=== PATIENT | female | born 1935 | race Caucasian/White ===

== ENCOUNTER 2020-06-14 12:25 | Outpatient (REF) | payer MEDICARE, SELFPAY ==
[2020-06-14 14:30] LABS: Alanine Aminotransferase 14 U/L (0-31); Alkaline Phosphatase 87 U/L (39-117); Anion Gap 14 (12-20); Aspartate Amino Transferase 12 U/L (5-31); Bilirubin Total 0.4 mg/dL (0.0-1.0); Blood Urea Nitrogen 30 mg/dL (9-16); Carbon Dioxide 25 mmol/L (22-29); Chloride 104 mmol/L (96-108); Estimated Glomerular Filt Rate 26; Glucose Random 81 mg/dL (60-115); Potassium 4.1 mmol/L (3.3-5.1); Sodium 139 mmol/L (135-145); Total Protein 6.8 g/dL (6.5-8.0)
[2020-06-14 14:33] LABS: B Type Natriuretic Peptide 38 pg/mL (<100)
[2020-06-14 14:53] LABS: TSH reflex Free T4 0.94 uIU/mL (0.32-4.0)
== END 2020-06-14 12:26 | disposition home or self-care (01) ==
LOC: HO.HMGCLDS 12:25
PROVIDERS: PCP Nurse Practitioner Family; Visit Provider Nurse Practitioner Family
DX: R06.02 Shortness of breath (principal); I10 Essential (primary) hypertension
CPT/HCPCS: 36415; 80053; 83880; 84443

== ENCOUNTER 2021-04-11 11:28 | Outpatient (REF) | payer MEDICARE, SELFPAY ==
[2021-04-11 12:10] LABS: Influenza A PCR NEGATIVE (Negative); Influenza B PCR NEGATIVE (Negative); Resp Syncy Virus RNA Qual PCR NEGATIVE (Negative); SARS COV2 PCR INHOUSE POSITIVE (Negative)
== END 2021-04-11 11:29 | disposition home or self-care (01) ==
LOC: HO.LNP 11:28
PROVIDERS: Visit Provider Nurse Practitioner Family
DX: R11.0 Nausea (principal); R63.0 Anorexia; Z20.822 Contact with and (suspected) exposure to COVID-19
CPT/HCPCS: 0241U

== ENCOUNTER 2022-04-30 12:53 | Outpatient (REF) | payer MEDICARE, SELFPAY ==
[2022-04-30 14:15] LABS: Basophils Absolute Auto 0.1 X10*3/uL (0.0-0.2); Basophils Percent Auto 0.3 % (0-2); Eosinophils Absolute Auto 0.2 X10*3/uL (0.0-0.4); Eosinophils Percent Auto 1.2 % (0-4); Hematocrit 39.3 % (37.0-47.0); Hemoglobin 12.3 g/dl (12.0-16.0); Imm Gran Abs Auto 0.11 X10*3/uL (0.00-0.03); Imm Gran Pct Auto 0.7 % (0.0-0.4); Lymphocytes Absolute Auto 3.9 X10*3/uL (1.2-4.9); MANUAL DIFF FLAG NO; Mean Corpuscular HGB Conc 31.3 g/dl (31.0-35.0); Mean Corpuscular Hemoglobin 29.5 pg (27.0-33.0); Mean Corpuscular Volume 94.2 fL (80.0-98.0); Mean Platelet Volume 9.8 fL (9.4-12.3); Monocytes Percent Auto 6.1 % (2-11); Neutrophils Percent Auto 67.7 % (45-73); Platelet Count 427 X10*3/uL (160-400); Red Blood Count 4.17 X10*6/uL (4.20-5.50); Red Cell Distribution Width 13.9 % (11.0-16.0); White Blood Count 16.2 X10*3/uL (4.8-10.8)
[2022-04-30 14:58] LABS: B Type Natriuretic Peptide 51 pg/mL (<100)
[2022-04-30 15:40] LABS: Alanine Aminotransferase 9 U/L (0-31); Albumin Level 3.9 g/dL (3.5-5.0); Alkaline Phosphatase 90 U/L (39-117); Anion Gap 16 (12-20); Aspartate Amino Transferase 12 U/L (5-31); Bilirubin Total 0.6 mg/dL (0.0-1.0); Blood Urea Nitrogen 34 mg/dL (9-16); Calcium 9.3 mg/dL (8.4-10.2); Carbon Dioxide 25 mmol/L (22-29); Chloride 106 mmol/L (96-108); Cholesterol 174 mg/dL; Estimated Glomerular Filt Rate 25; Glucose Fasting 78 mg/dL (60-99); Glucose Random 78 mg/dL (60-115); HDL Cholesterol 42 mg/dL; LDL Cholesterol Calculated 108 mg/dl; Sodium 142 mmol/L (135-145); TSH reflex Free T4 1.15 uIU/mL (0.32-4.0); Total Protein 6.6 g/dL (6.5-8.0); Triglycerides 120 mg/dL
== END 2022-04-30 12:54 | disposition home or self-care (01) ==
LOC: HO.HMGCLDS 12:53
PROVIDERS: PCP Nurse Practitioner Family; Visit Provider Nurse Practitioner Family
DX: R30.0 Dysuria (principal); R60.9 Edema, unspecified; R06.02 Shortness of breath
CPT/HCPCS: 36415; 80053; 80061; 83880; 84443; 85025

== ENCOUNTER 2022-05-03 07:49 | Outpatient (REF) | payer MEDICARE, SELFPAY ==
[2022-05-03 11:39] LABS: Appearance Urine Clear; Color Urine Yellow; Glucose Urine UA Negative (Negative); Leukocyte Esterase Urine Negative (Negative); Nitrite Urine Negative (Negative); PH 6.5 (5.0-9.0); Specific Gravity - Urine 1.015 (1.005-1.025); Urine Blood Negative (Negative); Urine Ketones Negative (Negative); Urine Protein Negative (Neg-Trace)
== END 2022-05-03 07:50 | disposition home or self-care (01) ==
LOC: HO.HMGCLNP 07:49
PROVIDERS: Visit Provider Nurse Practitioner Family
DX: R30.0 Dysuria (principal); R06.02 Shortness of breath
CPT/HCPCS: 81003; 87086

== ENCOUNTER 2022-05-06 12:44 | Outpatient (REF) | payer MEDICARE, SELFPAY ==
--- NOTE | ~2022-05-06 | XR_ITS ---
EXAMINATION: XR CHEST 2 VIEWS CLINICAL INFORMATION: Shortness of breath. COMPARISON: None. TECHNIQUE: Frontal and lateral views of the chest were obtained. FINDINGS: The heart, great vessels, pulmonary vasculature and mediastinum are normal. The lungs show no focal infiltrate, effusion or pneumothorax. There is mild to moderate platelike scar/subsegmental atelectasis at the right base. There is no acute osseous abnormality. There is a moderately severe thoracolumbar Scoliosis. XR/XR chest 2V IMPRESSION: 1. No focal infiltrate or congestive heart clear is seen. 2. There is chronic right base mild to moderate platelike scar/subsegmental atelectasis.
[2022-05-06 14:26] LABS: D Dimer High Sensitivity 536 NG/ML
== END 2022-05-06 12:45 | disposition home or self-care (01) ==
LOC: HO.HMGCLDS 12:44
PROVIDERS: Visit Provider Nurse Practitioner Family
DX: R06.02 Shortness of breath (principal)
CPT/HCPCS: 71046; 85379

== ENCOUNTER 2022-05-09 14:30 | Outpatient (REF) | payer MEDICARE, SELFPAY ==
--- NOTE | ~2022-05-09 | US_ITS ---
EXAMINATION: US VENOUS ULTRASOUND WITH DOPPLER LOWER EXTREMITY, BILATERAL CLINICAL INFORMATION: Elevated d-dimer COMPARISON: None TECHNIQUE: Ultrasound of the deep veins is performed from the hip to the calf with compression sonography and color and pulse Doppler assessment. Spectral analysis with color-flow imaging is performed. FINDINGS: RIGHT: There is normal venous compression and respiratory variation and augmented flow. The visualized common femoral vein, superficial femoral vein, profunda femoral vein, popliteal vein, and the trifurcation region shows no evidence of deep venous thrombosis. There is no significant popliteal fossa cyst. There is a complex Freeman's cyst measuring 2.1 x 4.3 x 1.5 cm LEFT: There is normal venous compression and respiratory variation and augmented flow. The visualized common femoral vein, superficial femoral vein, profunda femoral vein, popliteal vein, and the trifurcation region shows no evidence of deep venous thrombosis. There is no significant popliteal fossa cyst. There is a complex Freeman's cyst present measuring 2.9 x 4.7 x 1.5 cm If the patient's symptoms persist, followup ultrasound in 5 days 7 days might be of value to exclude proximal propagation from a non-visualized calf vein. US/US venous duplex LE BI IMPRESSION: No DVT demonstrated in either lower extremity. Bilateral complex Freeman's cysts.
--- NOTE | ~2022-05-09 | NM_ITS ---
EXAMINATION: NM LUNG IMAGE PERFUSION CLINICAL INFORMATION: Elevated d-dimer. R79.89. Dyspnea. COMPARISON: Chest x-ray 05/06/2022 TECHNIQUE: 3.1 mCi technetium 99m MAA was given for perfusion. Multiple images of the lung performed. FINDINGS: There is homogeneous perfusion of the right and left lungs. No perfusion defect. NM/NM pul perfusion IMPRESSION: Normal lung perfusion exam. No evidence of pulmonary embolism.
== END 2022-05-09 14:31 | disposition home or self-care (01) ==
LOC: HO.US 14:30
PROVIDERS: Visit Provider Nurse Practitioner Family
DX: R60.0 Localized edema (principal); R79.89 Other specified abnormal findings of blood chemistry; R06.02 Shortness of breath
CPT/HCPCS: 78580; 93970; A9540

== ENCOUNTER → 2022-06-20 10:47 | Outpatient (REF) | payer MEDICARE, SELFPAY ==
--- NOTE | 2022-06-20 10:52 | CA_ITS ---
Transthoracic Echocardiogram Patient (Last, First, Middle): Spencer Benitez E Gender: Female Date of : 1935 Age: 87 Procedure Date: 06/20/2022 Procedure Type: Transthoracic Echocardiogram Location: OP Height: 165. cm Weight: 90.72 kg BSA: 1.98 m2 Heart Rate: 68 bpm BP: 140 / 85 mmHg Medical Services Coordinator: AUDREY Waddell MD: Seng Dalton [facility] [employer]: Tayo Cheung MD Symptoms: R60.9 - Edema, unspecified Study Quality: Poor ECG Rhythm: Sinus Conclusions: - 1. Technically limited study 2. Normal LV systolic function with impaired relaxation filling pattern 3. Limited visualization cardiac valves with normal cardiac valvular Doppler 4. Normal RV systolic pressure Findings Left Ventricle Normal left ventricular size and systolic function. The visually estimated ejection fraction is between 60-65%. Regional wall motion abnormalities can not be excluded due to suboptimal endocardial definition. Spectral Doppler is indicative of an impaired relaxation filling pattern. E/E prime ratio is between 8 and 15 consistent with indeterminate filling pressures. Right Ventricle There is normal right ventricular systolic function. Atria The left atrium is normal in size. Interatrial shunt cannot be excluded. The right atrium was not well visualized. Aortic Valve The aortic valve was not well visualized. There is mild calcification of the aortic valve. There is no aortic valve stenosis. There is no aortic valve regurgitation. Mitral Valve The mitral valve was not well visualized. There is trace mitral valve regurgitation. There is no mitral valve stenosis. Pulmonic Valve The pulmonic valve was not well visualized. Tricuspid Valve Likely normal tricuspid valve structure and function. There is trace tricuspid valve regurgitation. The right ventricular systolic pressure is normal. The right ventricular systolic pressure is 26 mmHg. Normal right atrial pressure. Great Vessels The aorta was not well visualized. The pulmonary artery was not well visualized. Venous The inferior vena cava is normal in size and collapses greater than 50% with inspiration. Pericardium/Pleural The pericardium was not well visualized. Prior Study Comparison No prior study available for comparison. Measurements 2D Linear Measurements IVSd: 1.21 0.6-0.9/0.6-1.0 cm LVIDd: 4.16 3.9-5.3/4.2-5.9 cm LVIDd Index: 2.10 2.4-3.2/2.2-3.1 cm/m2 LVIDs: 2.08 2.0-3.6 cm LVPWd: 1.13 0.7-1.1 cm LA Diam: 2.70 2.7-3.8/3.0-4.0 cm LAIDs Index: 1.36 1.5-2.3 cm/m2 LV Mass: 210.74 67-162/88-224 g LV Mass Index: 106.43 43-95/49-115 g/m2 LVOT Diam: 2.10 3.0+(-)1.3 cm 2D Systolic Function EF 4C: 60.40 >55% EF 2C: 68.50 >55% EF BiP: 64.10 >55% Mitral Valve MV Pk E: 0.96 MV PK A: 1.54 MV Decel Time: 339.00 E/A: 0.60 E'Lateral: 6.13 E'Medial: 5.34 E/E' Med: 18.00 E/E' Lat: 15.70 PHT: 99.00 MVA PHT: 2.22 Decel Scurry: 2.83 Aortic Valve AoV Pk Gaston: 1.65 AoV Mn Gaston: 1.20 AoV VTI: 0.42 AoV Pk Grad: 11.00 Aov Mn Grad: 6.00 ANGELINA Cont.VTI: 2.96 LVOT LVOT Pk Gaston: 1.39 LVOT Mn Gaston: 1.02 LVOT VTI: 0.36 LVOT Pk Grad: 8.00 LVOT Mn Grad: 5.00 LVOT Diam: 2.10 LVOT Area: 3.46 Diastolic Function MV Pk E: 0.96 MV Pk A: 1.54 E/A: 0.60 E'Medial: 5.34 E/E' Med: 18.00 E' Laterial: 6.13 E/E' Lat: 15.70 Right Ventricle TAPSE (mm): 23.90 TVS' Gaston: 13.10 Tricuspid Valve TR Pk Gaston: 2.38 TR Pk Grad: 23.00 RA Press: 3.00 RVSP: 26.00 Great Vessels Aorta Sinus of Valsalva: 3.20 2.0-3.5 cm Ao Asc: 3.70 2.1-3.4 cm Pulmonary Valve PV Pk Gaston: 0.81 Peak PV Grad: 3.00 Updated in Other Vendor System with Status of Final Tayo Cheung MD electronically signed on 06/20/2022 3:38:33 PM with status of Final
== END ==
LOC: HO.CARD 10:47
PROVIDERS: Visit Provider Nurse Practitioner Family
DX: R60.9 Edema, unspecified (principal)
CPT/HCPCS: 93306

== ENCOUNTER → 2022-06-26 11:02 | Outpatient (REF) | payer MEDICARE, SELFPAY | LOC: HO.NUCMED 11:02 | PROVIDERS: PCP Nurse Practitioner Family; Visit Provider Nurse Practitioner Family | DX: Z13.89 Encounter for screening for other disorder (principal) ==

== ENCOUNTER 2022-08-24 21:21 | Emergency (ER) | payer MEDICARE, SELFPAY ==
--- NOTE | ~2022-08-24 | CT_ITS ---
EXAMINATION: CT CHEST WITHOUT CONTRAST CT ABDOMEN AND PELVIS WITHOUT CONTRAST CLINICAL INFORMATION: Status post fall 6 days ago, worsening pain. COMPARISON: Chest x-ray of 05/06/2022, CT abdomen and pelvis of 12/02/2014. TECHNIQUE: Multidetector volumetric imaging was performed from the thoracic inlet through the pubic symphysis following the administration of: Oral contrast: No Intravenous contrast: No Sagittal and coronal reformatted images were obtained on the technologist workstation. Total exam dose-length product: 1298 mGy-cm FINDINGS: CHEST: VASCULAR: The aorta is normal in caliber. Moderate calcific atherosclerosis of the aorta. No evidence of periaortic fat stranding or hematoma. Moderate to severe calcifications of the left coronary arteries. AORTIC ISTHMUS: Normal. MEDIASTINUM: No mediastinal fluid or hematoma. No hilar or mediastinal lymphadenopathy. Cardiac size is normal. Small hiatal hernia. Small volume low-density material is noted in the right mainstem bronchus representing mucus secretion. Trachea and central bronchi are otherwise well patent. LUNG: Mild biapical pleural parenchymal scarring. Scattered areas of subsegmental atelectasis in the lingula as well as the right middle lobe and bilateral lower lobe at the lung bases. PLEURA: No evidence of pneumothorax. No evidence of pleural mass or thickening. No left pleural effusion. Very small right pleural effusion. CHEST WALL/AXILLA: Unremarkable. ABDOMEN/PELVIS: LIVER : The liver is normal in size, shape, and attenuation. No focal hepatic lesion or biliary ductal dilatation is present. GALLBLADDER, AND BILIARY TREE: The gallbladder is mildly distended. Multiple small layering calcified and noncalcified gallstones are noted. No evidence of gallbladder wall thickening. No evidence of pericholecystic inflammatory changes. No evidence of intrahepatic or extrahepatic biliary ductal dilatation. No filling defect is noted in the common bile duct. PANCREAS: Normal; no mass or surrounding fluid. SPLEEN: Normal size. No focal lesion. ADRENAL GLANDS: Normal; no mass. KIDNEYS AND URETERS: The kidneys are normal in size for patient's age. There is mild diffuse bilateral renal cortical thinning. Vascular calcifications are noted in the bilateral renal kate. Small calcification measuring 0.5 cm in the lower pole of the left kidney may represent a calculus or vascular calcification. No hydroureteronephrosis or perinephric stranding. URINARY BLADDER: No focal mass or wall thickening seen. No bladder calculi. GASTROINTESTINAL TRACT: The stomach is adequately distended and unremarkable. No evidence of from abnormal small bowel dilatation. The colon is normal in caliber. No evidence of colonic wall thickening or pericolonic fat stranding. Pancolonic diverticulosis. An appendix is normal. VASCULAR STRUCTURES: The aortoiliac vessels are normal in caliber. Moderate calcific atherosclerosis of the aortoiliac vessels. LYMPH NODES: No evidence of pathologically enlarged lymph nodes. PELVIC VISCERA: Stable and unremarkable CT appearance of the uterus. No adnexal mass. Multiple phleboliths are noted in the pelvis. PERITONEAL CAVITY: No evidence of free intraperitoneal air or fluid. ABDOMINAL WALL: No significant hernia is appreciated. THORACIC AND LUMBAR SPINE: Diffuse osteopenia. Normal sagittal alignment of the thoracic spine. Moderate to severe compression fracture of T11 is noted with approximately 70% loss of body height, the finding is new compared to previous CT scan of 2015. Remainder of the vertebral body heights are maintained. Mild narrowing of the multiple intervertebral disc spaces in the thoracic spine with vacuum disc phenomenon noted in the mid and lower thoracic spine. Lumbar vertebral body heights are maintained. There is stable grade 1 anterolisthesis of L4 over L5. Degenerative disc disease is noted at multiple levels. Facet arthropathy is noted in the mid to lower lumbar spine. OTHER OSSEOUS STRUCTURES: The imaged portions of the clavicles, scapulae, and proximal humeri are intact. Displaced fractures are noted of the posterior lateral segment of the right 11th and 10th ribs. Sternum is intact. No sacral or pelvic fracture, The hips are intact. CT/CT abdomen pelvis wo IV con IMPRESSION: 1. Displaced fractures of the posterior-lateral segment of the right 10th and 11th ribs. No evidence of pneumothorax. Small right pleural effusion. Streaky atelectasis in the right middle lobe, lingula and bilateral lower lobes. 2. Moderate to severe compression fracture of T11 vertebral body with approximately 70% loss of body height, the finding is new compared to previous CT scan of 2015. 3. No evidence of acute traumatic injury in the abdomen and pelvis. 4. Pancolonic diverticulosis without acute diverticulitis. 5. Cholelithiasis.
[2022-08-24 21:27] VITALS: BP 142/93; BP 150/100; PULSE 105; PULSE 95; RESP 16; TEMP 37.2; O2SAT 95; BMI 45.2
--- NOTE | 2022-08-24 21:41 | ED_ITS ---
HPI - General Adult General Chief complaint: General Medical Stated complaint: Abd Pain Time Seen by Provider: 08/24/22 21:30 Source: patient Mode of arrival: EMS Limitations: no limitations History of Present Illness HPI narrative: Patient comes to the emergency room complaining of posterior rib pain on the right side and right-sided abdominal pain. Patient states that 6 days ago she fell between the toilet and the bathtub, when she landed she had the bathtub with the right side of her body. Patient states she did not hit her head or neck, did not lose consciousness, no pain at this time. Not on blood thinners. Patient states that the next day, went to Urgent Care, x-rays were negative according to the patient for any fractures. Patient states that she has been trying to deal with the pain at home, tried tramadol, made her vomit violently, then her PCP gave her Vicodin which helped significantly with the pain. However, over the last 12 hours, the pain has gradually been getting much worse, but now it is in the right-side of the abdomen which was not there before. Patient denies nausea vomiting or diarrhea. Related Data Home Medications Medication Instructions Recorded Confirmed ezetimibe 10 mg tablet 10 mg PO DAILY 01/27/20 01/08/22 brimonidine 0.2 % eye drops 1 drp ophthalmic (eye) Q12H 08/27/21 01/08/22 latanoprost 0.005 % eye drops 0 drp ophthalmic (eye) 08/27/21 01/08/22 timolol maleate 0.5 % eye drops 0 drp ophthalmic (eye) 08/27/21 01/08/22 aspirin 81 mg tablet,delayed 81 mg PO DAILY 01/08/22 01/08/22 release (Talia Low Dose Aspirin) vit C 250 mg-E 90 mg-zinc 40 1 tab PO BID 01/08/22 01/08/22 mg-copper 1 [id number] chew tablet (PreserVision AREDS-2) Previous Rx's Medication Instructions Recorded alprazolam 0.5 mg tablet 0.5 mg PO BID PRN anxiety 30 days 04/30/21 #60 tabs Knee brace #2 ea 08/27/21 nystatin 100,000 unit/gram topical 1 appl topical DAILY #60 grams 01/08/22 powder irbesartan 150 1 tab PO DAILY 30 days #90 tabs 01/11/22 mg-hydrochlorothiazide 12.5 mg tablet alprazolam 0.5 mg tablet 0.5 mg PO BID 30 days #60 tabs 06/03/22 prednisone 5 mg tablet 5 mg PO DAILY #30 tabs 06/03/22 ezetimibe 10 mg tablet 10 mg PO DAILY 90 days #90 tabs 06/06/22 irbesartan 150 1 tab PO DAILY #90 tabs 06/27/22 mg-hydrochlorothiazide 12.5 mg tablet furosemide 20 mg tablet 20 mg PO QAM 5 days #5 tabs 07/01/22 hydrocodone 5 mg-acetaminophen 325 1 tab PO DAILY PRN pain 30 days 08/21/22 mg tablet #30 tabs oxycodone 5 mg tablet 5 mg PO BID PRN pain #7 tabs 08/25/22 polyethylene glycol 3350 17 17 g PO BID #119 grams 08/25/22 gram/dose oral powder (Miralax) Allergies Allergy/AdvReac Type Severity Reaction Status Date / Time codeine [CODEINE] Allergy Unknown EXACERBATES Verified 05/07/22 13:19 HERNIA IN ESOPHAGUS? Sulfa (Sulfonamide Allergy Unknown rash Verified 05/07/22 13:19 Antibiotics) amoxicillin AdvReac Unknown Yeast Verified 05/07/22 13:19 infection rosuvastatin [Crestor] AdvReac Unknown Worsened Verified 05/07/22 13:19 PMR Codeine Phosphate Allergy Unknown unknown Uncoded 05/07/22 13:19 Clotrimazole-Betamethasone AdvReac Unknown Red Uncoded 05/07/22 13:19 blotches on skin Review of Systems Review of Systems: Constitutional : No Weight loss, No Fever, No Chills, No Night Sweats, No Fatigue, No Malaise ENT/Mouth : No Hearing loss, No Ear Pain, No Nasal Congestion, No Sinus Pain, No Hoarseness, No sore throat, No Rhinorrhea, No Swallowing Difficulty Eyes: No Eye Pain, No Swelling, No Redness, No Foreign Body, No Discharge, No Vision Changes Cardiovascular : No Chest Pain, No SOB, No Dyspnea on Exertion, No Orthopnea, No Edema, No Palpitations Respiratory : No Cough, No Sputum, No Wheezing, No Smoke Exposure, No Dyspnea Gastrointestinal : No Nausea, No Vomiting, No Diarrhea, No Constipation, complaining of right-sided abdominal pain No Hematochezia, No Melena Genitourinary : no irregular bleeding, No Dysuria, No Urinary Frequency, No Hematuria, No Urinary Incontinence, No Urgency, No Flank Pain, No Urinary Flow Changes, No Hesitancy Musculoskeletal : Complaining of right back pain/right rib pain posteriorly and laterally, No joint pain, No Myalgias, No Joint Swelling Skin : No Skin Lesions, No rash Neuro : No Weakness, No Numbness, No Paresthesias, No Loss of Consciousness, No Dizziness, No Headache Psych : No Anxiety/Panic, No Depression, No SI/HI/AH/VH, No Social Issues, Heme/Lymph: No Bruising, No Bleeding,No Lymphadenopathy Endocrine : No Polyuria, No Polydipsia, No Temperature Intolerance [facility] Past Medical History Medical History CKD (chronic kidney disease) HTN (hypertension) Polymyalgia rheumatica Surgical History History of breast lump/mass excision S/P tonsillectomy and adenoidectomy Family History Family History Father CVD (cardiovascular disease) Mother Cancer Social History [facility] Alcohol intake: current Alcohol intake frequency: holidays/special occasions only Alcohol type: beer, wine and hard liquor Patient Tobacco Use Status: Former Tobacco user Quit Date: quit 4-5 years ago Smoked in Last 30 Days: No e-Cigarette/Vaping Use: Never Used Second Hand Smoke Exposure: No Use of substances other than those prescribed or required for medical reasons: No Advance Directives: No Advance Directives Information Provided: Yes Current occupational status: retired Cognitive needs: No Hearing needs: No Vision needs: No Physical Exam ED Vital Signs: Vital Signs - 24 hr 08/24/22 21:27 08/24/22 22:53 08/25/22 00:33 Temperature 98.9 F Pulse Rate 95 88 77 Respiratory Rate 16 15 16 Blood Pressure 142/93 H 139/90 H Pulse Oximetry 95 98 94 Oxygen Delivery Method Room Air Room Air Room Air 08/25/22 00:39 Temperature 97.6 F Pulse Rate 86 Respiratory Rate 14 Blood Pressure 146/50 H Pulse Oximetry 95 Oxygen Delivery Method Room Air BMI result Body Mass Index 45.2 Const Other: Appearance: Alert. Oriented X3. No acute distress. Eyes: Pupils equal, round and reactive to light. ENT: Pharynx normal. Neck: Normal inspection. Neck supple. No lymph nodes noted. No crepitus CVS: Normal heart rate and rhythm. Pulses normal. Normal S1 and S2 Respiratory: No respiratory distress. Breath sounds normal. No Wheezing. No rales Abdomen: Soft , right-sided abdominal pain, upper and lower quadrant, right flank pain, No rigidity. No distention. Skin: Skin warm and dry. Normal skin color. Normal skin turgor. Musculoskeletal: Pain to palpation over the ribs on the right side, both posterior and laterally Extremities: No lower extremity edema. No Lacerations. No Rash Neuro: Oriented X 3. No motor deficit. No sensory deficit. Moving all extremities. No slurred speech. CN 2 through 12 grossly intact Psych: calm, cooperative, normal affect Course Course Course Narrative: -labs and CT scan painting -patient was given morphine sulfate and Zofran IV Medications Administered Discontinued Medications Generic Name Dose Route Start Last Admin Trade Name Freq PRN Reason Stop Dose Admin Hydromorphone HCl 0.5 mg 08/25/22 00:35 08/25/22 00:57 Hydromorphone Hcl 0.5 Mg/0.5 Ml Syringe IVPUSH 08/25/22 00:36 0.5 mg ONCE ONE Administration Protocol Morphine Sulfate 4 mg 08/24/22 21:39 08/24/22 23:10 Morphine Sulfate 4 Mg/Ml Cartridge IVPUSH 08/24/22 21:40 4 mg ONCE ONE Administration Protocol Ondansetron HCl 4 mg 08/24/22 22:57 08/24/22 23:10 Ondansetron Odt 4 Mg Tab.Rapdis TRANSLINGU 08/24/22 22:58 4 mg ONCE ONE Administration Medical Decision Making Medical Decision Making MDM Narrative: -white blood cell count elevated likely reactive to reactive leukocytosis -I discussed the CT findings with the patient, there is a T11 compression fracture. Patient states that she does not have any back pain at all. -I discussed with the patient that the patient has displayed rib fracture 10th and 11th, likely the source of the patient's pain. -case management and physical therapy consult were offered to the patient, patient declined, patient prefers to go home, states she lives at home with her grandson and his girlfriend who take care of her. Differential Diagnosis Differential Diagnoses: The differential diagnosis associated with the presentation includes (Old compression fracture, new compression fracture, rib fractures, rib contusion) Lab Data MDM Lab Attestation statement: I reviewed the patient's lab results. 08/24/22 22:26 08/24/22 22: Labs: Lab Results 08/24/22 08/24/22 08/24/22 Range/Units 22:26 22:26 22:26 WBC 13.3 H (4.8-10.8) X10*3/uL RBC 3.88 L (4.20-5.50) X10*6/uL Hgb 11.6 L (12.0-16.0) g/dl Hct 35.8 L (37.0-47.0) % MCV 92.3 (80.0-98.0) fL MCH 29.9 (27.0-33.0) pg MCHC 32.4 (31.0-35.0) g/dl RDW 13.5 (11.0-16.0) % Plt Count 469 H (160-400) X10*3/uL MPV 9.3 L (9.4-12.3) fL Immature Gran % (Auto) 0.8 H (0.0-0.4) % Neut % (Auto) 64.0 (45-73) % Lymph % (Auto) 22.0 (20-40) % [place] % (Auto) 8.4 (2-11) % Eos % (Auto) 4.4 H (0-4) % Baso % (Auto) 0.4 (0-2) % Lymph # (Auto) 2.9 (1.2-4.9) X10*3/uL [place] # (Auto) 1.1 (0.1-1.2) X10*3/uL Eos # (Auto) 0.6 H (0.0-0.4) X10*3/uL Baso # (Auto) 0.1 (0.0-0.2) X10*3/uL Abs Immat Gran (auto) 0.10 H (0.00-0.03) X10*3/uL Absolute Neuts (auto) 8.5 H (2.0-8.3) x10*3/uL Absolute Nucleated RBC 0.000 (0.0-0.012) X10*3/uL Nucleated RBC % (auto) 0.0 (0.0-0.2) /100WBC PT 12.1 (10.0-13.1) SEC INR 1.1 (0.9-1.1) Sodium 141 (135-145) mmol/L Potassium 4.5 (3.3-5.1) mmol/L Chloride 106 (96-108) mmol/L Carbon Dioxide 26 (22-29) mmol/L Anion Gap 14 (12-20) BUN 33 H (9-16) mg/dL Creatinine 2.19 H (0.5-1.4) mg/dL Estim Creat Clear Calc 24.7 Estimated GFR 21 Random Glucose 107 (60-115) mg/dL Calcium 9.4 (8.4-10.2) mg/dL Total Bilirubin 0.6 (0.0-1.0) mg/dL Direct Bilirubin 0.2 (0.0-0.5) mg/dL AST 19 (5-31) U/L ALT 17 (0-31) U/L Alkaline Phosphatase 100 (39-117) U/L Total Protein 6.2 L (6.5-8.0) g/dL Albumin 3.5 (3.5-5.0) g/dL Radiology Impression Radiologist Impression: FINDINGS: CHEST: VASCULAR: The aorta is normal in caliber. Moderate calcific atherosclerosis of the aorta. No evidence of periaortic fat stranding or hematoma. Moderate to severe calcifications of the left coronary arteries. AORTIC ISTHMUS: Normal. MEDIASTINUM: No mediastinal fluid or hematoma.? No hilar or mediastinal lymphadenopathy. Cardiac size is normal. Small hiatal hernia. Small volume low-density material is noted in the right mainstem bronchus representing mucus secretion. Trachea and central bronchi are otherwise well patent. LUNG: Mild biapical pleural parenchymal scarring. Scattered areas of subsegmental atelectasis in the lingula as well as the right middle lobe and bilateral lower lobe at the lung bases. PLEURA: No evidence of pneumothorax. No evidence of pleural mass or thickening. No left pleural effusion. Very small right pleural effusion. CHEST WALL/AXILLA: Unremarkable. ABDOMEN/PELVIS: LIVER : The liver is normal in size, shape, and attenuation. No focal hepatic lesion or biliary ductal dilatation is present.? GALLBLADDER, AND BILIARY TREE: The gallbladder is mildly distended. Multiple small layering calcified and noncalcified gallstones are noted. No evidence of gallbladder wall thickening. No evidence of pericholecystic inflammatory changes. No evidence of intrahepatic or extrahepatic biliary ductal dilatation. No filling defect is noted in the common bile duct. PANCREAS: Normal; no mass or surrounding fluid.? SPLEEN: Normal size.? No focal lesion.? ADRENAL GLANDS: Normal; no mass.? KIDNEYS AND URETERS: The kidneys are normal in size for patient's age. There is mild diffuse bilateral renal cortical thinning. Vascular calcifications are noted in the bilateral renal kate. Small calcification measuring 0.5 cm in the lower pole of the left kidney may represent a calculus or vascular calcification. No hydroureteronephrosis or perinephric stranding.? URINARY BLADDER: No focal mass or wall thickening seen.? No bladder calculi.? GASTROINTESTINAL TRACT: The stomach is adequately distended and unremarkable. No evidence of from abnormal small bowel dilatation. The colon is normal in caliber. No evidence of colonic wall thickening or pericolonic fat stranding. Pancolonic diverticulosis. An appendix is normal. VASCULAR STRUCTURES: The aortoiliac vessels are normal in caliber. Moderate calcific atherosclerosis of the aortoiliac vessels. LYMPH NODES: No evidence of pathologically enlarged lymph nodes.? PELVIC VISCERA: Stable and unremarkable CT appearance of the uterus. No adnexal mass. Multiple phleboliths are noted in the pelvis. PERITONEAL CAVITY: No evidence of free intraperitoneal air or fluid. ABDOMINAL WALL: No significant hernia is appreciated.? THORACIC AND LUMBAR SPINE: Diffuse osteopenia. Normal sagittal alignment of the thoracic spine. Moderate to severe compression fracture of T11 is noted with approximately 70% loss of body height, the finding is new compared to previous CT scan of 2015. Remainder of the vertebral body heights are maintained. Mild narrowing of the multiple intervertebral disc spaces in the thoracic spine with vacuum disc phenomenon noted in the mid and lower thoracic spine. Lumbar vertebral body heights are maintained. There is stable grade 1 anterolisthesis of L4 over L5. Degenerative disc disease is noted at multiple levels. Facet arthropathy is noted in the mid to lower lumbar spine. OTHER OSSEOUS STRUCTURES: The imaged portions of the clavicles, scapulae, and proximal humeri are intact. Displaced fractures are noted of the posterior lateral segment of the right 11th and 10th ribs. Sternum is intact. No sacral or pelvic fracture, The hips are intact. CT/CT chest wo IV con IMPRESSION: 1.? Displaced fractures of the posterior-lateral segment of the right 10th and 11th ribs. No evidence of pneumothorax. Small right pleural effusion. Streaky atelectasis in the right middle lobe, lingula and bilateral lower lobes. 2.? Moderate to severe compression fracture of T11 vertebral body with approximately 70% loss of body height, the finding is new compared to previous CT scan of 2015. 3.? No evidence of acute traumatic injury in the abdomen and pelvis. 4.? Pancolonic diverticulosis without acute diverticulitis. 5.? Cholelithiasis. ? Discharge Plan Discharge Clinical Impression: Fractured rib, Fall Patient Disposition: Home, Self-Care Instructions: Rib Fracture (ED) Additional Instructions: Please follow-up with your primary care physician tomorrow. If you have any worsening or new symptoms, please return to the emergency room or call 911 Prescriptions: New oxycodone 5 mg tablet 5 mg PO BID PRN (Reason: pain) Qty: 7 0RF Rx Instructions: Partial Fill upon patient request. polyethylene glycol 3350 [Miralax] 17 gram/dose powder 17 g PO BID Qty: 119 0RF No Action alprazolam 0.5 mg tablet 0.5 mg PO BID PRN (Reason: anxiety) 30 Days Qty: 60 2RF irbesartan-hydrochlorothiazide 150-12.5 mg tablet 1 tab PO DAILY 30 Days Qty: 90 0RF alprazolam 0.5 mg tablet 0.5 mg PO BID 30 Days Qty: 60 0RF prednisone 5 mg tablet 5 mg PO DAILY Qty: 30 4RF ezetimibe 10 mg tablet 10 mg PO DAILY 90 Days Qty: 90 4RF irbesartan-hydrochlorothiazide 150-12.5 mg tablet 1 tab PO DAILY Qty: 90 0RF furosemide 20 mg tablet 20 mg PO QAM 5 Days Qty: 5 0RF hydrocodone-acetaminophen 5-325 mg tablet 1 tab PO DAILY PRN (Reason: pain) 30 Days Qty: 30 0RF ezetimibe 10 mg tablet 10 mg PO DAILY timolol maleate 0.5 % drops 0 drp ophthalmic (eye) brimonidine 0.2 % drops 1 drp ophthalmic (eye) Q12H latanoprost 0.005 % drops 0 drp ophthalmic (eye) (DME) Knee brace Misc See Rx Instructions .Route Qty: 2 0RF Rx Instructions: Bilateral knee braces (hinged knee braces) aspirin [Talia Low Dose Aspirin] 81 mg tablet,delayed release (DR/EC) 81 mg PO DAILY PreserVision AREDS-2 250-90-40-1 mg tablet,chewable 1 tab PO BID nystatin 100,000 unit/gram powder 1 appl topical DAILY Qty: 60 1RF
--- NOTE | 2022-08-24 22:28 | PC.NURSE ---
unable to obtain IV access, this RN and Elsa VIGIL both attempted. MD Mcfarland aware. Just requesting lab work at this time, will re-evaluate when lab work is back for need for IV
[2022-08-24 22:30] LABS: MANUAL DIFF FLAG NO
[2022-08-24 22:33] LABS: Basophils Absolute Auto 0.1 X10*3/uL (0.0-0.2); Basophils Percent Auto 0.4 % (0-2); Eosinophils Absolute Auto 0.6 X10*3/uL (0.0-0.4); Eosinophils Percent Auto 4.4 % (0-4); Hematocrit 35.8 % (37.0-47.0); Hemoglobin 11.6 g/dl (12.0-16.0); Imm Gran Pct Auto 0.8 % (0.0-0.4); Lymphocytes Absolute Auto 2.9 X10*3/uL (1.2-4.9); Mean Corpuscular HGB Conc 32.4 g/dl (31.0-35.0); Mean Corpuscular Hemoglobin 29.9 pg (27.0-33.0); Mean Corpuscular Volume 92.3 fL (80.0-98.0); Mean Platelet Volume 9.3 fL (9.4-12.3); Monocytes Absolute Auto 1.1 X10*3/uL (0.1-1.2); Monocytes Percent Auto 8.4 % (2-11); Neutrophils Absolute Auto 8.5 x10*3/uL (2.0-8.3); Platelet Count 469 X10*3/uL (160-400); Red Blood Count 3.88 X10*6/uL (4.20-5.50); Red Cell Distribution Width 13.5 % (11.0-16.0); White Blood Count 13.3 X10*3/uL (4.8-10.8)
[2022-08-24 22:44] LABS: INTERNATIONAL NORM RATIO 1.1 (0.9-1.1); Prothrombin Time 12.1 SEC (10.0-13.1)
[2022-08-24 22:47] LABS: Alanine Aminotransferase 17 U/L (0-31); Albumin Level 3.5 g/dL (3.5-5.0); Alkaline Phosphatase 100 U/L (39-117); Anion Gap 14 (12-20); Aspartate Amino Transferase 19 U/L (5-31); Bilirubin Direct 0.2 mg/dL (0.0-0.5); Bilirubin Total 0.6 mg/dL (0.0-1.0); Blood Urea Nitrogen 33 mg/dL (9-16); Calcium 9.4 mg/dL (8.4-10.2); Carbon Dioxide 26 mmol/L (22-29); Chloride 106 mmol/L (96-108); Creatinine Clr Calc Pharmacy 24.7; Estimated Glomerular Filt Rate 21; Glucose Random 107 mg/dL (60-115); Potassium 4.5 mmol/L (3.3-5.1); Sodium 141 mmol/L (135-145); Total Protein 6.2 g/dL (6.5-8.0)
[2022-08-24 22:53] VITALS: BP 139/90; PULSE 88; RESP 15; O2SAT 98
--- NOTE | 2022-08-24 22:58 | PC.NURSE ---
MD verbal order to cancel IV push zofran and to give sublingual. Also, to instead give morphine IM instead of IV. Both due to no IV access
[2022-08-24] MEDS: Ondansetron ODT 4 MG TAB.RAPDIS TRANSLINGU (23:10)
[2022-08-24] MEDS: Morphine Sulfate 4 MG/ML CARTRIDGE IVPUSH (23:10)
--- NOTE | 2022-08-25 00:32 | PC.NURSE ---
pt reports that the pain medication provided no relief, MD Mcfarland aware at this time
[2022-08-25 00:33] VITALS: PULSE 77; RESP 16; O2SAT 94
[2022-08-25 00:39] VITALS: BP 146/50; PULSE 86; RESP 14; TEMP 36.4; O2SAT 95
[2022-08-25] MEDS: HYDROmorphone HCl 0.5 MG/0.5 ML SYRINGE IVPUSH (00:57)
--- NOTE | 2022-08-25 01:12 | PC.NURSE ---
pt repostioned in bed for comfort and provided pain medication per MAR. No apparent distress at this time, awaiting CT scan
== END 2022-08-25 02:59 | disposition home or self-care (01) ==
PROVIDERS: Emergency Provider Emergency Medicine
DX: S22.41XA Multiple fractures of ribs, right side, initial encounter for closed fracture (principal); W19.XXXA Unspecified fall, initial encounter; Y93.89 Activity, other specified; Y92.012 Bathroom of single-family (private) house as the place of occurrence of the external cause; Y99.9 Unspecified external cause status; Z79.899 Other long term (current) drug therapy
CPT/HCPCS: 36415; 71250; 74176; 80048; 80076; 85025; 85610; 96374; 96375; 99284; J1170; J2270

== ENCOUNTER 2022-09-07 09:48 | Emergency (ER) | payer MEDICARE, SELFPAY ==
--- NOTE | ~2022-09-07 | XR_ITS ---
EXAMINATION: XR CHEST CLINICAL INFORMATION: Shortness of breath COMPARISON: May 06, 2022 and September 13, 2019 TECHNIQUE: AP portable view of the chest was obtained. FINDINGS: There is no evidence of acute parenchymal disease, pneumothorax, or pleural effusion. Heart normal size. No evidence of pulmonary edema. Mild persistent elevation of the left hemidiaphragm. Bilateral linear scarring lung bases. XR/XR chest 1V IMPRESSION: No acute disease.
[2022-09-07 09:54] VITALS: BP 147/91; PULSE 81; RESP 18; TEMP 36.4; O2SAT 99; BMI 33.3
--- NOTE | 2022-09-07 09:57 | ECG_ITS ---
Test Reason : DYSPNEA Blood Pressure : / mmHG Vent. Rate : 076 BPM Atrial Rate : 076 BPM P-R Int : 182 ms QRS Dur : 068 ms QT Int : 366 ms P-R-T Axes : 040 -10 066 degrees QTc Int : 411 ms Sinus rhythm with Premature atrial complexes Left ventricular hypertrophy with repolarization abnormality ( R in aVL ) Abnormal ECG No previous ECGs available Referred By: Generic ED Physician Electronically Signed By:NANCY HUNT MD
--- NOTE | 2022-09-07 11:10 | ED_ITS ---
HPI - General Adult General Chief complaint: Dyspnea Stated complaint: sent from , swollen legs, fractured ribs, SOB Time Seen by Provider: 09/07/22 10:59 Source: patient Mode of arrival: ambulatory Limitations: no limitations History of Present Illness HPI narrative: 87-year-old female came in from walk-in clinic in [place] for further evaluation, patient fell 2 weeks ago had a right-sided rib fracture senses then patient is not the same thinking that she is deteriorating patient is been complaining of right-sided chest pain and difficulty with breathing, bilateral lower extremities swelling. Patient lives home with her son, has no pain medication at home to help her with the pain. Related Data Home Medications Medication Instructions Recorded Confirmed ezetimibe 10 mg tablet 10 mg PO DAILY 01/27/20 01/08/22 brimonidine 0.2 % eye drops 1 drp ophthalmic (eye) Q12H 08/27/21 01/08/22 latanoprost 0.005 % eye drops 0 drp ophthalmic (eye) 08/27/21 01/08/22 timolol maleate 0.5 % eye drops 0 drp ophthalmic (eye) 08/27/21 01/08/22 aspirin 81 mg tablet,delayed 81 mg PO DAILY 01/08/22 01/08/22 release (Talia Low Dose Aspirin) vit C 250 mg-E 90 mg-zinc 40 1 tab PO BID 01/08/22 01/08/22 mg-copper 1 [id number] chew tablet (PreserVision AREDS-2) Previous Rx's Medication Instructions Recorded alprazolam 0.5 mg tablet 0.5 mg PO BID PRN anxiety 30 days 04/30/21 #60 tabs Knee brace #2 ea 08/27/21 nystatin 100,000 unit/gram topical 1 appl topical DAILY #60 grams 01/08/22 powder irbesartan 150 1 tab PO DAILY 30 days #90 tabs 01/11/22 mg-hydrochlorothiazide 12.5 mg tablet alprazolam 0.5 mg tablet 0.5 mg PO BID 30 days #60 tabs 06/03/22 prednisone 5 mg tablet 5 mg PO DAILY #30 tabs 06/03/22 ezetimibe 10 mg tablet 10 mg PO DAILY 90 days #90 tabs 06/06/22 irbesartan 150 1 tab PO DAILY #90 tabs 06/27/22 mg-hydrochlorothiazide 12.5 mg tablet furosemide 20 mg tablet 20 mg PO QAM 5 days #5 tabs 07/01/22 oxycodone 5 mg tablet 5 mg PO BID PRN pain #7 tabs 08/25/22 polyethylene glycol 3350 17 17 g PO BID #119 grams 08/25/22 gram/dose oral powder (Miralax) hydrocodone 5 mg-acetaminophen 325 1 tab PO DAILY PRN pain 30 days 08/27/22 mg tablet #30 tabs oxycodone 5 mg tablet 5 mg PO Q8H PRN pain #20 tabs 09/07/22 Allergies Allergy/AdvReac Type Severity Reaction Status Date / Time codeine [CODEINE] Allergy Unknown EXACERBATES Verified 09/07/22 09:53 HERNIA IN ESOPHAGUS? Sulfa (Sulfonamide Allergy Unknown rash Verified 09/07/22 09:53 Antibiotics) tramadol AdvReac Intermediate Nausea Verified 09/07/22 09:54 amoxicillin AdvReac Unknown Yeast Verified 09/07/22 09:53 infection rosuvastatin [Crestor] AdvReac Unknown Worsened Verified 09/07/22 09:53 PMR Codeine Phosphate Allergy Unknown unknown Uncoded 05/07/22 13:19 Clotrimazole-Betamethasone AdvReac Unknown Red Uncoded 05/07/22 13:19 blotches on skin Review of Systems Review of Systems: All other systems are reviewed and are negative Constitutional: Reports as per HPI and Reports no additional constitutional complaints Eyes: Reports as per HPI and Reports no additional eye complaints Reports system reviewed and no additional complaints, except as documented Cardiovascular: Reports as per HPI and Reports no additional cardiovascular complaints Respiratory: Reports as per HPI and Reports no additional respiratory complaints Gastrointestinal: Reports as per HPI and Reports no additional gastrointestinal complaints Genitourinary: Reports no additional female genitourinary complaints Musculoskeletal: Reports no additional musculoskeletal complaints Skin/Breast: Reports system reviewed and no additional complaints, except as docu Psychiatric: Reports no additional psychiatric complaints Endocrine: Reports no additional endocrine complaints Hematologic/Lymphatic: Reports no additional hematologic/lymphatic complaints Allergic/Immunologic: Reports no additional allergic/immunologic complaints Reports system reviewed and no additional complaints, except as documented and Reports Abnormal speech present PMFSH Past Medical History Medical History CKD (chronic kidney disease) HTN (hypertension) Polymyalgia rheumatica Surgical History History of breast lump/mass excision S/P tonsillectomy and adenoidectomy Family History Family History Father CVD (cardiovascular disease) Mother Cancer Social History Social History Housing: [facility] Alcohol intake: current Alcohol intake frequency: holidays/special occasions only Alcohol type: beer, wine and hard liquor Patient Tobacco Use Status: Former Tobacco user Quit Date: quit 4-5 years ago e-Cigarette/Vaping Use: Never Used Second Hand Smoke Exposure: No Advance Directives: No Current occupational status: retired Cognitive needs: No Hearing needs: No Vision needs: No Physical Exam ED Vital Signs: Vital Signs - 24 hr 09/07/22 09:54 Temperature 97.6 F Pulse Rate 81 Respiratory Rate 18 Blood Pressure 147/91 H Pulse Oximetry 99 Oxygen Delivery Method Room Air BMI result Body Mass Index 33.3 Vital signs have been reviewed as appeared to be correct. Blood pressure normal. Heart rate normal. Respiration rate normal. Temperature normal. Oxygen saturation normal. Appearance: Alert. Oriented X3. No acute distress. Head: Normal external exam. Normocephalic. Atraumatic. No Kamara signs noted. No raccoon eyes noted Eyes: PERRLA. EOMI. Conjunctiva and sclera normal. Eyelids normal. ENT: TM's Normal. Pharynx normal. Uvula midline. Moist mucous membranes. No trismus noted. No drooling noted. No muffled voice noted. Neck: Normal inspection. Neck supple. FROM. No adenopathy. Thyroid Normal. No meningeal signs. No neck mass noted. CVS: Normal heart rate and rhythm. Heart sound normal. No murmurs noted. Pulses normal throughout. Respiratory: No respiratory distress. Painless inspiration. Breath sounds normal. No wheezes/rales/rhonchi noted. Chest S tender to touch on the right side of the ribs.. No accessory muscle usage noted or decreased air movement noted. Abdomen: Soft and nontender. Bowel sounds normal in all 4 quadrants. No distention noted. No organomegaly noted. No visible injury noted. Back: No CVA tenderness. Full range of motion noted. Skin: Skin warm and dry. Normal skin color. Normal skin turgor. No rashes/lesions/lacerations noted. Extremities: No lower extremity edema. Extremities exhibit normal range of motion. Extremities nontender. Neuro: Oriented X 3. Cranial nerve exam: II-XII are grossly intact No motor deficit. No sensory deficit. Reflexes normal. Course Course Course Narrative: Right-sided chest wall pain due to rib fracture will prescribe oxycodone to help with the pain and incentive spirometry for pulmonary exercising. No sign of CHF will discharge to follow-up with PCP. Medical Decision Making Differential Diagnosis Differential Diagnoses: The differential diagnosis associated with the presentation includes (ACS, CHF, electrolyte abnormalities, severe anemia, chest wall pain.) Admission/Observation Consideration of admission/observation: Escalation of care including admission/observation considered Lab Data MDM Lab Attestation statement: I reviewed the patient's lab results. 09/07/22 11:04 09/07/22 11:04 Labs: Lab Results 09/07/22 09/07/22 09/07/22 Range/Units 11:04 11:04 11:04 WBC 12.8 H (4.8-10.8) X10*3/uL RBC 4.04 L (4.20-5.50) X10*6/uL Hgb 11.9 L (12.0-16.0) g/dl Hct 37.8 (37.0-47.0) % MCV 93.6 (80.0-98.0) fL MCH 29.5 (27.0-33.0) pg MCHC 31.5 (31.0-35.0) g/dl RDW 13.3 (11.0-16.0) % Plt Count 385 (160-400) X10*3/uL MPV 9.3 L (9.4-12.3) fL Immature Gran % (Auto) 0.5 H (0.0-0.4) % Neut % (Auto) 71.7 (45-73) % Lymph % (Auto) 18.2 L (20-40) % [place] % (Auto) 7.1 (2-11) % Eos % (Auto) 2.0 (0-4) % Baso % (Auto) 0.5 (0-2) % Lymph # (Auto) 2.3 (1.2-4.9) X10*3/uL [place] # (Auto) 0.9 (0.1-1.2) X10*3/uL Eos # (Auto) 0.3 (0.0-0.4) X10*3/uL Baso # (Auto) 0.1 (0.0-0.2) X10*3/uL Abs Immat Gran (auto) 0.06 H (0.00-0.03) X10*3/uL Absolute Neuts (auto) 9.2 H (2.0-8.3) x10*3/uL Absolute Nucleated RBC 0.000 (0.0-0.012) X10*3/uL Nucleated RBC % (auto) 0.0 (0.0-0.2) /100WBC Sodium 143 (135-145) mmol/L Potassium 4.5 (3.3-5.1) mmol/L Chloride 109 H (96-108) mmol/L Carbon Dioxide 21 L (22-29) mmol/L Anion Gap 18 (12-20) BUN 24 H (9-16) mg/dL Creatinine 1.94 H (0.5-1.4) mg/dL Estim Creat Clear Calc 22.7 Estimated GFR 24 Random Glucose 101 (60-115) mg/dL Calcium 9.5 (8.4-10.2) mg/dL Total Bilirubin 1.1 H (0.0-1.0) mg/dL Direct Bilirubin 0.4 (0.0-0.5) mg/dL AST 13 (5-31) U/L ALT 9 (0-31) U/L Alkaline Phosphatase 119 H (39-117) U/L Troponin I High Sens 6.3 (<3.5-17.0) ng/L B-Natriuretic Peptide (<100) pg/mL Total Protein 6.5 (6.5-8.0) g/dL Albumin 3.6 (3.5-5.0) g/dL Lipase 61 (8-78) U/L 09/07/22 Range/Units 11:04 WBC (4.8-10.8) X10*3/uL RBC (4.20-5.50) X10*6/uL Hgb (12.0-16.0) g/dl Hct (37.0-47.0) % MCV (80.0-98.0) fL MCH (27.0-33.0) pg MCHC (31.0-35.0) g/dl RDW (11.0-16.0) % Plt Count (160-400) X10*3/uL MPV (9.4-12.3) fL Immature Gran % (Auto) (0.0-0.4) % Neut % (Auto) (45-73) % Lymph % (Auto) (20-40) % [place] % (Auto) (2-11) % Eos % (Auto) (0-4) % Baso % (Auto) (0-2) % Lymph # (Auto) (1.2-4.9) X10*3/uL [place] # (Auto) (0.1-1.2) X10*3/uL Eos # (Auto) (0.0-0.4) X10*3/uL Baso # (Auto) (0.0-0.2) X10*3/uL Abs Immat Gran (auto) (0.00-0.03) X10*3/uL Absolute Neuts (auto) (2.0-8.3) x10*3/uL Absolute Nucleated RBC (0.0-0.012) X10*3/uL Nucleated RBC % (auto) (0.0-0.2) /100WBC Sodium (135-145) mmol/L Potassium (3.3-5.1) mmol/L Chloride (96-108) mmol/L Carbon Dioxide (22-29) mmol/L Anion Gap (12-20) BUN (9-16) mg/dL Creatinine (0.5-1.4) mg/dL Estim Creat Clear Calc Estimated GFR Random Glucose (60-115) mg/dL Calcium (8.4-10.2) mg/dL Total Bilirubin (0.0-1.0) mg/dL Direct Bilirubin (0.0-0.5) mg/dL AST (5-31) U/L ALT (0-31) U/L Alkaline Phosphatase (39-117) U/L Troponin I High Sens (<3.5-17.0) ng/L B-Natriuretic Peptide 62 (<100) pg/mL Total Protein (6.5-8.0) g/dL Albumin (3.5-5.0) g/dL Lipase (8-78) U/L Independent Interpretation I performed an independent interpretation of an: Plain X-Ray (Chest: No acute intrathoracic pathology.) Radiology Impression Discussion of test interpretation with radiology: I have reviewed the radiologist's reading. Discharge Plan Discharge Clinical Impression: Fracture, ribs, Chest wall pain Patient Disposition: Home, Self-Care Instructions: Rib Fracture (ED) Prescriptions: New oxycodone 5 mg tablet 5 mg PO Q8H PRN (Reason: pain) Qty: 20 0RF Rx Instructions: Partial Fill upon patient request. No Action alprazolam 0.5 mg tablet 0.5 mg PO BID PRN (Reason: anxiety) 30 Days Qty: 60 2RF irbesartan-hydrochlorothiazide 150-12.5 mg tablet 1 tab PO DAILY 30 Days Qty: 90 0RF alprazolam 0.5 mg tablet 0.5 mg PO BID 30 Days Qty: 60 0RF prednisone 5 mg tablet 5 mg PO DAILY Qty: 30 4RF ezetimibe 10 mg tablet 10 mg PO DAILY 90 Days Qty: 90 4RF irbesartan-hydrochlorothiazide 150-12.5 mg tablet 1 tab PO DAILY Qty: 90 0RF furosemide 20 mg tablet 20 mg PO QAM 5 Days Qty: 5 0RF hydrocodone-acetaminophen 5-325 mg tablet 1 tab PO DAILY PRN (Reason: pain) 30 Days Qty: 30 0RF oxycodone 5 mg tablet 5 mg PO BID PRN (Reason: pain) Qty: 7 0RF Rx Instructions: Partial Fill upon patient request. polyethylene glycol 3350 [Miralax] 17 gram/dose powder 17 g PO BID Qty: 119 0RF ezetimibe 10 mg tablet 10 mg PO DAILY timolol maleate 0.5 % drops 0 drp ophthalmic (eye) brimonidine 0.2 % drops 1 drp ophthalmic (eye) Q12H latanoprost 0.005 % drops 0 drp ophthalmic (eye) (DME) Knee brace Misc See Rx Instructions .Route Qty: 2 0RF Rx Instructions: Bilateral knee braces (hinged knee braces) aspirin [Talia Low Dose Aspirin] 81 mg tablet,delayed release (DR/EC) 81 mg PO DAILY PreserVision AREDS-2 250-90-40-1 mg tablet,chewable 1 tab PO BID nystatin 100,000 unit/gram powder 1 appl topical DAILY Qty: 60 1RF Referrals: Seng Dalton, [employer] [Primary Care Provider] -
[2022-09-07 11:11] LABS: MANUAL DIFF FLAG NO
[2022-09-07 11:14] LABS: Basophils Absolute Auto 0.1 X10*3/uL (0.0-0.2); Basophils Percent Auto 0.5 % (0-2); Eosinophils Absolute Auto 0.3 X10*3/uL (0.0-0.4); Hematocrit 37.8 % (37.0-47.0); Hemoglobin 11.9 g/dl (12.0-16.0); Imm Gran Abs Auto 0.06 X10*3/uL (0.00-0.03); Imm Gran Pct Auto 0.5 % (0.0-0.4); Lymphocytes Absolute Auto 2.3 X10*3/uL (1.2-4.9); Lymphocytes Percent Auto 18.2 % (20-40); Mean Corpuscular HGB Conc 31.5 g/dl (31.0-35.0); Mean Corpuscular Hemoglobin 29.5 pg (27.0-33.0); Mean Corpuscular Volume 93.6 fL (80.0-98.0); Mean Platelet Volume 9.3 fL (9.4-12.3); Monocytes Absolute Auto 0.9 X10*3/uL (0.1-1.2); Monocytes Percent Auto 7.1 % (2-11); Neutrophils Absolute Auto 9.2 x10*3/uL (2.0-8.3); Neutrophils Percent Auto 71.7 % (45-73); Platelet Count 385 X10*3/uL (160-400); Red Blood Count 4.04 X10*6/uL (4.20-5.50); Red Cell Distribution Width 13.3 % (11.0-16.0); White Blood Count 12.8 X10*3/uL (4.8-10.8)
[2022-09-07 11:28] LABS: Alanine Aminotransferase 9 U/L (0-31); Albumin Level 3.6 g/dL (3.5-5.0); Alkaline Phosphatase 119 U/L (39-117); Anion Gap 18 (12-20); Aspartate Amino Transferase 13 U/L (5-31); Bilirubin Direct 0.4 mg/dL (0.0-0.5); Bilirubin Total 1.1 mg/dL (0.0-1.0); Blood Urea Nitrogen 24 mg/dL (9-16); Calcium 9.5 mg/dL (8.4-10.2); Carbon Dioxide 21 mmol/L (22-29); Chloride 109 mmol/L (96-108); Creatinine Clr Calc Pharmacy 22.7; Estimated Glomerular Filt Rate 24; Glucose Random 101 mg/dL (60-115); Lipase 61 U/L (8-78); Potassium 4.5 mmol/L (3.3-5.1); Sodium 143 mmol/L (135-145); Total Protein 6.5 g/dL (6.5-8.0)
[2022-09-07 11:34] LABS: Troponin-I High Sensitivity 6.3 ng/L (<3.5-17.0)
[2022-09-07 11:41] LABS: B Type Natriuretic Peptide 62 pg/mL (<100)
[2022-09-07] MEDS: oxyCODONE HCl Immed Release 5 MG TABLET PO (15:26)
[2022-09-07 15:31] VITALS: BP 151/68; PULSE 91; RESP 18; O2SAT 96
== END 2022-09-07 15:37 | disposition home or self-care (01) ==
PROVIDERS: Emergency Provider Emergency Medicine; PCP Nurse Practitioner Family
DX: R06.02 Shortness of breath (principal); R60.0 Localized edema; Z79.899 Other long term (current) drug therapy
CPT/HCPCS: 36415; 71045; 80048; 80076; 83690; 83880; 84484; 85025; 93005; 99284

== ENCOUNTER 2022-11-20 11:01 | Inpatient (IN) | payer MEDICARE, SELFPAY ==
[2022-11-20] VITALS (9 sets, daily range): BP systolic 101–159; BP diastolic 35–51; PULSE 73–97; RESP 15–21; TEMP 36.6–36.7; O2SAT 93–100; BMI 33.3
--- NOTE | ~2022-11-20 | CT_ITS ---
EXAMINATION: CT CHEST WITHOUT CONTRAST CLINICAL INFORMATION: Cough, fevers and white count. COMPARISON: None available. TECHNIQUE: Multidetector volumetric CT imaging of the chest was done. Axial MIP volume rendering provided. Sagittal and coronal reformatted images were obtained. This CT examination was performed using dose optimization techniques as appropriate, variously including the following: *Automated exposure control *Adjustment of mA and/or kV according to patient size (this includes techniques or standardized protocols for targeted exams where dose is matched to indication/reason for exam; i.e. extremities or head) *Use of iterative reconstruction technique DLP: 410 mGy-cm FINDINGS: PIANO TECHNICIAN: Unremarkable chest exam LUNGS: Lungs are well-expanded with bilateral apical scarring slightly more prominent in the right lung apex. There is mild bronchiectasis in both upper lobes and both lower lobes with peribronchial thickening and parenchymal scarring in both lower lobes. No pneumonic consolidation mass seen. There is a 3 minute subpleural nodule right lower lobe axial image 263/5. There is bilateral subpleural reticular thickening likely sequelae of chronic changes. MEDIASTINUM: The thyroid lobes are symmetrical and normal. Central trachea and the bronchi widely patent. Heart size and the great vessels are normal caliber. No pericardial effusion seen. No abnormal size mediastinal or hilar lymph nodes seen. CORONARY ARTERY CALCIFICATION: Moderate coronary artery calcifications are present. PLEURA: There is no pleural effusion. No pleural mass or thickening. AXILLA: No lymphadenopathy. UPPER ABDOMEN: Visualized liver, spleen, pancreas and bilateral adrenal glands are unremarkable. OSSEOUS STRUCTURES: There is T12 compression fracture unchanged to CT chest 08/24/2022. There are degenerative disc changes and vacuum disc phenomena at several mid and lower dorsal spine disc levels. There are healing right posterior 10th and 11th ribs CT/CT chest wo IV con IMPRESSION: There is bilateral apical pleural thickening and parenchymal scarring slightly progressed in the right lung apex since the last exam. Small subpleural nodule right lower lobe pleural-based is stable. Atelectatic changes in the right middle lobe and lingula as well as chronic scarring in both lung bases is stable and unchanged. Chronic T12 compression fracture stable. Healing fractures right posterior 10th and 11th ribs are stable. Fleischner guidelines were followed.
--- NOTE | ~2022-11-20 | XR_ITS ---
EXAMINATION: XR CHEST CLINICAL INFORMATION: Productive cough. COMPARISON: 09/07/2022 chest radiograph. TECHNIQUE: 2 views of the chest were obtained. FINDINGS: No significant abnormality is noted involving the heart, lungs, mediastinum, bony thorax or soft tissues. XR/XR chest 2V IMPRESSION: No acute cardiopulmonary process.
--- NOTE | 2022-11-20 11:13 | ED.SOB ---
HPI - SOB/Dyspnea General Chief Complaint: Upper Respiratory Symptoms Stated Complaint: Diff breathing Time Seen by Provider: 11/20/22 11:40 Source: patient Mode of arrival: ambulatory Limitations: no limitations History of Present Illness HPI Narrative: 87 y female with hx of HTN, PMR on daily prednisone 5mg, anxiety, CKD who notes about a month ago she had a cough and it went away but this past week she has very much more short of breath with cough and sputum production but no fevers. She has not traveled or had sick contacts. She reports no smoking or known lung disease. NO treatment by a doctor in the last week. MD elicited complaint: shortness of breath and cough Onset (ago): week(s) (1) Context: recent illness Timing: constant Severity: moderate Exacerbating factors: exertion and coughing Relieving factors: rest Associated symptoms: cough and sputum production Treatment prior to arrival: none Related Data Home Medications Medication Instructions Recorded Confirmed brimonidine 0.2 % eye drops 1 drp ophthalmic (eye) Q12H 08/27/21 01/08/22 latanoprost 0.005 % eye drops 0 drp ophthalmic (eye) 08/27/21 01/08/22 timolol maleate 0.5 % eye drops 0 drp ophthalmic (eye) 08/27/21 01/08/22 aspirin 81 mg tablet,delayed 81 mg PO DAILY 01/08/22 01/08/22 release (Talia Low Dose Aspirin) vit C 250 mg-E 90 mg-zinc 40 1 tab PO BID 01/08/22 01/08/22 mg-copper 1 [id number] chew tablet (PreserVision AREDS-2) Previous Rx's Medication Instructions Recorded Knee brace #2 ea 08/27/21 ezetimibe 10 mg tablet 10 mg PO DAILY 90 days #90 tabs 06/06/22 polyethylene glycol 3350 17 17 g PO BID #119 grams 08/25/22 gram/dose oral powder (Miralax) hydrocodone 5 mg-acetaminophen 325 1 tab PO DAILY PRN pain 30 days 08/27/22 mg tablet #30 tabs oxycodone 5 mg tablet 5 mg PO Q8H PRN pain #20 tabs 09/07/22 alprazolam 0.5 mg tablet 0.5 mg PO BID 30 days #60 tabs 08/03/23 irbesartan 150 1 tab PO DAILY #90 tabs 11/07/22 mg-hydrochlorothiazide 12.5 mg tablet nystatin 100,000 unit/gram topical 1 appl topical DAILY #60 grams 11/07/22 powder prednisone 5 mg tablet 5 mg PO DAILY #90 tabs 11/07/22 Allergies Allergy/AdvReac Type Severity Reaction Status Date / Time codeine [CODEINE] Allergy Unknown EXACERBATES Verified 09/07/22 09:53 HERNIA IN ESOPHAGUS? Sulfa (Sulfonamide Allergy Unknown rash Verified 09/07/22 09:53 Antibiotics) tramadol AdvReac Intermediate Nausea Verified 09/07/22 09:54 amoxicillin AdvReac Unknown Yeast Verified 09/07/22 09:53 infection rosuvastatin [Crestor] AdvReac Unknown Worsened Verified 09/07/22 09:53 PMR Codeine Phosphate Allergy Unknown unknown Uncoded 05/07/22 13:19 Clotrimazole-Betamethasone AdvReac Unknown Red Uncoded 05/07/22 13:19 blotches on skin Review of Systems Review of Systems: Constitutional : No Fever, No Chills, pos fatigue, pos malaise ENT/Mouth : No Hoarseness, No sore throat, No Rhinorrhea Eyes: No Redness, No Discharge, No Vision Changes Cardiovascular : No Chest Pain, positive SOB, positive Dyspnea on Exertion, No Edema Respiratory : positive Cough, pos Sputum, positive Wheezing, Gastrointestinal : No Nausea, No Vomiting, No Diarrhea, No abdominal Pain Genitourinary : No Dysuria, No Hematuria Musculoskeletal : No joint pain, No Myalgias Skin : No rash Neuro : No Weakness, No Numbness, No Headache Psych : No anxiety, depression Heme/Lymph: No Bruising, No Bleeding Endocrine : No Polyuria, No Polydipsia All other systems reviewed and are negative FOR[facility]LY [facility] Past Medical History Attestation statement: The following information was validated with the patient. Medical History CKD (chronic kidney disease) HTN (hypertension) Polymyalgia rheumatica Surgical History History of breast lump/mass excision S/P tonsillectomy and adenoidectomy Family History Family History Father CVD (cardiovascular disease) Mother Cancer Social History Social History Housing: Condominium Alcohol intake: current Alcohol intake frequency: holidays/special occasions only Alcohol type: beer, wine and hard liquor Patient Tobacco Use Status: Former Tobacco user Quit Date: quit 4-5 years ago e-Cigarette/Vaping Use: Never Used Second Hand Smoke Exposure: No Advance Directives: No Advance Directives Information Provided: Yes Current occupational status: retired Cognitive needs: No Hearing needs: No Vision needs: No Physical Exam Vital Signs: Vital Signs: Last Vital Signs Temp 97.8 F 11/20/22 15:47 Pulse 87 11/20/22 15:47 Resp 21 H 11/20/22 15:47 BP 121/51 L 11/20/22 15:47 Pulse Ox 100 11/20/22 15:47 O2 Del Method Nasal Cannula 11/20/22 15:47 O2 Flow Rate 2 11/20/22 15:47 BMI result Body Mass Index 33.3 Appearance: Alert. Oriented X3. No acute distress. Eyes: Pupils equal, round and reactive to light. ENT: Pharynx normal. Neck: Normal inspection. Neck supple. CVS: Normal heart rate and rhythm. Pulses normal. Respiratory: Mild respiratory distress - tachypnea. Breath sounds diminished R side I also hear end exp wheezes mild Abdomen: Soft and non-tender. Skin: Skin warm and dry. Normal skin color. Normal skin turgor. Extremities: No lower extremity edema. No calf ttp Neuro: Oriented X 3. No motor deficit. No sensory deficit. Course Course Course Narrative: RME: 87yo F w/PMHx HTN, Polymyalgias rheumatica, c/o productive cough x 1 months off and on. Feels like she cant catch her breath. denies CP, LE edema, fever Lungs CTA, coughing noted when talking, no pitting edema EKG, Labs, CXR, viral testing ordered Full HPI, ROS and PE to be performed by primary ED provider. Reevaluation(s) Reevaluation #1: CT scan ordered given concern for pneumonia Medications Administered Discontinued Medications Generic Name Dose Route Start Last Admin Trade Name Freq PRN Reason Stop Dose Admin Albuterol/Ipratropium 3 ml 11/20/22 11:59 11/20/22 12:19 Albuterol/Iprat 2.5/0.5mg 3 Ml Ampul.Neb INHALE 11/20/22 12:00 3 ml ONCE ONE Administration Ceftriaxone Sodium 2 gm/ 50 mls @ 100 mls/hr 11/20/22 11:59 11/20/22 12:37 Sodium Chloride IV 11/20/22 12:28 100 mls/hr ONCE ONE Administration Sodium Chloride 500 mls @ 500 mls/hr 11/20/22 12:00 11/20/22 12:39 Ns IV 11/20/22 12:59 500 mls/hr .Q1H DAVE Administration Azithromycin 500 mg/ Sodium 250 mls @ 125 mls/hr 11/20/22 14:52 11/20/22 16:39 Chloride IV 11/20/22 16:51 125 mls/hr ONCE ONE Administration Medical Decision Making Medical Decision Making MDM Narrative: 87 y female with hx of HTN, PMR on daily prednisone 5mg, anxiety, CKD here with c/o worsening URI symptoms and productive cough x 1 week - she is on chronic prednisone 5mg daily. At this time she has wheezes noted and decreased lung sounds she has no pitting edema. She has elevated WBC count at this time I have ordered basic labs, CXR for pneumonia, duoneb and started ceftriaxone for clinical pneumonia after ordered lactic acid and cultures. Given RR and WBC count may need admission pending improvement post duoneb. -I received sign-out from Dr. Mcclain -CT scan does not show pneumonia. Patient has chronic scarring. --patient remains tachypneic, between 25-30. Patient was discussed with EULOGIO Godoy, patient admitted Differential Diagnosis Differential Diagnoses: The differential diagnosis associated with the presentation includes pneumonia, bronchitis, COVID Admission/Observation Consideration of admission/observation: Escalation of care including admission/observation considered given tachypnea pending CT scan may need admission Consult Healthcare Provider Management of the patient was discussed with: Hospitalist brief discussion pending final CT read Lab Data [facility] Lab Attestation statement: I reviewed the patient's lab results. 11/20/22 11:29 11/20/22 11:29 Labs: Lab Results 11/20/22 11/20/22 11/20/22 Range/Units 11:29 11:29 11:29 WBC 20.2 H (4.8-10.8) X10*3/uL RBC 3.86 L (4.20-5.50) X10*6/uL Hgb 11.3 L (12.0-16.0) g/dl Hct 34.8 L (37.0-47.0) % MCV 90.2 (80.0-98.0) fL MCH 29.3 (27.0-33.0) pg MCHC 32.5 (31.0-35.0) g/dl RDW 13.9 (11.0-16.0) % Plt Count 468 H (160-400) X10*3/uL MPV 9.5 (9.4-12.3) fL Immature Gran % (Auto) 0.6 H (0.0-0.4) % Neut % (Auto) 80.3 H (45-73) % Lymph % (Auto) 11.2 L (20-40) % Rains % (Auto) 7.1 (2-11) % Eos % (Auto) 0.6 (0-4) % Baso % (Auto) 0.2 (0-2) % Lymph # (Auto) 2.3 (1.2-4.9) X10*3/uL Rains # (Auto) 1.4 H (0.1-1.2) X10*3/uL Eos # (Auto) 0.1 (0.0-0.4) X10*3/uL Baso # (Auto) 0.1 (0.0-0.2) X10*3/uL Abs Immat Gran (auto) 0.13 H (0.00-0.03) X10*3/uL Absolute Neuts (auto) 16.2 H (2.0-8.3) x10*3/uL Absolute Nucleated RBC 0.000 (0.0-0.012) X10*3/uL Nucleated RBC % (auto) 0.0 (0.0-0.2) /100WBC PT (11.1-13.3) SEC INR (0.9-1.1) Sodium (135-145) mmol/L Potassium (3.3-5.1) mmol/L Chloride (96-108) mmol/L Carbon Dioxide (22-29) mmol/L Anion Gap (12-20) BUN (9-16) mg/dL Creatinine (0.5-1.4) mg/dL Estim Creat Clear Calc Estimated GFR Random Glucose (60-115) mg/dL Lactic Acid (0.5-2.0) mmol/L Calcium (8.4-10.2) mg/dL Total Bilirubin (0.0-1.0) mg/dL Direct Bilirubin (0.0-0.5) mg/dL AST (5-31) U/L ALT (0-31) U/L Alkaline Phosphatase (39-117) U/L Troponin I High Sens 9.4 (<3.5-17.0) ng/L B-Natriuretic Peptide (<100) pg/mL Total Protein (6.5-8.0) g/dL Albumin (3.5-5.0) g/dL Urine Color Urine Appearance Urine pH (5.0-9.0) Ur Specific [place] (1.005-1.025) Urine Protein (Neg-Trace) mg/dL Urine Glucose (UA) (Negative) mg/dL Urine Ketones (Negative) mg/dL Urine Blood (Negative) Urine Nitrite (Negative) Ur Leukocyte Esterase (Negative) Urine RBC (0-2) /HPF Urine WBC (0-5) /HPF Ur Squamous Epith Cells (0-2) /HPF Urine Bacteria (None Seen) Hyaline Casts (0-2) /LPF COVID-19 (ANIA) (Negative) COVID-19 Clin Com Influenza Type A (TSEVE) Negative (Negative) Influenza Type B (STEVE) Negative (Negative) Influenza A & B Note See Note 11/20/22 11/20/22 11/20/22 Range/Units 11:29 11:29 11:29 WBC (4.8-10.8) X10*3/uL RBC (4.20-5.50) X10*6/uL Hgb (12.0-16.0) g/dl Hct (37.0-47.0) % MCV (80.0-98.0) fL MCH (27.0-33.0) pg MCHC (31.0-35.0) g/dl RDW (11.0-16.0) % Plt Count (160-400) X10*3/uL MPV (9.4-12.3) fL Immature Gran % (Auto) (0.0-0.4) % Neut % (Auto) (45-73) % Lymph % (Auto) (20-40) % Rains % (Auto) (2-11) % Eos % (Auto) (0-4) % Baso % (Auto) (0-2) % Lymph # (Auto) (1.2-4.9) X10*3/uL Rains # (Auto) (0.1-1.2) X10*3/uL Eos # (Auto) (0.0-0.4) X10*3/uL Baso # (Auto) (0.0-0.2) X10*3/uL Abs Immat Gran (auto) (0.00-0.03) X10*3/uL Absolute Neuts (auto) (2.0-8.3) x10*3/uL Absolute Nucleated RBC (0.0-0.012) X10*3/uL Nucleated RBC % (auto) (0.0-0.2) /100WBC PT 12.8 (11.1-13.3) SEC INR 1.1 (0.9-1.1) Sodium 137 (135-145) mmol/L Potassium 4.3 (3.3-5.1) mmol/L Chloride 105 (96-108) mmol/L Carbon Dioxide 24 (22-29) mmol/L Anion Gap 12 (12-20) BUN 46 H (9-16) mg/dL Creatinine 2.16 H (0.5-1.4) mg/dL Estim Creat Clear Calc 20.4 Estimated GFR 22 Random Glucose 107 (60-115) mg/dL Lactic Acid (0.5-2.0) mmol/L Calcium 9.5 (8.4-10.2) mg/dL Total Bilirubin 0.4 (0.0-1.0) mg/dL Direct Bilirubin 0.2 (0.0-0.5) mg/dL AST 43 H (5-31) U/L ALT 45 H (0-31) U/L Alkaline Phosphatase 129 H (39-117) U/L Troponin I High Sens (<3.5-17.0) ng/L B-Natriuretic Peptide 50 (<100) pg/mL Total Protein 7.3 (6.5-8.0) g/dL Albumin 3.5 (3.5-5.0) g/dL Urine Color Urine Appearance Urine pH (5.0-9.0) Ur Specific [place] (1.005-1.025) Urine Protein (Neg-Trace) mg/dL Urine Glucose (UA) (Negative) mg/dL Urine Ketones (Negative) mg/dL Urine Blood (Negative) Urine Nitrite (Negative) Ur Leukocyte Esterase (Negative) Urine RBC (0-2) /HPF Urine WBC (0-5) /HPF Ur Squamous Epith Cells (0-2) /HPF Urine Bacteria (None Seen) Hyaline Casts (0-2) /LPF COVID-19 (ANIA) (Negative) COVID-19 Clin Com Influenza Type A (STEVE) (Negative) Influenza Type B (STEVE) (Negative) Influenza A & B Note 11/20/22 11/20/22 11/20/22 Range/Units 11:29 12:31 15:54 WBC (4.8-10.8) X10*3/uL RBC (4.20-5.50) X10*6/uL Hgb (12.0-16.0) g/dl Hct (37.0-47.0) % MCV (80.0-98.0) fL MCH (27.0-33.0) pg MCHC (31.0-35.0) g/dl RDW (11.0-16.0) % Plt Count (160-400) X10*3/uL MPV (9.4-12.3) fL Immature Gran % (Auto) (0.0-0.4) % Neut % (Auto) (45-73) % Lymph % (Auto) (20-40) % Rains % (Auto) (2-11) % Eos % (Auto) (0-4) % Baso % (Auto) (0-2) % Lymph # (Auto) (1.2-4.9) X10*3/uL Rains # (Auto) (0.1-1.2) X10*3/uL Eos # (Auto) (0.0-0.4) X10*3/uL Baso # (Auto) (0.0-0.2) X10*3/uL Abs Immat Gran (auto) (0.00-0.03) X10*3/uL Absolute Neuts (auto) (2.0-8.3) x10*3/uL Absolute Nucleated RBC (0.0-0.012) X10*3/uL Nucleated RBC % (auto) (0.0-0.2) /100WBC PT (11.1-13.3) SEC INR (0.9-1.1) Sodium (135-145) mmol/L Potassium (3.3-5.1) mmol/L Chloride (96-108) mmol/L Carbon Dioxide (22-29) mmol/L Anion Gap (12-20) BUN (9-16) mg/dL Creatinine (0.5-1.4) mg/dL Estim Creat Clear Calc Estimated GFR Random Glucose (60-115) mg/dL Lactic Acid 1.1 (0.5-2.0) mmol/L Calcium (8.4-10.2) mg/dL Total Bilirubin (0.0-1.0) mg/dL Direct Bilirubin (0.0-0.5) mg/dL AST (5-31) U/L ALT (0-31) U/L Alkaline Phosphatase (39-117) U/L Troponin I High Sens (<3.5-17.0) ng/L B-Natriuretic Peptide (<100) pg/mL Total Protein (6.5-8.0) g/dL Albumin (3.5-5.0) g/dL Urine Color Yellow Urine Appearance Cloudy Urine pH 5.5 (5.0-9.0) Ur Specific [place] 1.010 (1.005-1.025) Urine Protein Trace (Neg-Trace) mg/dL Urine Glucose (UA) Negative (Negative) mg/dL Urine Ketones Negative (Negative) mg/dL Urine Blood Small (1+) H (Negative) Urine Nitrite Negative (Negative) Ur Leukocyte Esterase Small (1+) H (Negative) Urine RBC >20 H (0-2) /HPF Urine WBC 6-10 H (0-5) /HPF Ur Squamous Epith Cells >20 (0-2) /HPF Urine Bacteria 4+ (None Seen) Hyaline Casts 0-2 (0-2) /LPF COVID-19 (ANIA) Negative (Negative) COVID-19 Clin Com See Note Influenza Type A (STEVE) (Negative) Influenza Type B (STEVE) (Negative) Influenza A & B Note Independent Interpretation I performed an independent interpretation of an: EKG and Plain X-Ray (no pneumonia seen) Interpretation: Rate: 88 Rhythm: NSR [place]: left LVH Normal P waves. Normal NAVJOT. Normal QRS complex. ST T wave : nonspecific changes I and aVL, no OLIVIA qTC: normal prior studies: no acute ischemia The study has been interpreted contemporaneously by me. . Radiology Impression Discussion of test interpretation with radiology: I have reviewed the radiologist's reading. Critical Care Time Critical Care Time Critical Care Time: Yes Total Critical Care Time: 60 Attestation: I have personally provided critical care time. Time includes review of lab data, radiology results, discussion with consultants, and monitoring for potential decompensation. Intervention performed as documented. Discharge Plan Discharge Clinical Impression: Leukocytosis, Upper respiratory infection Patient Disposition: Admitted As Inpatient Prescriptions: No Action ezetimibe 10 mg tablet 10 mg PO DAILY 90 Days Qty: 90 4RF hydrocodone-acetaminophen 5-325 mg tablet 1 tab PO DAILY PRN (Reason: pain) 30 Days Qty: 30 0RF irbesartan-hydrochlorothiazide 150-12.5 mg tablet 1 tab PO DAILY Qty: 90 1RF nystatin 100,000 unit/gram powder 1 appl topical DAILY Qty: 60 1RF prednisone 5 mg tablet 5 mg PO DAILY Qty: 90 1RF alprazolam 0.5 mg tablet 0.5 mg PO BID 30 Days Qty: 60 0RF polyethylene glycol 3350 [Miralax] 17 gram/dose powder 17 g PO BID Qty: 119 0RF oxycodone 5 mg tablet 5 mg PO Q8H PRN (Reason: pain) Qty: 20 0RF Rx Instructions: Partial Fill upon patient request. timolol maleate 0.5 % drops 0 drp ophthalmic (eye) brimonidine 0.2 % drops 1 drp ophthalmic (eye) Q12H latanoprost 0.005 % drops 0 drp ophthalmic (eye) (DME) Knee brace Misc See Rx Instructions .Route Qty: 2 0RF Rx Instructions: Bilateral knee braces (hinged knee braces) aspirin [Talia Low Dose Aspirin] 81 mg tablet,delayed release (DR/EC) 81 mg PO DAILY PreserVision AREDS-2 250-90-40-1 mg tablet,chewable 1 tab PO BID
--- NOTE | 2022-11-20 11:16 | ECG_ITS ---
Test Reason : diff breathing Blood Pressure : / mmHG Vent. Rate : 088 BPM Atrial Rate : 088 BPM P-R Int : 138 ms QRS Dur : 084 ms QT Int : 342 ms P-R-T Axes : 039 -08 097 degrees QTc Int : 413 ms Sinus rhythm with marked sinus arrhythmia with occasional Premature ventricular complexes Left ventricular hypertrophy with repolarization abnormality ( R in aVL ) Abnormal ECG When compared with ECG of 07-SEP-2022 10:31, Premature ventricular complexes are now Present Premature atrial complexes are no longer Present Referred By: Christina Faust Electronically Signed By:TAVON BATES
[2022-11-20 11:34] LABS: MANUAL DIFF FLAG NO
[2022-11-20 11:44] LABS: Basophils Absolute Auto 0.1 X10*3/uL (0.0-0.2); Basophils Percent Auto 0.2 % (0-2); Eosinophils Absolute Auto 0.1 X10*3/uL (0.0-0.4); Eosinophils Percent Auto 0.6 % (0-4); Hematocrit 34.8 % (37.0-47.0); Hemoglobin 11.3 g/dl (12.0-16.0); Imm Gran Abs Auto 0.13 X10*3/uL (0.00-0.03); Imm Gran Pct Auto 0.6 % (0.0-0.4); Lymphocytes Absolute Auto 2.3 X10*3/uL (1.2-4.9); Lymphocytes Percent Auto 11.2 % (20-40); Mean Corpuscular HGB Conc 32.5 g/dl (31.0-35.0); Mean Corpuscular Hemoglobin 29.3 pg (27.0-33.0); Mean Corpuscular Volume 90.2 fL (80.0-98.0); Mean Platelet Volume 9.5 fL (9.4-12.3); Monocytes Absolute Auto 1.4 X10*3/uL (0.1-1.2); Monocytes Percent Auto 7.1 % (2-11); Neutrophils Absolute Auto 16.2 x10*3/uL (2.0-8.3); Neutrophils Percent Auto 80.3 % (45-73); Platelet Count 468 X10*3/uL (160-400); Red Blood Count 3.86 X10*6/uL (4.20-5.50); Red Cell Distribution Width 13.9 % (11.0-16.0); White Blood Count 20.2 X10*3/uL (4.8-10.8)
[2022-11-20 11:53] LABS: Alanine Aminotransferase 45 U/L (0-31); Albumin Level 3.5 g/dL (3.5-5.0); Alkaline Phosphatase 129 U/L (39-117); Anion Gap 12 (12-20); Aspartate Amino Transferase 43 U/L (5-31); Bilirubin Direct 0.2 mg/dL (0.0-0.5); Bilirubin Total 0.4 mg/dL (0.0-1.0); Blood Urea Nitrogen 46 mg/dL (9-16); Calcium 9.5 mg/dL (8.4-10.2); Carbon Dioxide 24 mmol/L (22-29); Chloride 105 mmol/L (96-108); Creatinine Clr Calc Pharmacy 20.4; Estimated Glomerular Filt Rate 22; Glucose Random 107 mg/dL (60-115); INTERNATIONAL NORM RATIO 1.1 (0.9-1.1); Potassium 4.3 mmol/L (3.3-5.1); Prothrombin Time 12.8 SEC (11.1-13.3); Sodium 137 mmol/L (135-145); Total Protein 7.3 g/dL (6.5-8.0)
[2022-11-20 11:54] LABS: COVID-19 Test Negative (Negative); IDNOW Serial# 08D9AD1C; IDNOW Serial# BCCEAD1C; Influenza A Negative (Negative); Influenza B2 Negative (Negative)
[2022-11-20 12:00] LABS: B Type Natriuretic Peptide 50 pg/mL (<100)
[2022-11-20 12:01] LABS: Troponin-I High Sensitivity 9.4 ng/L (<3.5-17.0)
[2022-11-20] MEDS: Albuterol/Iprat 2.5/0.5MG 3 ML AMPUL.NEB INHALE ×2 (12:19→20:19)
[2022-11-20] MEDS: cefTRIAXone sodium 2 GM in 0.9 % Sodium Chloride 50 ML IV (12:37)
[2022-11-20] MEDS: 0.9 % Sodium Chloride 500 ML IV (12:39)
[2022-11-20 12:49] LABS: Lactic Acid 1.1 mmol/L (0.5-2.0)
[2022-11-20 16:05] LABS: Appearance Urine Cloudy; Color Urine Yellow; Glucose Urine UA Negative (Negative); Leukocyte Esterase Urine Small (1+) (Negative); Nitrite Urine Negative (Negative); PH 5.5 (5.0-9.0); UMIC TRIGGER UACC YES; Urine Blood Small (1+) (Negative); Urine Ketones Negative (Negative); Urine Protein Trace mg/dL (Neg-Trace)
[2022-11-20 16:22] LABS: Bacteria Urine 4+ (None Seen); Hyaline Casts Urine 0-2 /LPF (0-2); RBC Urine >20 /HPF (0-2); Squamous Epithelial Cell Urine >20 /HPF (0-2); UACC Culture Trigger YES
[2022-11-20] MEDS: Azithromycin 500 MG in 0.9 % Sodium Chloride 250 ML 125 MG IV (16:39)
--- NOTE | 2022-11-20 16:39 | MHC.EDTECH ---
Placed purewick on patient. Gave patient a warm blanket.
--- NOTE | 2022-11-20 17:25 | PHA.MEDREC ---
Pharmacy Consult ? Medication Reconciliation Pharmacy has completed the medication reconciliation. Patient had list of prescripition medications. Reports she use 3 eye drops; briminidone and timolol BID in the left eye and latanoprost at bedtime in both eyes. Dawna Monge, PharmD
--- NOTE | 2022-11-20 17:52 | PM.IMHP ---
History of Present Illness Date of Service: 11/20/22 Attending physician on admission: Santos Meyers Chief Complaint: cough, sob 87-year-old female with history of CKD stage 4, hypertension, polymyalgia rheumatica on prednisone 5 mg daily presents to the ED for evaluation of productive cough and shortness of breath. She tells me that she has been experiencing dyspnea on exertion for several years but about 1 month ago shortness of breath acutely worsened with productive cough. Symptoms did get better but then recurred about 1 week ago. States her son is sick with similar symptoms. Has had sore throat, postnasal drip, productive cough, and again the shortness of breath both with exertion and at rest. Denies any fevers, chills, abdominal pain, nausea, vomiting, diarrhea, sinus pain, headaches, lightheadedness, chest pain. She has also been reporting some stress incontinence when coughing but otherwise denies any urinary symptoms. On arrival, vital stable the patient did develop a significant tachypnea to 30 and hypoxia into the high 80s. Has no known history of chronic lung disease. She has leukocytosis of 20.2, baseline is around 12 given chronic steroid use. Renal function baseline, electrolyte levels normal. LFTs slightly elevated with AST 43, ALT 45. Troponin 9.4, BNP 50. Urinalysis significant for 1+ leukocytes, 1+ blood, negative nitrites, positive urinary sediment and 4+ bacteria. She is negative for COVID-19, influenza. Full viral respiratory panel has been ordered and is pending. Chest x-ray negative for any acute cardiopulmonary process. Chest CT showing chronic T12 compression fracture which is stable as well as healing fractures of the right posterior 10th and 11th ribs which appear stable. There is also bilateral apical pleural thickening and parenchymal scarring as well as atelectatic changes in the right middle lobe and lingula as well as chronic scarring in both lung bases which appear stable. Of note, patient did have a fall onto the right side 3 months ago. In the ED has received 2 g IV Rocephin, 500 mg Zithromax, 500 mL IV NS, and DuoNeb. Given persistent respiratory distress, pt to be admitted for further management. Review of Systems Review of Systems: General: No fevers, malaise, unintentional weight loss HEENT: +sore throat, pnd. No nasal congestion, rhinorrhea, sinus pain, ear pain Cardiovascular: No chest pain, palpitations, or leg edema Respiratory: +shortness of breath, wheezing, cough GI: No abdominal pain, nausea, vomiting, diarrhea, constipation, melena, hematochezia : +stress incontinence. No dysuria, hematuria, increased urinary frequency, decreased urinary output MSK: No myalgia, back pain Neuro: No headaches, weakness, paresthesias Skin: No rashes or lesions [facility] Medical History CKD (chronic kidney disease) HTN (hypertension) Osteoarthritis Polymyalgia rheumatica Family History Father CVD (cardiovascular disease) Mother Cancer Surgical History History of breast lump/mass excision S/P tonsillectomy and adenoidectomy Social History Household Members: [facility] Do you presently have visiting nurse or other home services: Yes Alcohol intake: current Alcohol intake frequency: a few times a week Alcohol type: wine Patient Tobacco Use Status: Former Tobacco user Quit Date: quit 4-5 years ago Smoked in Last 30 Days: No e-Cigarette/Vaping Use: Never Used Patient Interested in Nicotine Replacement: No Patient Given Instructions on How to Stop Smoking: No Second Hand Smoke Exposure: No Use of substances other than those prescribed or required for medical reasons: No Currently Displaying Signs/Symptoms of Drug Intoxication Withdrawal: No Any prior treatment program specific to substance use: No Have you been hit, kicked, punched, or otherwise hurt by someone within the past year? If so, by whom?: No Do you feel safe in your current relationship?: No Current Relationship Is there a partner from a previous relationship who is making you feel unsafe now?: No Are you made to feel afraid or neglected: No Advance Directives: No Advance Directives Information Provided: Yes Advance Directives on File: Yes Do you have thoughts of harming others: None Do you have a plan to hurt others: No Plan Recently lost weight without trying: No Eating poorly because of decreased appetite: No Nutrition Risks: No Nutritional Risk Patient : No : No Poor oral hygiene: No service: No Current occupational status: retired Cognitive needs: No Hearing needs: No Vision needs: No Meds Allergies Allergy/AdvReac Type Severity Reaction Status Date / Time codeine [CODEINE] Allergy Unknown EXACERBATES Verified 09/07/22 09:53 HERNIA IN ESOPHAGUS? Sulfa (Sulfonamide Allergy Unknown rash Verified 09/07/22 09:53 Antibiotics) tramadol AdvReac Intermediate Nausea Verified 09/07/22 09:54 amoxicillin AdvReac Unknown Yeast Verified 09/07/22 09:53 infection rosuvastatin [Crestor] AdvReac Unknown Worsened Verified 09/07/22 09:53 PMR Codeine Phosphate Allergy Unknown unknown Uncoded 05/07/22 13:19 Clotrimazole-Betamethasone AdvReac Unknown Red Uncoded 05/07/22 13:19 blotches on skin Active Medications: Current Medications Acetaminophen (Acetaminophen 325 Mg Tablet) 650 mg PO Q6H PRN PRN Reason: Pain, Mild (Pain Scale 1-3) Hydrocodone Bitart/Acetaminophen (Hydrocodone Bit/Acetam 5/325 Tablet) 1 tab PO DAILY PRN PRN Reason: Pain, Severe (Pain Scale 7-10) Albuterol/Ipratropium (Albuterol/Iprat 2.5/0.5mg 3 Ml Ampul.Neb) 3 ml INHALE RQ4H WHILE AWAKE DAVE Alprazolam (Alprazolam 0.5 Mg Tablet) 0.5 mg PO BEDTIME DAVE Alprazolam (Alprazolam 0.5 Mg Tablet) 0.5 mg PO DAILY PRN PRN Reason: Anxiety Aspirin (Aspirin Enteric Coated 81 Mg Tablet.Dr) 81 mg PO DAILY DAVE Azithromycin (Azithromycin 500 Mg Tablet) 500 mg PO Q24H DAVE Stop: 11/22/22 12:31 Brimonidine Tartrate (Brimonidine Tartrate 0.2% Oph 5 Ml Bottle) 1 drop EYE-LEFT BID [facility] Docusate Sodium (Docusate Sodium 100 Mg Capsule) 100 mg PO DAILY PRN PRN Reason: Constipation Ezetimibe (Ezetimibe 10 Mg Tablet) 10 mg PO BEDTIME DAVE Enoxaparin Sodium (Enoxaparin Sodium 30 Mg/0.3 Ml Syringe) 30 mg SUBCUT Q24H DAVE Ceftriaxone Sodium 1 gm/ (Sodium Chloride) 50 mls @ 100 mls/hr IV Q24H [facility] Latanoprost (Latanoprost 0.005 % Ophth Katie 2.5 Ml Drops) 1 drop EYE-BOTH BEDTIME [facility] Methylprednisolone Sodium Succinate (Methylprednisolone Sod Succ 40 Mg/Ml Vial) 40 mg IVPUSH Q12H [facility] Non-Formulary Medication (Irbesartan-Hydrochlorothiazide) 1 tab PO DAILY [facility] Non-Formulary Medication (Vit C,E-Sj-Qmgqn-Lutein-Zeaxan [Preservision Areds-2]) 1 tab PO BID DAVE Ondansetron HCl (Ondansetron Hcl 4 Mg/2 Ml Vial) 4 mg IVPUSH Q8H PRN PRN Reason: Nausea and Vomiting Polyethylene Glycol (Polyethylene Glycol 3350 17 Gm Powd.Pack) 17 gm PO BID PRN PRN Reason: Constipation Sodium Chloride (0.9 % Sodium Chloride Flush 3 Ml Syringe) 3 ml IVFLUSH QSHIFT [facility] Timolol Maleate (Timolol Maleate 0.5 % Oph Katie 5 Ml Drbtl) 1 drop EYE-LEFT BID [facility] Home Medications Medication Instructions Recorded Confirmed Last Taken Type brimonidine 0.2 % eye drops 1 drp ophthalmic-Left BID 08/27/21 11/20/22 Unknown History latanoprost 0.005 % eye drops 1 drp ophthalmic (eye) BEDTIME 08/27/21 11/20/22 Unknown History timolol maleate 0.5 % eye drops 1 drp ophthalmic-Left BID 08/27/21 11/20/22 Unknown History aspirin 81 mg tablet,delayed 81 mg PO DAILY 01/08/22 11/20/22 Unknown History release (Talia Low Dose Aspirin) vit C 250 mg-E 90 mg-zinc 40 1 tab PO BID 01/08/22 11/20/22 Unknown History mg-copper 1 [id number]-[id number]-dlkytv chew tablet (PreserVision AREDS-2) alprazolam 0.5 mg tablet 0.5 mg PO BEDTIME 11/20/22 11/20/22 Unknown History alprazolam 0.5 mg tablet 0.5 mg PO DAILY PRN Anxiety 11/20/22 11/20/22 Unknown History ezetimibe 10 mg tablet 10 mg PO BEDTIME 11/20/22 11/20/22 Unknown History polyethylene glycol 3350 17 17 g PO BID PRN Constipation 11/20/22 11/20/22 Unknown History gram/dose oral powder (Miralax) prednisone 5 mg tablet 5 mg PO BEDTIME 11/20/22 11/20/22 Unknown History Physical Exam Vital Signs and Narrative: Vital Signs: Last Vital Signs Temp 97.8 F 11/20/22 15:47 Pulse 87 11/20/22 15:47 Resp 21 H 11/20/22 15:47 BP 121/51 L 11/20/22 15:47 Pulse Ox 100 11/20/22 15:47 O2 Del Method Nasal Cannula 11/20/22 15:47 O2 Flow Rate 2 11/20/22 15:47 BMI result Body Mass Index 33.3 Constitutional - Awake and Alert, No apparent distress Eyes - PERRLA, EOMI Cardiovascular - S1S2, RRR, No edema Respiratory - Normal lung expansion, increased respiratory effort with accessory muscle usage, rhonchi RUL/RML and scattered expiratory wheezing Gastrointestinal - NT / ND; +BS; No rebound or guarding Extremities - no calf tenderness bilaterally, no swelling Skin - Warm/Dry Neurological - Alert & oriented x3 Psychological - Appropriate affect Results Labs 11/20/22 11:29 11/20/22 11:29 Labs: Laboratory Results - last 24 hr 11/20/22 11/20/22 11/20/22 11:29 11:29 11:29 MCV 90.2 MCH 29.3 MCHC 32.5 RDW 13.9 Plt Count 468 H MPV 9.5 Immature Gran % (Auto) 0.6 H Neut % (Auto) 80.3 H Lymph % (Auto) 11.2 L [place] % (Auto) 7.1 Eos % (Auto) 0.6 Baso % (Auto) 0.2 Lymph # (Auto) 2.3 [place] # (Auto) 1.4 H Eos # (Auto) 0.1 Baso # (Auto) 0.1 Abs Immat Gran (auto) 0.13 H Absolute Neuts (auto) 16.2 H Absolute Nucleated RBC 0.000 Nucleated RBC % (auto) 0.0 PT 12.8 INR 1.1 Anion Gap Estim Creat Clear Calc Estimated GFR Random Glucose Lactic Acid Calcium Total Bilirubin Direct Bilirubin AST ALT Alkaline Phosphatase B-Natriuretic Peptide Total Protein Albumin Urine Color Urine Appearance Urine pH Ur Specific [place] Urine Protein Urine Glucose (UA) Urine Ketones Urine Blood Urine Nitrite Ur Leukocyte Esterase Urine RBC Urine WBC Ur Squamous Epith Cells Urine Bacteria Hyaline Casts COVID-19 (ANIA) COVID-19 Clin Com Influenza Type A (STEVE) Negative Influenza Type B (STEVE) Negative Influenza A & B Note See Note 11/20/22 11/20/22 11/20/22 11:29 11:29 11:29 MCV MCH MCHC RDW Plt Count MPV Immature Gran % (Auto) Neut % (Auto) Lymph % (Auto) [place] % (Auto) Eos % (Auto) Baso % (Auto) Lymph # (Auto) [place] # (Auto) Eos # (Auto) Baso # (Auto) Abs Immat Gran (auto) Absolute Neuts (auto) Absolute Nucleated RBC Nucleated RBC % (auto) PT INR Anion Gap 12 Estim Creat Clear Calc 20.4 Estimated GFR 22 Random Glucose 107 Lactic Acid Calcium 9.5 Total Bilirubin 0.4 Direct Bilirubin 0.2 AST 43 H ALT 45 H Alkaline Phosphatase 129 H B-Natriuretic Peptide 50 Total Protein 7.3 Albumin 3.5 Urine Color Urine Appearance Urine pH Ur Specific [place] Urine Protein Urine Glucose (UA) Urine Ketones Urine Blood Urine Nitrite Ur Leukocyte Esterase Urine RBC Urine WBC Ur Squamous Epith Cells Urine Bacteria Hyaline Casts COVID-19 (ANIA) Negative COVID-19 Clin Com See Note Influenza Type A (TSEVE) Influenza Type B (STEVE) Influenza A & B Note 11/20/22 11/20/22 12:31 15:54 MCV MCH MCHC RDW Plt Count MPV Immature Gran % (Auto) Neut % (Auto) Lymph % (Auto) [place] % (Auto) Eos % (Auto) Baso % (Auto) Lymph # (Auto) [place] # (Auto) Eos # (Auto) Baso # (Auto) Abs Immat Gran (auto) Absolute Neuts (auto) Absolute Nucleated RBC Nucleated RBC % (auto) PT INR Anion Gap Estim Creat Clear Calc Estimated GFR Random Glucose Lactic Acid 1.1 Calcium Total Bilirubin Direct Bilirubin AST ALT Alkaline Phosphatase B-Natriuretic Peptide Total Protein Albumin Urine Color Yellow Urine Appearance Cloudy Urine pH 5.5 Ur Specific [place] 1.010 Urine Protein Trace Urine Glucose (UA) Negative Urine Ketones Negative Urine Blood Small (1+) H Urine Nitrite Negative Ur Leukocyte Esterase Small (1+) H Urine RBC >20 H Urine WBC 6-10 H Ur Squamous Epith Cells >20 Urine Bacteria 4+ Hyaline Casts 0-2 COVID-19 (ANIA) COVID-19 Clin Com Influenza Type A (STEVE) Influenza Type B (STEVE) Influenza A & B Note Imaging Radiologist's Impressions: Impressions Chest X-Ray 11/20/22 11:48 IMPRESSION: No acute cardiopulmonary process. Chest CT 11/20/22 15:28 IMPRESSION: There is bilateral apical pleural thickening and parenchymal scarring slightly progressed in the right lung apex since the last exam. Small subpleural nodule right lower lobe pleural-based is stable. Atelectatic changes in the right middle lobe and lingula as well as chronic scarring in both lung bases is stable and unchanged. Chronic T12 compression fracture stable. Healing fractures right posterior 10th and 11th ribs are stable. Fleischner guidelines were followed. Assessment and Plan (1) Bronchitis: Status: Acute (2) Pneumonia: Status: Acute Plan 87-year-old female with history of CKD stage 4, hypertension, polymyalgia rheumatica on prednisone 5 mg daily admitted for acute bronchitis with pneumonia. #Acute hypoxemic respiratory failure -secondary to pneumonia/bronchitis -continue supplemental O2 to maintain oximetry >92% -Wean O2 as tolerated #Acute clinical pneumonia with sepsis -No definitive focal consolidations on chest CT but notable areas of atelectasis and given recent fall with leukocytosis and tachypnea as well as productive cough, will treat for pneumonia -IV ceftriaxone and azithromycin 500 mg (initiated 11/20) -symptomatic management -Strep pneumo ag, legionella ag, sputum culture pending -Trend CBC. Follow cultures #Acute bronchitis- possible post viral bronchitis -no underlying asthma or copd -negative for COVID-19 and influenza. Full viral respiratory panel pending -IV methylprednisolone 40 mg Q b.i.d. -DuoNebs Q 4 H while awake -albuterol p.r.n. # hypertension -blood pressure reasonably controlled -continue home antihypertensives # CKD stage 4 -renal function baseline # PMR -hold oral prednisone. IV methylprednisolone as above DVT prophylaxis-renally adjusted Lovenox Full code Patient requires inpatient stay 2 midnights for management of acute clinical pneumonia with hypoxemic respiratory failure and sepsis requriring iv abx and close monitoring Time Spent With Patient Time: Total time managing care of this patient today ____ minutes. Quality Stroke Does the patient have a stroke diagnosis?: No VTE Prior VTE?: No VTE Risk Level:: Medical - moderate - high VTE Device Contraindication: Treatment Not Indicated VTE Drug Contraindication: N/A - Med Ordered
[2022-11-20] MEDS: Enoxaparin Sodium 30 MG/0.3 ML SYRINGE SUBCUT (19:17)
[2022-11-20] MEDS: guaiFENesin 200 MG/10 ML 10 ML LIQUID PO (19:17)
[2022-11-20] MEDS: methylPREDNISolone Sod Succ 40 MG/ML VIAL IVPUSH (19:17)
--- NOTE | 2022-11-20 19:33 | MHC.EDTECH ---
Sid Whitney did belongings list with patient.
--- NOTE | 2022-11-20 19:40 | PC.NURSE ---
Assumed care of patient at 1900. Patient is alert and oriented vss. 2l of oxygen running, trialled pt off supplementation. PT holding 02 at 97% on room air. Discontinued oxygen supp. Belonging list completed by tech. Medications adminsitered as per
[2022-11-20] MEDS: Ezetimibe 10 MG TABLET PO (20:35)
[2022-11-20] MEDS: ALPRAZolam 0.5 MG TABLET PO (20:35)
[2022-11-20] MEDS: Multivitamin TABLET 1 TAB PO (20:36)
[2022-11-20] MEDS: 0.9 % Sodium Chloride Flush 3 ML SYRINGE IVFLUSH (23:58)
[2022-11-21] VITALS (11 sets, daily range): BP systolic 133–164; BP diastolic 60–82; PULSE 67–98; RESP 16–20; TEMP 36–36.6; O2SAT 93–99
[2022-11-21] MEDS: HYDROcodone Bit/Acetam 5/325 TABLET 1 TAB PO (00:02)
[2022-11-21 05:53] LABS: Basophils Percent Auto 0.2 % (0-2); Eosinophils Absolute Auto 0.1 X10*3/uL (0.0-0.4); Eosinophils Percent Auto 0.5 % (0-4); Hematocrit 33.5 % (37.0-47.0); Hemoglobin 10.5 g/dl (12.0-16.0); Imm Gran Abs Auto 0.12 X10*3/uL (0.00-0.03); Imm Gran Pct Auto 0.7 % (0.0-0.4); Lymphocytes Absolute Auto 0.5 X10*3/uL (1.2-4.9); Lymphocytes Percent Auto 2.9 % (20-40); MANUAL DIFF FLAG SCAN; Mean Corpuscular HGB Conc 31.3 g/dl (31.0-35.0); Mean Corpuscular Hemoglobin 28.9 pg (27.0-33.0); Mean Corpuscular Volume 92.3 fL (80.0-98.0); Mean Platelet Volume 9.7 fL (9.4-12.3); Monocytes Absolute Auto 0.1 X10*3/uL (0.1-1.2); Monocytes Percent Auto 0.6 % (2-11); Neutrophils Absolute Auto 17.4 x10*3/uL (2.0-8.3); Neutrophils Percent Auto 95.1 % (45-73); Platelet Count 449 X10*3/uL (160-400); Red Blood Count 3.63 X10*6/uL (4.20-5.50); SCAN SMEAR FLAG 1; White Blood Count 18.3 X10*3/uL (4.8-10.8)
[2022-11-21 06:17] LABS: SLIDE REVIEW VERIFIED
[2022-11-21 06:20] LABS: Anion Gap 17 (12-20); Blood Urea Nitrogen 41 mg/dL (9-16); Calcium 9.2 mg/dL (8.4-10.2); Carbon Dioxide 19 mmol/L (22-29); Chloride 107 mmol/L (96-108); Creatinine Clr Calc Pharmacy 21.3; Estimated Glomerular Filt Rate 23; Glucose Random 188 mg/dL (60-115); Potassium 5.1 mmol/L (3.3-5.1); Sodium 138 mmol/L (135-145)
[2022-11-21] MEDS: Benzonatate 100 MG CAPSULE 200 MG PO (06:33)
[2022-11-21] MEDS: methylPREDNISolone Sod Succ 40 MG/ML VIAL IVPUSH ×2 (06:33→18:10)
[2022-11-21] MEDS: Albuterol/Iprat 2.5/0.5MG 3 ML AMPUL.NEB INHALE ×4 (07:57→19:40)
[2022-11-21] MEDS: Aspirin Enteric Coated 81 MG TABLET.DR PO (08:23)
[2022-11-21] MEDS: Multivitamin TABLET 1 TAB PO ×2 (08:23→20:36)
[2022-11-21] MEDS: hydroCHLOROthiazide 12.5 MG TABLET PO (08:24)
[2022-11-21] MEDS: 0.9 % Sodium Chloride Flush 3 ML SYRINGE IVFLUSH ×3 (08:24→20:39)
[2022-11-21] MEDS: guaiFENesin LA 600 MG TAB.ER.12H PO ×2 (08:24→20:36)
[2022-11-21] MEDS: Valsartan 80 MG TABLET PO (08:24)
[2022-11-21] MEDS: Furosemide 20 MG/2 ML VIAL IVPUSH (09:52)
[2022-11-21] MEDS: cefTRIAXone sodium 1 GM in 0.9 % Sodium Chloride 50 ML IV (12:28)
--- NOTE | 2022-11-21 14:31 | MHC.CM.PN ---
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 REQUESTS [facility] SON TO TRANSPORT
--- NOTE | 2022-11-21 15:00 | P.PNIM_ITS ---
Subjective Subjective Date of Service: 11/21/22 Interval History: Seen and evaluated Still feeling winded and SOB wheezes improved but still coughing On O2 supplement No fever or hcills Review of Systems Review of Systems: Yes all other systems are reviewed and are negative Physical Exam Vital Signs: Vital Signs: Last Vital Signs Temp 97.5 F 11/21/22 07:54 Pulse 80 11/21/22 11:22 Resp 18 11/21/22 11:22 BP 138/60 11/21/22 07:54 Pulse Ox 97 11/21/22 07:54 O2 Del Method Nasal Cannula 11/21/22 07:54 O2 Flow Rate 2.0 11/21/22 07:54 BMI result Body Mass Index 33.3 Const: Other: Constitutional : Awake, interactive, not in distress Neck : Normal inspection, Supple Cardiovascular : RRR, no JVP, no lower extremity edema Respiratory : fair bilateral air entry, basal fine left crackles, scattered wheezes Gastrointestinal: soft, lax, Normal bowel sounds, Non tender Skin : Warm, Dry Neurological : Alert & oriented x3, No focal deficit Objective Data Active Medications Acetaminophen (Acetaminophen 325 Mg Tablet) 650 mg PO Q6H PRN PRN Reason: Pain, Mild (Pain Scale 1-3) Hydrocodone Bitart/Acetaminophen (Hydrocodone Bit/Acetam 5/325 Tablet) 1 tab PO Q12H PRN PRN Reason: Pain, Severe (Pain Scale 7-10) Albuterol/Ipratropium (Albuterol/Iprat 2.5/0.5mg 3 Ml Ampul.Neb) 3 ml INHALE RQ4H WHILE AWAKE [facility] Last Admin: 11/21/22 11:20 Dose: 3 ml Documented By: SOPHIE Alprazolam (Alprazolam 0.5 Mg Tablet) 0.5 mg PO BEDTIME [facility] Last Admin: 11/20/22 20:35 Dose: 0.5 mg Documented By: TANYA Alprazolam (Alprazolam 0.5 Mg Tablet) 0.5 mg PO DAILY PRN PRN Reason: Anxiety Aspirin (Aspirin Enteric Coated 81 Mg Tablet.) 81 mg PO DAILY [facility] Last Admin: 11/21/22 08:23 Dose: 81 mg Documented By: COLTEN Azithromycin (Azithromycin 500 Mg Tablet) 500 mg PO Q24H [facility] Stop: 11/22/22 16:01 Benzonatate (Benzonatate 100 Mg Capsule) 200 mg PO TID PRN PRN Reason: Cough Last Admin: 11/21/22 06:33 Dose: 200 mg Documented By: TANYA Brimonidine Tartrate (Brimonidine Tartrate 0.2% Oph 5 Ml Bottle) 1 drop EYE- LEFT BID [facility] Last Admin: 11/21/22 10:14 Dose: Not Given Documented By: COLTEN Non-Admin Reason: pt refused Docusate Sodium (Docusate Sodium 100 Mg Capsule) 100 mg PO DAILY PRN PRN Reason: Constipation Ezetimibe (Ezetimibe 10 Mg Tablet) 10 mg PO BEDTIME [facility] Last Admin: 11/20/22 20:35 Dose: 10 mg Documented By: TANYA Enoxaparin Sodium (Enoxaparin Sodium 30 Mg/0.3 Ml Syringe) 30 mg SUBCUT Q24H [facility] Last Admin: 11/20/22 19:17 Dose: 30 mg Documented By: TONY Guaifenesin (Guaifenesin La 600 Mg Tab.Er.12h) 600 mg PO BID [facility] Last Admin: 11/21/22 08:24 Dose: 600 mg Documented By: COLTEN Hydrochlorothiazide (Hydrochlorothiazide 12.5 Mg Tablet) 12.5 mg PO DAILY [facility] Last Admin: 11/21/22 08:24 Dose: 12.5 mg Documented By: COLTEN Ceftriaxone Sodium 1 gm/ (Sodium Chloride) 50 mls @ 100 mls/hr IV Q24H [facility] Last Infusion: 11/21/22 13:10 Dose: 0 mls/hr Documented By: COLTEN Latanoprost (Latanoprost 0.005 % Ophth Katie 2.5 Ml Drops) 1 drop EYE-BOTH BEDTIME [facility] Last Admin: 11/20/22 22:15 Dose: Not Given Documented By: TANYA Non-Admin Reason: Med Not Available Methylprednisolone Sodium Succinate (Methylprednisolone Sod Succ 40 Mg/Ml Vial) 40 mg IVPUSH Q12H [facility] Last Admin: 11/21/22 06:33 Dose: 40 mg Documented By: TANYA Multivitamins/Vitamin C (Multivitamin Tablet) 1 tab PO BID [facility] Last Admin: 11/21/22 08:23 Dose: 1 tab Documented By: COLTEN Ondansetron HCl (Ondansetron Hcl 4 Mg/2 Ml Vial) 4 mg IVPUSH Q8H PRN PRN Reason: Nausea and Vomiting Polyethylene Glycol (Polyethylene Glycol 3350 17 Gm Powd.Pack) 17 gm PO BID PRN PRN Reason: Constipation Sodium Chloride (0.9 % Sodium Chloride Flush 3 Ml Syringe) 3 ml IVFLUSH QSHIFT [facility] Last Admin: 11/21/22 08:24 Dose: 3 ml Documented By: COLTEN Timolol Maleate (Timolol Maleate 0.5 % Oph Katie 5 Ml Drbtl) 1 drop EYE-LEFT BID [facility] Last Admin: 11/21/22 10:15 Dose: Not Given Documented By: COLTEN Non-Admin Reason: pt refused Valsartan (Valsartan 80 Mg Tablet) 80 mg PO DAILY [facility] Last Admin: 11/21/22 08:24 Dose: 80 mg Documented By: COLTEN Labs 11/21/22 05:20 11/21/22 05:20 Labs: Laboratory Results - last 24 hr 11/20/22 11/21/22 11/21/22 15:54 05:20 05:20 MCV 92.3 MCH 28.9 MCHC 31.3 RDW 14.0 Plt Count 449 H MPV 9.7 Immature Gran % (Auto) 0.7 H Neut % (Auto) 95.1 H Lymph % (Auto) 2.9 L [place] % (Auto) 0.6 L Eos % (Auto) 0.5 Baso % (Auto) 0.2 Lymph # (Auto) 0.5 L [place] # (Auto) 0.1 Eos # (Auto) 0.1 Baso # (Auto) 0.0 Abs Immat Gran (auto) 0.12 H Absolute Neuts (auto) 17.4 H Absolute Nucleated RBC 0.000 Nucleated RBC % (auto) 0.0 Smear Tech's Comments VERIFIED Anion Gap 17 Estim Creat Clear Calc 21.3 Estimated GFR 23 Random Glucose 188 H Calcium 9.2 Urine Color Yellow Urine Appearance Cloudy Urine pH 5.5 Ur Specific [place] 1.010 Urine Protein Trace Urine Glucose (UA) Negative Urine Ketones Negative Urine Blood Small (1+) H Urine Nitrite Negative Ur Leukocyte Esterase Small (1+) H Urine RBC >20 H Urine WBC 6-10 H Ur Squamous Epith Cells >20 Urine Bacteria 4+ Hyaline Casts 0-2 Microbiology Microbiology Results: Microbiology 11/20/22 12:31 Blood Culture - Preliminary Blood - Venous No growth after 24 hours. 11/20/22 12:32 Blood Culture - Preliminary Blood - Venous No growth after 24 hours. 11/20/22 15:54 Urine Culture - Preliminary Urine clean catch - Urine gonzalez top Culture too young to evaluate. Assessment and Plan (1) Bronchitis: Status: Acute (2) Pneumonia: Status: Acute (3) Sepsis: Status: Acute Plan 87-year-old female with history of CKD stage 4, hypertension, polymyalgia rheumatica on prednisone 5 mg daily admitted for acute bronchitis with pneumon ia. #Acute hypoxemic respiratory failure secondary to pneumonia and COPD exacerbation Continue to wean O2 as tolerated Treat underlyin problems as below # Sepsis 2/2 pneumonia Pending cultures IV ceftriaxone and azithromycin 500 mg (initiated 11/20) Cough med Strep pneumo ag, legionella ag, sputum culture pending # COPD exacerbation possible post viral Illness Full viral respiratory panel pending IV methylprednisolone 40 mg Q b.i.d. DuoNebs Q 4 H while awake albuterol p.r.n. No previous diagnosis of COPD but this is likely what is going on with worsening SOB over last few years, Hx of smoking for >40 yrz quit 5 yrz ago Will need OP PFT and inhalor on discharge # hypertension continue home antihypertensives # CKD stage 4 renal function baseline # PMR hold oral prednisone. IV methylprednisolone as above DVT prophylaxis renally adjusted Lovenox Full code Patient requires inpatient stay overnight for management of acute clinical pneumonia with hypoxemic respiratory failure and sepsis requriring iv abx and close monitoring Time Spent With Patient Time: Total time managing care of this patient today ____ minutes. Quality Stroke Does the patient have a stroke diagnosis?: No VTE Prior VTE?: No VTE Risk Level:: Medical - moderate - high VTE Device Contraindication: Treatment Not Indicated VTE Drug Contraindication: N/A - Med Ordered
[2022-11-21] MEDS: Azithromycin 500 MG TABLET PO (16:04)
[2022-11-21 16:23] LABS: Adenovirus PCR Not Detected (Not Detect.); Bordetella parapertussis PCR Not Detected (Not Detect.); Bordetella pertussis PCR Not Detected (Not Detect.); Chlamydia pneumoniae PCR Not Detected (Not Detect.); Coronavirus 229E PCR Not Detected (Not Detect.); Coronavirus HKU1 PCR Not Detected (Not Detect.); Coronavirus NL63 PCR Not Detected (Not Detect.); Coronavirus OC43 PCR Not Detected (Not Detect.); Human metapneumovirus PCR Not Detected (Not Detect.); Influenza A PCR Not Detected (Not Detect.); Influenza B PCR Not Detected (Not Detect.); Mycoplasma pneumoniae PCR Not Detected (Not Detect.); Parainfluenza 1 PCR Not Detected (Not Detect.); Parainfluenza 2 PCR Not Detected (Not Detect.); Parainfluenza 3 PCR Not Detected (Not Detect.); Parainfluenza 4 PCR Not Detected (Not Detect.); RSV PCR Not Detected (Not Detect.); Rhino/Enterovirus PCR Not Detected (Not Detect.); SARS-CoV-2 PCR Not Detected (Not Detect.)
[2022-11-21] MEDS: Enoxaparin Sodium 30 MG/0.3 ML SYRINGE SUBCUT (18:10)
[2022-11-21] MEDS: Ezetimibe 10 MG TABLET PO (20:36)
[2022-11-21] MEDS: ALPRAZolam 0.5 MG TABLET PO (20:36)
[2022-11-21] MEDS: timoloL maleate 0.5 % Oph Sol 5 ML DRBTL 1 DROP EYE-LEFT (22:27)
[2022-11-21] MEDS: Brimonidine Tartrate 0.2% Oph 5 ML BOTTLE 1 DROP EYE-LEFT (22:27)
[2022-11-21] MEDS: Latanoprost 0.005 % Ophth Sol 2.5 ML DROPS 1 DROP EYE-BOTH (22:27)
[2022-11-22] VITALS (8 sets, daily range): BP systolic 133–143; BP diastolic 61–82; PULSE 70–99; RESP 16–18; TEMP 36.1–36.4; O2SAT 94–97
[2022-11-22] MEDS: methylPREDNISolone Sod Succ 40 MG/ML VIAL IVPUSH (05:26)
[2022-11-22 06:12] LABS: Hematocrit 33.7 % (37.0-47.0); Hemoglobin 10.7 g/dl (12.0-16.0); Mean Corpuscular HGB Conc 31.8 g/dl (31.0-35.0); Mean Corpuscular Hemoglobin 28.8 pg (27.0-33.0); Mean Corpuscular Volume 90.6 fL (80.0-98.0); Mean Platelet Volume 9.6 fL (9.4-12.3); Platelet Count 514 X10*3/uL (160-400); Red Blood Count 3.72 X10*6/uL (4.20-5.50)
[2022-11-22 07:11] LABS: Anion Gap 16 (12-20); Blood Urea Nitrogen 52 mg/dL (9-16); Calcium 9.9 mg/dL (8.4-10.2); Carbon Dioxide 21 mmol/L (22-29); Chloride 107 mmol/L (96-108); Estimated Glomerular Filt Rate 21; Glucose Random 129 mg/dL (60-115); Potassium 4.9 mmol/L (3.3-5.1); Sodium 139 mmol/L (135-145)
[2022-11-22] MEDS: Albuterol/Iprat 2.5/0.5MG 3 ML AMPUL.NEB INHALE ×3 (08:00→19:11)
[2022-11-22] MEDS: Multivitamin TABLET 1 TAB PO ×2 (09:16→21:05)
[2022-11-22] MEDS: hydroCHLOROthiazide 12.5 MG TABLET PO (09:16)
[2022-11-22] MEDS: Aspirin Enteric Coated 81 MG TABLET.DR PO (09:16)
[2022-11-22] MEDS: 0.9 % Sodium Chloride Flush 3 ML SYRINGE IVFLUSH ×2 (09:16→15:54)
[2022-11-22] MEDS: Valsartan 80 MG TABLET PO (09:16)
[2022-11-22] MEDS: Brimonidine Tartrate 0.2% Oph 5 ML BOTTLE 1 DROP EYE-LEFT ×2 (09:18→21:05)
[2022-11-22] MEDS: timoloL maleate 0.5 % Oph Sol 5 ML DRBTL 1 DROP EYE-LEFT ×2 (09:18→21:05)
[2022-11-22] MEDS: cefTRIAXone sodium 1 GM in 0.9 % Sodium Chloride 50 ML IV (12:36)
--- NOTE | 2022-11-22 13:20 | HO.PM.IMPN ---
Subjective Subjective Date of Service: 11/22/22 Interval History: Complaining of persistent shortness of breath that is present for last several years, worse with exertion, ambulate short distances only at home , initially cough was productive of clear to yellow phlegm now it is mostly dry, denies fever, no chills, no nausea no vomiting abdominal pain, tolerating diet no diarrhea no other acute issues of lightheadedness or dizziness. Review of Systems All other system reviewed and negative. Physical Exam Vital Signs: Vital Signs: Last Vital Signs Temp 97.6 F 11/22/22 07:53 Pulse 74 11/22/22 10:41 Resp 16 11/22/22 08:54 BP 136/66 11/22/22 07:53 Pulse Ox 95 11/22/22 07:53 O2 Del Method Room Air 11/22/22 07:53 O2 Flow Rate 2.0 11/21/22 07:54 BMI result Body Mass Index 33.3 Const: Other: Constitutional : Awake, interactive, not in distress Neck : Normal inspection, Supple Cardiovascular : RRR, no JVD, no lower extremity edema Respiratory : Good air entry no wheeze, no rhonchi, no crackles, no use of accessory muscles Gastrointestinal:? soft, Normal bowel sounds, Non tender Skin : Warm, Dry Extremities edema dorsum of both feet. Neurological : Alert & oriented x3, No focal deficit Objective Data Active Medications Acetaminophen (Acetaminophen 325 Mg Tablet) 650 mg PO Q6H PRN PRN Reason: Pain, Mild (Pain Scale 1-3) Hydrocodone Bitart/Acetaminophen (Hydrocodone Bit/Acetam 5/325 Tablet) 1 tab PO Q12H PRN PRN Reason: Pain, Severe (Pain Scale 7-10) Albuterol/Ipratropium (Albuterol/Iprat 2.5/0.5mg 3 Ml Ampul.Neb) 3 ml INHALE RQ4H WHILE AWAKE [facility] Last Admin: 11/22/22 11:19 Dose: 3 ml Documented By: MAULIK Alprazolam (Alprazolam 0.5 Mg Tablet) 0.5 mg PO BEDTIME [facility] Last Admin: 11/21/22 20:36 Dose: 0.5 mg Documented By: SIA Alprazolam (Alprazolam 0.5 Mg Tablet) 0.5 mg PO DAILY PRN PRN Reason: Anxiety Aspirin (Aspirin Enteric Coated 81 Mg Tablet.) 81 mg PO DAILY [facility] Last Admin: 11/22/22 09:16 Dose: 81 mg Documented By: COLTEN Azithromycin (Azithromycin 500 Mg Tablet) 500 mg PO Q24H [facility] Stop: 11/22/22 16:01 Last Admin: 11/21/22 16:04 Dose: 500 mg Documented By: COLTEN Benzonatate (Benzonatate 100 Mg Capsule) 200 mg PO TID PRN PRN Reason: Cough Last Admin: 11/21/22 06:33 Dose: 200 mg Documented By: TANYA Brimonidine Tartrate (Brimonidine Tartrate 0.2% Oph 5 Ml Bottle) 1 drop EYE-LEFT BID [facility] Last Admin: 11/22/22 09:18 Dose: 1 drop Documented By: COLTEN Docusate Sodium (Docusate Sodium 100 Mg Capsule) 100 mg PO DAILY PRN PRN Reason: Constipation Ezetimibe (Ezetimibe 10 Mg Tablet) 10 mg PO BEDTIME [facility] Last Admin: 11/21/22 20:36 Dose: 10 mg Documented By: SIA Enoxaparin Sodium (Enoxaparin Sodium 30 Mg/0.3 Ml Syringe) 30 mg SUBCUT Q24H [facility] Last Admin: 11/21/22 18:10 Dose: 30 mg Documented By: COLTEN Guaifenesin (Guaifenesin La 600 Mg Tab.Er.12h) 600 mg PO BID [facility] Last Admin: 11/22/22 09:20 Dose: Not Given Documented By: COLTEN Non-Admin Reason: pt refused states it doesn't work Hydrochlorothiazide (Hydrochlorothiazide 12.5 Mg Tablet) 12.5 mg PO DAILY [facility] Last Admin: 11/22/22 09:16 Dose: 12.5 mg Documented By: COLTEN Ceftriaxone Sodium 1 gm/ (Sodium Chloride) 50 mls @ 100 mls/hr IV Q24H [facility] Last Admin: 11/22/22 12:36 Dose: 100 mls/hr Documented By: COLTEN Latanoprost (Latanoprost 0.005 % Ophth Katie 2.5 Ml Drops) 1 drop EYE-BOTH BEDTIME [facility] Last Admin: 11/21/22 22:27 Dose: 1 drop Documented By: SIA Methylprednisolone Sodium Succinate (Methylprednisolone Sod Succ 40 Mg/Ml Vial) 40 mg IVPUSH Q12H [facility] Last Admin: 11/22/22 05:26 Dose: 40 mg Documented By: SIA Multivitamins/Vitamin C (Multivitamin Tablet) 1 tab PO BID [facility] Last Admin: 11/22/22 09:16 Dose: 1 tab Documented By: COLTEN Ondansetron HCl (Ondansetron Hcl 4 Mg/2 Ml Vial) 4 mg IVPUSH Q8H PRN PRN Reason: Nausea and Vomiting Polyethylene Glycol (Polyethylene Glycol 3350 17 Gm Powd.Pack) 17 gm PO BID PRN PRN Reason: Constipation Sodium Chloride (0.9 % Sodium Chloride Flush 3 Ml Syringe) 3 ml IVFLUSH QSHIFT [facility] Last Admin: 11/22/22 09:16 Dose: 3 ml Documented By: COLTEN Timolol Maleate (Timolol Maleate 0.5 % Oph Katie 5 Ml Drbtl) 1 drop EYE-LEFT BID [facility] Last Admin: 11/22/22 09:18 Dose: 1 drop Documented By: COLTEN Valsartan (Valsartan 80 Mg Tablet) 80 mg PO DAILY [facility] Last Admin: 11/22/22 09:16 Dose: 80 mg Documented By: COLTEN Labs 11/22/22 05:44 11/22/22 05:44 Labs: Laboratory Results - last 24 hr 11/21/22 11/22/22 11/22/22 13:45 05:44 05:44 MCV 90.6 MCH 28.8 MCHC 31.8 RDW 14.0 Plt Count 514 H MPV 9.6 Absolute Nucleated RBC 0.000 Nucleated RBC % (auto) 0.0 Anion Gap 16 Estim Creat Clear Calc 20.0 Estimated GFR 21 Random Glucose 129 H Calcium 9.9 D Respiratory Panel Beard See Note Adenovirus (Rapid PCR) Not Detected B.pert (TEM-PCR) Not Detected B.parapertussis DNA PCR Not Detected C. pneumoniae DNA (PCR) Not Detected Coronavirus OC43 (PCR) Not Detected Coronavirus HKU1 (PCR) Not Detected Coronavirus 229E (PCR) Not Detected Coronavirus NL63 (PCR) Not Detected Human Metapneumovir PCR Not Detected Influenza A (RT-PCR) Not Detected Influenza B (RT-PCR) Not Detected M. pneumoniae (PCR) Not Detected Parainfluenza 1 (PCR) Not Detected Parainfluenza 2 (PCR) Not Detected Parainfluenza 3 (PCR) Not Detected Parainfluenza 4 (PCR) Not Detected RSV (PCR) Not Detected Entero/Rhino (PCR) Not Detected SARS-CoV-2 RNA (RT-PCR) Not Detected Microbiology Microbiology Results: Microbiology 11/20/22 15:54 Urine Culture - Final Urine clean catch - Urine gonzalez top 11/20/22 12:31 Blood Culture - Preliminary Blood - Venous No growth after 24 hours. 11/20/22 12:32 Blood Culture - Preliminary Blood - Venous No growth after 24 hours. Assessment and Plan (1) Bronchitis: Status: Acute (2) Pneumonia: Status: Acute (3) Sepsis: Status: Acute Plan 87-year-old female with history of CKD stage 4, hypertension, polymyalgia rheumatica on prednisone 5 mg daily admitted for acute bronchitis with pneumonia. #Acute hypoxemic respiratory failure secondary to clinical pneumonia and COPD exacerbation Persistent shortness of breath worse with exertion CT chest and chest x-ray consistent with atelectasis and apical scarring Not on home oxygen quit smoking 5 years ago # Sepsis 2/2 pneumonia Blood cultures and urine cultures negative IV ceftriaxone and azithromycin 500 mg (initiated 11/20), will transition to by mouth antibiotics Cough med Strep pneumo ag, legionella ag, sputum culture pending # mild acute COPD exacerbation possible post viral Illness Full viral respiratory panel neg on IV methylprednisolone 40 mg Q b.i.d., will transition to by mouth prednisone low-dose patient at baseline 5 mg for polymyalgia rheumatica Change DuoNebs to q.6 hours albuterol p.r.n. No previous diagnosis of COPD but this is likely what is going on with worsening SOB over last few years, Hx of smoking for >40 yrz quit 5 yrz ago Will need OP PFT and inhalor on discharge , CT chest showed atelectasis and apical scarring # hypertension continue home antihypertensives # CKD stage 4 renal function baseline # PMR On oral prednisone 5 mg daily DVT prophylaxis renally adjusted Lovenox Full code Patient requires continued inpatient stay due to persistent shortness of breath with exertion seen by PT they recommend home with therapy patient unable to do outpatient pulmonary rehab , due to difficulty getting out of home, With limited ambulation hopefully that will improve with BT Time Spent With Patient Time: Total time managing care of this patient today ____ minutes. Quality Stroke Does the patient have a stroke diagnosis?: No VTE Prior VTE?: No VTE Risk Level:: Medical - moderate - high VTE Device Contraindication: Treatment Not Indicated VTE Drug Contraindication: N/A - Med Ordered
--- NOTE | 2022-11-22 14:23 | MHC.CM.PN ---
Per MD no discharge today. Patient continues with SOB. DP home with [facility]. Patient son will provide transport home.
[2022-11-22] MEDS: Azithromycin 500 MG TABLET PO (15:53)
[2022-11-22] MEDS: Enoxaparin Sodium 30 MG/0.3 ML SYRINGE SUBCUT (17:51)
[2022-11-22] MEDS: Latanoprost 0.005 % Ophth Sol 2.5 ML DROPS 1 DROP EYE-BOTH (21:05)
[2022-11-22] MEDS: Ezetimibe 10 MG TABLET PO (21:05)
[2022-11-22] MEDS: guaiFENesin LA 600 MG TAB.ER.12H PO (21:05)
[2022-11-22] MEDS: ALPRAZolam 0.5 MG TABLET PO (21:05)
[2022-11-23 03:25] VITALS: BP 158/82; PULSE 78; RESP 19; TEMP 36.1; O2SAT 95
[2022-11-23] MEDS: Fluticasone/Vilanterol 100/25 BLST.W.DEV 1 PUFF INHALE (07:45)
[2022-11-23] MEDS: Albuterol/Iprat 2.5/0.5MG 3 ML AMPUL.NEB INHALE (07:45)
[2022-11-23 07:46] VITALS: PULSE 83; RESP 18; O2SAT 97
[2022-11-23 08:00] VITALS: BP 140/60; PULSE 79; RESP 20; TEMP 36.1; O2SAT 94
[2022-11-23] MEDS: Benzonatate 100 MG CAPSULE 200 MG PO (08:26)
[2022-11-23] MEDS: Aspirin Enteric Coated 81 MG TABLET.DR PO (08:27)
[2022-11-23] MEDS: Multivitamin TABLET 1 TAB PO (08:27)
[2022-11-23] MEDS: predniSONE 10 MG TABLET PO (08:27)
[2022-11-23] MEDS: hydroCHLOROthiazide 12.5 MG TABLET PO (08:28)
[2022-11-23] MEDS: Valsartan 80 MG TABLET PO (08:28)
[2022-11-23] MEDS: Brimonidine Tartrate 0.2% Oph 5 ML BOTTLE 1 DROP EYE-LEFT (08:30)
[2022-11-23] MEDS: timoloL maleate 0.5 % Oph Sol 5 ML DRBTL 1 DROP EYE-LEFT (08:30)
--- NOTE | 2022-11-23 10:47 | PM.DS ---
DS: Providers Provider Date of Service: 11/23/22 Date of admission: 11/20/22 17:43 Primary care physician: Seng Dalton [facility] DS: Diagnosis Discharge Diagnosis (1) Bronchitis: Status: Acute (2) Pneumonia: Status: Acute (3) Sepsis: Status: Acute DS: Summary Hospital Course Hospital Course: Date of Service: 11/20/22 Attending physician on admission: Santos Meyers Chief Complaint: cough, sob 87-year-old female with history of CKD stage 4, hypertension, polymyalgia rheumatica on prednisone 5 mg daily presents to the ED for evaluation of productive cough and shortness of breath.? She tells me that she has been experiencing dyspnea on exertion for several years but about 1 month ago shortness of breath acutely worsened with productive cough.? Symptoms did get better but then recurred about 1 week ago.? States her son is sick with similar symptoms.? Has had sore throat, postnasal drip, productive cough, and again the shortness of breath both with exertion and at rest.? Denies any fevers, chills, abdominal pain, nausea, vomiting, diarrhea, sinus pain, headaches, lightheadedness, chest pain.? She has also been reporting some stress incontinence when coughing but otherwise denies any urinary symptoms.? On arrival, vital stable the patient did develop a significant tachypnea to 30 and hypoxia into the high 80s.? Has no known history of chronic lung disease.? She has leukocytosis of 20.2, baseline is around 12 given chronic steroid use.? Renal function baseline, electrolyte levels normal.? LFTs slightly elevated with AST 43, ALT 45.? Troponin 9.4, BNP 50.? Urinalysis significant for 1+ leukocytes, 1+ blood, negative nitrites, positive urinary sediment and 4+ bacteria.? She is negative for COVID-19, influenza.? Full viral respiratory panel has been ordered and is pending.? Chest x-ray negative for any acute cardiopulmonary process.? Chest CT showing chronic T12 compression fracture which is stable as well as healing fractures of the right posterior 10th and 11th ribs which appear stable.? There is also bilateral apical pleural thickening and parenchymal scarring as well as atelectatic changes in the right middle lobe and lingula as well as chronic scarring in both lung bases which appear stable.? Of note, patient did have a fall onto the right side 3 months ago.? In the ED has received 2 g IV Rocephin, 500 mg Zithromax, 500 mL IV NS, and DuoNeb. Given persistent respiratory distress, pt to be admitted for further management. Hospital course: 87-year-old female with history of CKD stage 4, hypertension, polymyalgia rheumatica on prednisone 5 mg daily admitted for acute bronchitis with pneumonia. # patient admitted to hospital with a diagnosis of Acute hypoxemic respiratory failure secondary to sepsis related to clinical pneumonia/bronchitis and COPD exacerbation, CT chest and chest x-ray consistent with atelectasis and apical scarring, treated with IV ceftriaxone and azithromycin, as well as IV steroids, updraft treatment and cough medication, patient improved significantly currently oxygenating well on room air she continue to have shortness of breath with exertion likely due to deconditioning lack of mobility in last several months, evaluated by Physical therapy and they recommend home PT therefore discharge with home services, recommended outpatient pulmonary rehab but at present patient declined since has difficulty getting in and out of home, will discharge home on albuterol as needed 3 more days of antibiotics and higher dose of steroid strongly recommend to use incentive spirometry, patient has no diagnosis of COPD but has history of smoking greater than 40 years quit 5 years ago. Recommend outpatient PFTs, blood cultures and urine culture came back negative, COVID-19 negative Urine strep pneumo antigen pending. # hypertension is stable blood pressures, continue home antihypertensives # CKD stage 4 renal function remained at baseline # PMR no acute exacerbation continue prednisone 5 mg by mouth daily Time Spent with Patient Time attestation: Total time managing care of this patient today ____ minutes. Discharge coordination time: Greater than 30 minutes Quality: Safe Use of Opioids Does Pt have an Active Cancer Diagnosis on the Problem List?: No Quality: Stroke Does the patient have a stroke diagnosis?: No Physical Exam Vital Signs: Vital Signs: Last Vital Signs Temp 97.0 F 11/23/22 08:00 Pulse 79 11/23/22 08:00 Resp 20 11/23/22 08:00 BP 140/60 H 11/23/22 08:00 Pulse Ox 94 11/23/22 08:00 O2 Del Method Room Air 11/23/22 08:00 O2 Flow Rate 2.0 11/21/22 07:54 BMI result Body Mass Index 33.3 Const: Other: Constitutional : Awake alert x3, not in distress Neck : Normal inspection, Supple Cardiovascular : RRR, no JVD, no lower extremity edema Respiratory :? Good air entry no wheeze, no rhonchi, no crackles, no use of accessory muscles Gastrointestinal:? soft, Normal bowel sounds, Non tender Skin : Warm, Dry Extremities edema dorsum of both feet. Neurological : Alert & oriented x3, No focal deficit DS: Data Data Completed and Pending Labs on day of discharge: Preliminary micro results at discharge 11/20/22 12:31 Blood Culture - Preliminary Blood - Venous No growth after 48 hours. 11/20/22 12:32 Blood Culture - Preliminary Blood - Venous No growth after 48 hours. Discharge Plan Discharge Anticipated Discharge Date/Time: 11/23/22 10:38 Patient Disposition: Home Health Service Discharge Diagnosis: Sepsis due to pneumonia Referrals: Seng Dalton FNP-BC [Primary Care Provider] - 1 Week Discharge Medications: New benzonatate 100 mg Capsule 200 mg PO TID PRN (Reason: Cough) Qty: 30 0RF prednisone 10 mg Tablet 10 mg PO DAILY Qty: 5 0RF fluticasone furoate-vilanterol [Breo Ellipta] 100-25 mcg/dose Blister With Device 1 inh inhalation RDAILY Qty: 60 0RF albuterol sulfate 90 mcg/actuation HFA aerosol inhaler 2 inh inhalation Q4H PRN (Reason: shortness of breath or wheezing) Qty: 8.5 0RF doxycycline monohydrate 100 mg capsule 100 mg PO BID Qty: 6 0RF Continued hydrocodone-acetaminophen 5-325 mg tablet 1 tab PO DAILY PRN (Reason: pain) 30 Days Qty: 30 0RF irbesartan-hydrochlorothiazide 150-12.5 mg tablet 1 tab PO DAILY Qty: 90 1RF alprazolam 0.5 mg tablet 0.5 mg PO DAILY PRN (Reason: Anxiety) alprazolam 0.5 mg tablet 0.5 mg PO BEDTIME polyethylene glycol 3350 [Miralax] 17 gram/dose powder 17 g PO BID PRN (Reason: Constipation) ezetimibe 10 mg tablet 10 mg PO BEDTIME timolol maleate 0.5 % drops 1 drp ophthalmic-Left BID brimonidine 0.2 % drops 1 drp ophthalmic-Left BID latanoprost 0.005 % drops 1 drp ophthalmic (eye) BEDTIME (DME) Knee brace Misc See Rx Instructions .Route Qty: 2 0RF Rx Instructions: Bilateral knee braces (hinged knee braces) aspirin [Talia Low Dose Aspirin] 81 mg tablet,delayed release (DR/EC) 81 mg PO DAILY PreserVision AREDS-2 250-90-40-1 mg tablet,chewable 1 tab PO BID Held prednisone 5 mg tablet 5 mg PO BEDTIME Hold Instructions: Resume on 11/29/22. Discharge Orders: Discharge Order (Routine); Ordered 11/23/22 Ordered By: Glo Keane Diet: Advance to usual diet Activity on Discharge: As tolerated Stand Alone Forms: Patient Portal Discharge page Care Plan Goals: Shortness of breath, use incentive spirometry every 2 hours as needed follow low-calorie diet Discharged home with physical therapy, ambulate as tolerated do [id number] exercises while sitting Use albuterol inhaler if noted to have shortness of breath or wheeze, use Breo once daily rinsing mouth after using the medicine Take prednisone 10 mg daily for 5 days then go back to prednisone 5 mg by mouth daily Take doxycycline 1 tablet twice daily for 3 days. Health Concerns: Take all other medications as prescribed Plan of Treatment: Outpatient follow-up with primary care physician call for appointment Assessment: As above
--- NOTE | 2022-11-23 11:54 | W.MHC.F2F ---
Service Date Service Date: 11/23/22 Encounter Date of encounter: 11/23/22 Reasons for Services Signs and symptoms assessed: Shortness of breath with exertion, deconditioning Reason for physical therapy: home safety and mobility and gait/transfer training Homebound: Leaving the home is medically contraindicated at this time without the asist of a device and/or another person due th the listed conditions above and below. Reason homebound: weakness related to hospital stay Homebound supporting statement: Unable to to stairs/weakness post hospital stay Certification: Based on the above findings, I certify that this patient is confined to the home and needs intermittent [facility] care, physical therapy and/or speech therapy, or continues to need occupational therapy. The patient is under my care, and I have initiated the establishment of the plan of care. The patient will be followed by a physician who will periodically review the plan of care. Time Spent With Patient Time: Total time managing care of this patient today ____ minutes.
[2022-11-25 03:39] LABS: Strep Pneumo Ag urine Not Detected (Not Detected)
[2022-11-28 05:09] LABS: Legionella Ag Urine Not Detected (Not Detected)
== END 2022-11-23 11:55 | disposition home health service (06) | DRG 871 ==
LOC: HO.ED 17:07 → HO.EDOVER 18:54 → HO.S3 19:13
PROVIDERS: Emergency Medicine; Physician Assistant; Student in an Organized Health Care Education/Training Program; Admitting Provider Physician Assistant; Emergency Provider Emergency Medicine; PCP Nurse Practitioner Family; Visit Provider Hospitalist
DX: A41.9 Sepsis, unspecified organism (principal); J96.01 Acute respiratory failure with hypoxia; J44.0 Chronic obstructive pulmonary disease with (acute) lower respiratory infection; N18.4 Chronic kidney disease, stage 4 (severe); J44.1 Chronic obstructive pulmonary disease with (acute) exacerbation; J98.11 Atelectasis; M35.3 Polymyalgia rheumatica; F41.9 Anxiety disorder, unspecified; J20.9 Acute bronchitis, unspecified; I12.9 Hypertensive chronic kidney disease with stage 1 through stage 4 chronic kidney disease, or unspecified chronic kidney disease; Z20.822 Contact with and (suspected) exposure to COVID-19; Z79.52 Long term (current) use of systemic steroids; Z79.82 Long term (current) use of aspirin; Z79.899 Other long term (current) drug therapy
CPT/HCPCS: 36415; 71046; 71250; 80048; 80076; 81001; 83605; 83880; 84484; 85025; 85027; 85610; 87040; 87086; 87449; 87502; 87633; 87635; 87899; 93005; 94640; 97116; 97162; 97530; 99285; J0456; J0696; J1650; J1940; J2920

== ENCOUNTER → 2022-11-20 17:43 | Outpatient (BNV) | payer MEDICARE, SELFPAY | PROVIDERS: Admitting Provider Physician Assistant; Emergency Provider Emergency Medicine; PCP Nurse Practitioner Family; Visit Provider Physician Assistant | DX: J40 Bronchitis, not specified as acute or chronic (principal); J18.9 Pneumonia, unspecified organism; A41.9 Sepsis, unspecified organism | CPT/HCPCS: 99223; 99233; 99239; G0180 ==

== ENCOUNTER 2022-11-27 15:49 | Outpatient (AMB) | payer MEDICARE, SELFPAY ==
--- NOTE | 2022-11-27 15:53 | A.OFFPC_ITS ---
Vital Signs 11/27/22 15:55 Height 5 ft 5 in BMI Reason not done Patient refused/unable BP 134/68 Blood Pressure Location Lt brachial Position Sitting Pulse 71 Pulse Source Pulse Oximeter Pulse Oximetry (%) 98 Oxygen Delivery Method Room Air Intake Visit Reasons: HDF ~ Post hospital discharge FU Allergies codeine [CODEINE] Allergy (Unknown, Verified 11/27/22 16:00) EXACERBATES HERNIA IN ESOPHAGUS? Sulfa (Sulfonamide Antibiotics) Allergy (Unknown, Verified 11/27/22 16:00) rash tramadol Adverse Reaction (Intermediate, Verified 11/27/22 16:00) Nausea amoxicillin Adverse Reaction (Unknown, Verified 11/27/22 16:00) Yeast infection rosuvastatin [Crestor] Adverse Reaction (Unknown, Verified 11/27/22 16:00) Worsened PMR Codeine Phosphate Allergy (Unknown, Uncoded 11/27/22 16:00) unknown Clotrimazole-Betamethasone Adverse Reaction (Unknown, Uncoded 11/27/22 16:00) Red blotches on skin Medication List - Last Reconciled 11/27/22 by Seng Dalton, JOAQUIN- albuterol sulfate 90 mcg/actuation 2 inhalations inhalation Q4H PRN alprazolam 0.5 mg PO DAILY PRN alprazolam 0.5 mg PO BEDTIME aspirin (Talia Low Dose Aspirin) 81 mg PO DAILY benzonatate 200 mg (2 x 100 mg) PO TID PRN brimonidine 0.2% 1 drp ophthalmic-Left BID doxycycline monohydrate 100 mg PO BID ezetimibe 10 mg PO BEDTIME fluconazole 150 mg PO Q3D 2 doses fluticasone furoate-vilanterol 100-25 mcg/dose (Breo Ellipta) 1 inh inhalation RDAILY guaifenesin 400 mg PO BID PRN 30 days hydrocodone-acetaminophen 5-325 mg 1 tab PO DAILY PRN 30 days irbesartan-hydrochlorothiazide 150-12.5 mg 1 tab PO DAILY Knee brace Bilateral knee braces (hinged knee braces) latanoprost 0.005% 1 drp ophthalmic (eye) BEDTIME nystatin 1 appl topical DAILY polyethylene glycol 3350 (Miralax) 17 grams PO BID PRN prednisone 10 mg PO DAILY prednisone 5 mg PO BEDTIME timolol maleate 0.5% 1 drp ophthalmic-Left BID vit C,C-Fz-evmbo-lutein-zeaxan 250-90-40-1 mg (PreserVision AREDS-2) 1 tab PO BID Tobacco use date assessed: 11/27/22 Fall risk assessment: 1 Fall in past year Last assessed Fall Risk: 11/27/22 HPI HDF ~ Post hospital discharge FU HPI Details Pt was seen in the ER on 11/20 c/o shortness of breath, cough, and sputum production. Labs showed renal function baseline, electrolyte levels WNL, liver enzymes slightly elevated with AST 43, ALT 45, troponin 9.4, BNP 50. UA was significant for 1+ leukocytes, 1+ blood, negative nitrites, positive urinary sediment and 4+ bacteria. COVID/flu test was negative. Chest xr was negative for acute cardiopulmonary process. Chest CT showed chronic T12 compression fracture which is stable, healing fracture to right posterior 10th and 11th rib s, bilateral apical pleural thickening and parenchymal scarring as well as atelectatic changes in right middle lobe and lingula as well as chronic scarring in both lung bases which appear stable. Blood cultures were negative. Pt was given 2g IV rocephin, 500mg zithromax, IV fluids, and duoneb. She was admitted due to acute hypoxemic respiratory failure secondary to sepsis related to clinical pneumonia/bronchitis and COPD exacerbation. Pt's breathing improved significantly. Her shortness of breath was likely due to deconditioning. Pt was seen by PT who recommended home PT. It was also recommended that pt go to outpatient pulmonary rehab, but pt refused. She was d/c with albuterol, 3 days of antibiotics, and a higher dose steroid. Pt reports ongoing productive cough. Will send guaifenesin. She reports doing well overall, though she does have KHAN. Will order repeat chest xr. Denies fever, chills, chest pain, and excessive shortness of breath. She is being seen by home PT and VNA. Pt has a incentive spirometer at home, and reports using it approx every her. Encouraged her to continue this [facility] Medical History CKD (chronic kidney disease) HTN (hypertension) Osteoarthritis Polymyalgia rheumatica Surgical History History of breast lump/mass excision S/P tonsillectomy and adenoidectomy Family History Father CVD (cardiovascular disease) Mother Cancer Social History Household Members: [facility] Do you presently have visiting nurse or other home services: Yes Alcohol intake: current Alcohol intake frequency: a few times a week Alcohol type: wine Patient Tobacco Use Status: Former Tobacco user Quit Date: quit 4-5 years ago e-Cigarette/Vaping Use: Never Used Second Hand Smoke Exposure: No service: No Current occupational status: retired Cognitive needs: No Hearing needs: No Vision needs: No Questionnaire Thrive Questionnaire Date Thrive assessed: 11/21/22 ABIMAEL-7 AMB Questionnaire ABIMAEL-7 Date ABIMAEL - 7 assessed: 08/27/21 Source: Developed by Drs. Saurabh Aquino, Tiffanie Walker, Sung Tomas and colleagues, with an educational maritza from [employer]. Review of Systems Const Reports as per HPI Physical exam (Primary Care) Vital Signs: Last Vital Signs Pulse 71 11/27/22 15:55 BP 134/68 11/27/22 15:55 Pulse Ox 98 11/27/22 15:55 Oxygen Delivery Method Room Air 11/27/22 15:55 Tobacco/Smoking Status: Tobacco use Status Tobacco use date assessed 11/27/22 11/27/22 16:02 Patient Tobacco Use Status Former Tobacco user 11/27/22 15:57 e-Cigarette/Vaping Use Never Used 11/27/22 15:57 Thrive Assessment: Date of Thrive Assessment Date Thrive assessed 11/21/22 11/27/22 15:57 Const General: cooperative Orientation/consciousness: patient oriented x3 Resp Effort & Inspection: normal respiratory effort Auscultation: clear to auscultation bilaterally Cardio Rate: regular rate Rhythm: regular rhythm Heart sounds: S1 normal heart sound present, S2 normal heart sound present and Murmur heart sound present systolic Neuro General: patient oriented x3 Extrem Right lower extremity: edema Details: pitting and 2+ Left lower extremity: edema Details: pitting and 2+ Psych Appearance: grossly normal Mental Status: mental status grossly normal Speech and movement: Normal speech and movement present Affect: normal affect Attitude: cooperative Thought process: Normal thought process present Thought content: Normal thought content present Insight: Good insight present (Psych) Judgement: Good judgement present (Psych) Assessment and Plan Assessment & Plan (1) Sepsis: Code(s): A41.9 - Sepsis, unspecified organism Plan: Labs ordered (2) Pneumonia: Code(s): J18.9 - Pneumonia, unspecified organism Plan: Labs ordered, guaifenesin sent Plan The patient agreed to the use of a medical office scheduler for this encounter. Scribed for ISAURO Aleman by [facility] medical office scheduler, on 11/27/2022 at 16:20 EST. Orders: Orders Complete Blood Count Auto Diff 11/27/22 A41.9 - Sepsis, unspecified organism, J18.9 - Pneumonia, unspecified organism B Type Natriuretic Peptide 11/27/22 A41.9 - Sepsis, unspecified organism, J18.9 - Pneumonia, unspecified organism Comprehensive Met. Panel 11/27/22 A41.9 - Sepsis, unspecified organism, J18.9 - Pneumonia, unspecified organism TSH reflex Free T4 11/27/22 A41.9 - Sepsis, unspecified organism, J18.9 - Pneumonia, unspecified organism Medications: New guaifenesin 400 mg PO BID PRN 60 tabs 0RF cough 30 days nystatin 1 appl topical DAILY 60 grams 1RF Refilled hydrocodone-acetaminophen 5-325 mg 1 tab PO DAILY PRN 30 tabs 0RF pain 30 days Discontinued polyethylene glycol 3350 17 grams PO BID 119 grams 0RF ezetimibe 10 mg PO DAILY 90 days 90 tabs 4RF prednisone 5 mg PO DAILY 90 tabs 1RF hydrocodone-acetaminophen 5-325 mg Discontinued Reason: Duplicate 1 tab PO DAILY 30 days PRN 30 tabs 0RF pain alprazolam 0.5 mg PO BID 30 days 60 tabs 0RF Coding Level of Care Code Est Pt Level 4 (41953) Diagnoses Sepsis A41.9 Pneumonia J18.9
[2022-11-27 15:55] VITALS: BP 134/68; PULSE 71; O2SAT 98
== END 2022-11-27 17:10 | disposition home or self-care (01) ==
PROVIDERS: PCP Nurse Practitioner Family; Visit Provider Nurse Practitioner Family
DX: A41.9 Sepsis, unspecified organism (principal); J18.9 Pneumonia, unspecified organism
CPT/HCPCS: 99214

== ENCOUNTER 2022-12-25 13:40 | Outpatient (AMB) | payer MEDICARE, SELFPAY ==
[2022-12-25 14:14] VITALS: BP 136/80; PULSE 51; O2SAT 96
--- NOTE | 2022-12-25 14:14 | A.OFFPC_ITS ---
Vital Signs 12/25/22 14:14 Height 5 ft 5 in BMI Reason not done Patient refused/unable BP 136/80 Blood Pressure Location Lt brachial Position Sitting Pulse 51 Pulse Source Pulse Oximeter Pulse Oximetry (%) 96 Oxygen Delivery Method Room Air Intake Visit Reasons: Persistent LE edema~ Allergies codeine [CODEINE] Allergy (Unknown, Verified 12/25/22 14:18) EXACERBATES HERNIA IN ESOPHAGUS? Sulfa (Sulfonamide Antibiotics) Allergy (Unknown, Verified 12/25/22 14:18) rash tramadol Adverse Reaction (Intermediate, Verified 12/25/22 14:18) Nausea amoxicillin Adverse Reaction (Unknown, Verified 12/25/22 14:18) Yeast infection rosuvastatin [Crestor] Adverse Reaction (Unknown, Verified 12/25/22 14:18) Worsened PMR Codeine Phosphate Allergy (Unknown, Uncoded 12/25/22 14:18) unknown Clotrimazole-Betamethasone Adverse Reaction (Unknown, Uncoded 12/25/22 14:18) Red blotches on skin Tobacco use date assessed: 12/25/22 Fall risk assessment: 1 Fall in past year Last assessed Fall Risk: 12/25/22 Dental Screening Dental Screen Date: 12/25/22 Did you have a dental visit in the last 12 months?: No Did you have a dental problem in the last 6 months where you did not have access to dental care?: No Was dental information given to patient?: Patient has dentist HPI Persistent LE edema~ HPI Details HTN: Blood pressure is stable, managed with irbesartan- hydrochlorothiazide 150-12.5mg. Denies chest pain, shortness of breath, headache, dizziness, and blurred vision. Pt reports ongoing edema to her BLE. Will increase hydrochlorothiazide from 12.5mg to 25mg. Pt has not had her labs drawn yet, encouraged her to do so today. [facility] Medical History CKD (chronic kidney disease) HTN (hypertension) Osteoarthritis Polymyalgia rheumatica Surgical History History of breast lump/mass excision S/P tonsillectomy and adenoidectomy Family History Father CVD (cardiovascular disease) Mother Cancer Social History Household Members: Family Housing: Condominium Do you presently have visiting nurse or other home services: Yes Alcohol intake: current Alcohol intake frequency: a few times a week Alcohol type: wine Patient Tobacco Use Status: Former Tobacco user Quit Date: quit 4-5 years ago e-Cigarette/Vaping Use: Never Used Second Hand Smoke Exposure: No service: No Current occupational status: retired Cognitive needs: No Hearing needs: No Vision needs: No Questionnaire Thrive Questionnaire Date Thrive assessed: 11/21/22 ABIMAEL-7 AMB Questionnaire ABIMAEL-7 Date ABIMAEL - 7 assessed: 08/27/21 Source: Developed by Drs. Saurabh Aquino, Tiffanie Walker, Sung Tomas and colleagues, with an educational maritza from [employer]. Review of Systems Const Reports as per HPI Physical exam (Primary Care) Vital Signs: Last Vital Signs Pulse 51 12/25/22 14:14 BP 136/80 12/25/22 14:14 Pulse Ox 96 12/25/22 14:14 Oxygen Delivery Method Room Air 12/25/22 14:14 Tobacco/Smoking Status: Tobacco use Status Tobacco use date assessed 12/25/22 12/25/22 14:24 Patient Tobacco Use Status Former Tobacco user 12/25/22 14:24 e-Cigarette/Vaping Use Never Used 12/25/22 14:24 Thrive Assessment: Date of Thrive Assessment Date Thrive assessed 11/21/22 12/25/22 14:24 Const Other: in wheelchair General: cooperative Orientation/consciousness: patient oriented x3 Limitations: wheelchair Resp Effort & Inspection: normal respiratory effort Auscultation: clear to auscultation bilaterally Cardio Rate: regular rate Rhythm: regular rhythm Heart sounds: S1 normal heart sound present, S2 normal heart sound present and Murmur heart sound present systolic Neuro General: patient oriented x3 Extrem Right lower extremity: edema Details: pitting and 1+ Left lower extremity: edema Details: pitting and 1+ Psych Appearance: grossly normal Mental Status: mental status grossly normal Speech and movement: Normal speech and movement present Affect: normal affect Attitude: cooperative Thought process: Normal thought process present Thought content: Normal thought content present Insight: Good insight present (Psych) Judgement: Good judgement present (Psych) Assessment and Plan Assessment & Plan (1) Edema: Code(s): R60.9 - Edema, unspecified (2) HTN (hypertension): Code(s): I10 - Essential (primary) hypertension Plan The patient agreed to the use of a family practice medical doctor for this encounter. Scribed for LILIA Aleman by [facility] family practice medical doctor, on 12/25/2022 at 14:30 EST. Medications: New hydrochlorothiazide may take with irbesartan-hctz combo 12.5 mg PO DAILY 30 tabs 0RF 30 days Coding Level of Care Code Est Pt Level 3 (20652) Diagnoses Edema R60.9 HTN (hypertension) I10
== END 2022-12-25 15:21 | disposition home or self-care (01) ==
PROVIDERS: PCP Nurse Practitioner Family; Visit Provider Nurse Practitioner Family
DX: R60.9 Edema, unspecified (principal); I10 Essential (primary) hypertension
CPT/HCPCS: 99213

== ENCOUNTER 2022-12-25 14:45 | Outpatient (REF) | payer MEDICARE, SELFPAY ==
[2022-12-25 16:09] LABS: MANUAL DIFF FLAG NO
[2022-12-25 16:31] LABS: Basophils Absolute Auto 0.1 X10*3/uL (0.0-0.2); Basophils Percent Auto 0.3 % (0-2); Eosinophils Absolute Auto 0.2 X10*3/uL (0.0-0.4); Eosinophils Percent Auto 1.2 % (0-4); Hematocrit 35.2 % (37.0-47.0); Hemoglobin 11.2 g/dl (12.0-16.0); Imm Gran Abs Auto 0.12 X10*3/uL (0.00-0.03); Imm Gran Pct Auto 0.7 % (0.0-0.4); Lymphocytes Absolute Auto 3.2 X10*3/uL (1.2-4.9); Lymphocytes Percent Auto 19.8 % (20-40); Mean Corpuscular HGB Conc 31.8 g/dl (31.0-35.0); Mean Corpuscular Hemoglobin 29.4 pg (27.0-33.0); Mean Corpuscular Volume 92.4 fL (80.0-98.0); Monocytes Percent Auto 6.2 % (2-11); Neutrophils Absolute Auto 11.5 x10*3/uL (2.0-8.3); Neutrophils Percent Auto 71.8 % (45-73); Platelet Count 406 X10*3/uL (160-400); Red Blood Count 3.81 X10*6/uL (4.20-5.50); Red Cell Distribution Width 14.9 % (11.0-16.0); White Blood Count 16.1 X10*3/uL (4.8-10.8)
[2022-12-25 16:37] LABS: Alanine Aminotransferase 13 U/L (0-31); Albumin Level 3.5 g/dL (3.5-5.0); Alkaline Phosphatase 99 U/L (39-117); Anion Gap 11 (12-20); Aspartate Amino Transferase 12 U/L (5-31); Bilirubin Total 0.4 mg/dL (0.0-1.0); Blood Urea Nitrogen 28 mg/dL (9-16); Calcium 9.2 mg/dL (8.4-10.2); Carbon Dioxide 26 mmol/L (22-29); Chloride 108 mmol/L (96-108); Estimated Glomerular Filt Rate 27; Glucose Random 90 mg/dL (60-115); Potassium 4.2 mmol/L (3.3-5.1); Sodium 141 mmol/L (135-145); Total Protein 6.7 g/dL (6.5-8.0)
[2022-12-25 16:38] LABS: B Type Natriuretic Peptide 58 pg/mL (<100)
[2022-12-25 16:56] LABS: TSH reflex Free T4 0.74 uIU/mL (0.32-4.0)
== END 2022-12-25 14:46 | disposition home or self-care (01) ==
LOC: HO.HMGCLDS 14:45
PROVIDERS: PCP Nurse Practitioner Family; Visit Provider Nurse Practitioner Family
DX: A41.9 Sepsis, unspecified organism (principal); J18.9 Pneumonia, unspecified organism; I10 Essential (primary) hypertension; F41.9 Anxiety disorder, unspecified
CPT/HCPCS: 36415; 80053; 83880; 84443; 85025

== ENCOUNTER 2023-02-08 09:17 | Outpatient (AMB) | payer MEDICARE, SELFPAY ==
[2023-02-08 10:34] VITALS: BP 130/76; PULSE 71; TEMP 36.4; O2SAT 95
--- NOTE | 2023-02-08 10:34 | AM.OFFWIN_ITS ---
Intake Vital Signs 02/08/23 10:34 Height 5 ft 5 in BMI Reason not done Patient refused/unable BP 130/76 Blood Pressure Location Lt brachial Position Sitting Pulse 71 Pulse Source Pulse Oximeter Temp 97.5 F Temp Source Temporal Artery Scan Pulse Oximetry (%) 95 Oxygen Delivery Method Room Air Intake Visit Reasons: EP Pneumonia symptoms Intake Note: pt is here for pnemonia symptoms Patient Tobacco Use Status: Former Tobacco user Quit Date: quit 4-5 years ago Allergies codeine [CODEINE] Allergy (Unknown, Verified 02/08/23 10:34) EXACERBATES HERNIA IN ESOPHAGUS? Sulfa (Sulfonamide Antibiotics) Allergy (Unknown, Verified 02/08/23 10:34) rash tramadol Adverse Reaction (Intermediate, Verified 02/08/23 10:34) Nausea amoxicillin Adverse Reaction (Unknown, Verified 02/08/23 10:34) Yeast infection rosuvastatin [Crestor] Adverse Reaction (Unknown, Verified 02/08/23 10:34) Worsened PMR Codeine Phosphate Allergy (Unknown, Uncoded 12/25/22 14:18) unknown Clotrimazole-Betamethasone Adverse Reaction (Unknown, Uncoded 12/25/22 14:18) Red blotches on skin Do you need a note to return to daycare/school/sports/work: Yes HPI EP Pneumonia symptoms HPI Details Patient is an 87-year-old female who comes to the walk-in clinic complaining of persistent cough after developing nasal congestion, postnasal drip and other upper respiratory infection symptoms. She is very worried about developing pneumonia, as this happen to her in the past with what was initially at an upper viral infection. 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 She has no current shortness of breath or chest discomfort, fever or chills, nausea vomiting or diarrhea, mal aise or myalgias, headache or dizziness, weakness, sore throat, or other current associated symptoms. She did not do COVID testing at home. [facility] Medical History CKD (chronic kidney disease) HTN (hypertension) Osteoarthritis Polymyalgia rheumatica Surgical History History of breast lump/mass excision S/P tonsillectomy and adenoidectomy Family History Father CVD (cardiovascular disease) Mother Cancer [facility]hold Members: [facility] Do you presently have visiting nurse or other home services: Yes Alcohol intake: current Alcohol intake frequency: a few times a week Alcohol type: wine Patient Tobacco Use Status: Former Tobacco user Quit Date: quit 4-5 years ago e-Cigarette/Vaping Use: Never Used Second Hand Smoke Exposure: No service: No Current occupational status: retired Cognitive needs: No Hearing needs: No Vision needs: No Review of Systems Const All systems reviewed & are unremarkable except as noted in HPI and below Physical Exam Vital Signs: Last Vital Signs Temp 97.5 F 02/08/23 10:34 Pulse 71 02/08/23 10:34 BP 130/76 02/08/23 10:34 Pulse Ox 95 02/08/23 10:34 Oxygen Delivery Method Room Air 02/08/23 10:34 Const General: cooperative, comfortable, no acute distress, alert, awake, Physically active and well groomed; No anxious, diaphoretic, intoxicated appearing, poor hygiene or tired appearing Nutritional Appearance: average body habitus Orientation/consciousness: oriented to person Limitations: no limitations HEENT Head: Yes normal to inspection, Yes normocephalic and Yes atraumatic Ears: hearing grossly normal bilaterally, external ears normal, EAC's normal and TM abnormal with fluid behind the TM General nose exam: Normal external nose present, Normal nares present, No nasal polyps present, Normal nasal mucous membranes and turbinates present, Normal septum present and No nasal discharge present Face and sinus: Yes normal facial exam, Yes sinuses nontender and Yes face symmetric Mouth: Normal oral and palatal mucosa present, lip normal and tongue normal Throat: Yes posterior oropharynx normal, Yes abnormal tonsil (mildly erythematous bilaterally), No peritonsillar mass, No postnasal drainage, No uvular edema and No cobblestoning Eyes General: appearance normal, both eyes and all related structures Neck Neck: Yes normal visual inspection, Yes no lymphadenopathy, Yes trachea midline, Yes supple and No anterior neck swelling Chest Chest palpation & inspection: normal palpation of entire chest wall Resp Effort & Inspection: normal respiratory effort, able to speak in complete sentences, no audible wheezes, no cough, no grunting, not labored, no nasal flaring, no retractions and symmetric chest movement Auscultation: clear to auscultation bilaterally, no crackles, no rales, no rhonchi, no wheezes, lung sounds not diminished and No rub present Cardio Palpation: normal PMI Rate: regular rate Rhythm: regular rhythm Heart sounds: S1 normal heart sound present and S2 normal heart sound present Skin Other: Good color, warm and dry Neuro General: oriented to person Psych Appearance: grossly normal Mental Status: mental status grossly normal Speech and movement: Normal speech and movement present Affect: normal affect Attitude: cooperative Thought process: Normal thought process present Insight: Good insight present (Psych) Judgement: Good judgement present (Psych) Assessment & Plan Assessment & Plan (1) Viral syndrome: Code(s): B34.9 - Viral infection, unspecified Plan: Patient is an 87-year-old female who comes to the walk-in clinic with upper respiratory infection symptoms. She is very worried about developing pneumonia, as this happen to her in the past with what was initially at an upper viral infection. I did do a chest x-ray today to assuage her concerns, which was negative for acute cardiopulmonary disease, but does show chronic atelectasis. 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 She has no current shortness of breath or chest discomfort, and her cough is mostly nonproductive. We discussed a trial of Tessalon Perles, as well as Augmentin, as her middle ears do have some clear fluid, which is likely the underlying cause of her cough. She did not do COVID testing at home, so we swabbed her today and her rapid COVID test is pending as well as her respiratory panel to rule out flu COVID and RSV. She feel she felt much better knowing that her chest x-ray was normal, and knows to follow up there was if her symptoms persist or worsen. Orders: Orders SARS-CoV2/FLU/RSV 02/08/23 R05.9 - Cough, unspecified XR chest 2V 02/08/23 R05.9 - Cough, unspecified BinaxNOW Covid-19 Ag 02/08/23 Z20.822 - Contact with and (suspected) exposure to COVID-19 Medications: New benzonatate 200 mg PO BID-TID PRN 30 caps 0RF cough azithromycin take 500 mg today (day 1), then 250 mg for 4 days (days 2-5) PO 6 tabs 0RF Coding Level of Care Code New Pt Level 4 (38660) Diagnoses Viral syndrome B34.9
== END 2023-02-08 12:26 | disposition home or self-care (01) ==
PROVIDERS: PCP Nurse Practitioner Family; Visit Provider Physician Assistant Medical
DX: B34.9 Viral infection, unspecified (principal)
CPT/HCPCS: 99204

== ENCOUNTER 2023-02-08 11:43 | Outpatient (REF) | payer MEDICARE, SELFPAY ==
--- NOTE | ~2023-02-08 | XR_ITS ---
EXAMINATION: XR CHEST CLINICAL INFORMATION: Cough COMPARISON: Previous chest x-ray November 2022 TECHNIQUE: 2 views of the chest were obtained. FINDINGS: The cardiac and mediastinal contours are stable. There is scarring or subsegmental atelectasis at the lung bases. The lungs are otherwise clear. No pleural effusion or pneumothorax. Old-appearing T12 vertebral body fracture. Degenerative changes of the spine and scoliosis. XR/XR chest 2V IMPRESSION: Bilateral scarring or subsegmental atelectasis. No evidence of pneumonia.
[2023-02-08 12:24] LABS: Binax Internal Control QC Valid; Binax Now Covid-19 Ag Negative (Negative); Binax Performed by: HO.BONILM
== END 2023-02-08 11:44 | disposition home or self-care (01) ==
LOC: HO.HMGCX 11:43
PROVIDERS: PCP Nurse Practitioner Family; Visit Provider Physician Assistant Medical
DX: Z13.89 Encounter for screening for other disorder (principal)
CPT/HCPCS: 71046; 87811; C9803

== ENCOUNTER 2023-02-08 11:45 | Outpatient (REF) | payer MEDICARE, SELFPAY ==
[2023-02-08 15:03] LABS: Influenza A PCR NEGATIVE (Negative); Influenza B PCR NEGATIVE (Negative); Resp Syncy Virus RNA Qual PCR NEGATIVE (Negative); SARS COV2 PCR INHOUSE NEGATIVE (Negative)
== END 2023-02-08 11:46 | disposition home or self-care (01) ==
LOC: HO.LAB 11:45
PROVIDERS: Visit Provider Physician Assistant Medical
DX: R05.9 Cough, unspecified (principal); Z20.822 Contact with and (suspected) exposure to COVID-19
CPT/HCPCS: 0241U; 71046; 87811; C9803

== ENCOUNTER 2023-03-08 15:01 | Emergency (ER) | payer MEDICARE, SELFPAY ==
--- NOTE | ~2023-03-08 | XR_ITS ---
EXAMINATION: XR CHEST CLINICAL INFORMATION: Cough COMPARISON: Chest x-ray on 02/08/2023 TECHNIQUE: Frontal view of the chest was obtained. FINDINGS: The cardiac silhouette is normal. There is mild diffuse bronchial wall thickening. There are no areas of consolidation. There are no pleural effusions or pneumothoraces. The bones and soft tissues are unremarkable for the patient's age. XR/XR chest 1V IMPRESSION: Bronchial wall thickening may be infectious and/or inflammatory in etiology.
[2023-03-08 15:07] VITALS: BP 158/94; PULSE 100; O2SAT 95
[2023-03-08 15:15] VITALS: BP 181/65; PULSE 92; RESP 22; TEMP 37.5; O2SAT 96; BMI 33.3
--- NOTE | 2023-03-08 15:21 | PC.NURSE ---
Pt is alert and oriented. Reports productive cough yesterday but dry today. Also reports SOB with exertion, weakness and chills. BLE edema noted, pitting +2-3, sates normal for pt x a couple months. Breathing sl labored
[2023-03-08 16:08] VITALS: BP 149/47; PULSE 85; RESP 20; TEMP 36.8; O2SAT 95
--- NOTE | 2023-03-08 16:14 | ED_ITS ---
HPI - SOB/Dyspnea General Chief Complaint: Dyspnea Stated Complaint: DIFF BREATHING CANNOT STOP COUGHING Time Seen by Provider: 03/08/23 16:13 Source: patient Mode of arrival: EMS Limitations: no limitations History of Present Illness HPI Narrative: Patient with no significant lung issues in the past no coronary disease does have history of hypertension patient's son was sick for last 3 days with upper respiratory symptoms getting better now today patient comes as she been sick since yesterday with coughing with feeling chills and low-grade fever subjective no chest pain or palpitation patient feeling too weak does have a clear nasal discharge Related Data Home Medications Medication Instructions Recorded Confirmed brimonidine 0.2 % eye drops 1 drp ophthalmic-Left BID 08/27/21 11/20/22 latanoprost 0.005 % eye drops 1 drp ophthalmic (eye) BEDTIME 08/27/21 11/20/22 timolol maleate 0.5 % eye drops 1 drp ophthalmic-Left BID 08/27/21 11/20/22 aspirin 81 mg tablet,delayed 81 mg PO DAILY 01/08/22 11/20/22 release (Talia Low Dose Aspirin) vit C 250 mg-E 90 mg-zinc 40 1 tab PO BID 01/08/22 11/20/22 mg-copper 1 vp-[id number]-ymywgi chew tablet (PreserVision AREDS-2) ezetimibe 10 mg tablet 10 mg PO BEDTIME 11/20/22 11/20/22 polyethylene glycol 3350 17 17 g PO BID PRN Constipation 11/20/22 11/20/22 gram/dose oral powder (Miralax) prednisone 5 mg tablet 5 mg PO BEDTIME 11/20/22 11/20/22 Previous Rx's Medication Instructions Recorded Knee brace #2 ea 08/27/21 irbesartan 150 1 tab PO DAILY #90 tabs 11/07/22 mg-hydrochlorothiazide 12.5 mg tablet hydrocodone 5 mg-acetaminophen 325 1 tab PO DAILY PRN pain 30 days 11/27/22 mg tablet #30 tabs nystatin 100,000 unit/gram topical 1 appl topical DAILY #60 grams 11/27/22 powder hydrochlorothiazide 12.5 mg tablet 12.5 mg PO DAILY #90 tabs 12/26/22 azithromycin 250 mg tablet See Rx Instructions PO .COMPLEX #6 02/08/23 tabs benzonatate 200 mg capsule 200 mg PO BID-TID PRN cough #30 02/08/23 caps alprazolam 0.5 mg tablet 0.5 mg PO DAILY PRN Anxiety #30 03/06/23 tabs Allergies Allergy/AdvReac Type Severity Reaction Status Date / Time Sulfa (Sulfonamide Allergy Unknown rash Verified 02/08/23 10:34 Antibiotics) tramadol AdvReac Intermediate Nausea Verified 02/08/23 10:34 amoxicillin AdvReac Unknown Yeast Verified 02/08/23 10:34 infection rosuvastatin [Crestor] AdvReac Unknown Worsened Verified 02/08/23 10:34 PMR Codeine Phosphate Allergy Unknown unknown Uncoded 12/25/22 14:18 Clotrimazole-Betamethasone AdvReac Unknown Red Uncoded 12/25/22 14:18 blotches on skin Review of Systems 2 Review of Systems: Yes all other systems are reviewed and are negative [facility] Past Medical History Medical History CKD (chronic kidney disease) HTN (hypertension) Osteoarthritis Polymyalgia rheumatica Surgical History History of breast lump/mass excision S/P tonsillectomy and adenoidectomy Family History Family History Father CVD (cardiovascular disease) Mother Cancer Social History Social History Household Members: [facility] Do you presently have visiting nurse or other home services: Yes Alcohol intake: never Patient Tobacco Use Status: Former Tobacco user Quit Date: quit 4-5 years ago Smoked in Last 30 Days: No e-Cigarette/Vaping Use: Never Used Second Hand Smoke Exposure: No Use of substances other than those prescribed or required for medical reasons: No Advance Directives: No Advance Directives Information Provided: No service: No Current occupational status: retired Cognitive needs: No Hearing needs: No Vision needs: No Physical Exam 2 Vital Signs: Vital Signs: Last Vital Signs Temp 102.2 F H 03/08/23 16:35 Pulse 85 03/08/23 16:08 Resp 20 03/08/23 16:08 BP 149/47 H 03/08/23 16:08 Pulse Ox 95 03/08/23 16:08 O2 Del Method Room Air 03/08/23 16:08 BMI result Body Mass Index 33.3 Appearance: Alert. Oriented X3. No acute distress. Eyes: No pallor or icterus ENT: Pharynx normal. Oral Mucosa moist Neck: Normal inspection. Neck supple. CVS: Normal heart rate and rhythm. Pulses normal. Respiratory: No respiratory distress. Equal air entry bilateral, no wheezing/rales/rhonchi frequent dry cough Abdomen: Soft and nontender. Bowel sounds are present, Skin: Skin warm and dry. Normal skin color. Normal skin turgor. Extremities: 2+ lower extremity edema. No calf tenderness Neuro: Oriented X 3. No motor deficit. Medications Administered Discontinued Medications Generic Name Dose Route Start Last Admin Trade Name Freq PRN Reason Stop Dose Admin Acetaminophen 650 mg 03/08/23 16:29 03/08/23 16:38 Acetaminophen 325 Mg Tablet PO 03/08/23 16:30 650 mg ONCE ONE Administration Guaifenesin/Codeine Phosphate 10 ml 03/08/23 16:29 03/08/23 16:39 Guaifen/Codeine Sf 200/20/10ml 10 Ml Liquid PO 03/08/23 16:30 10 ml ONCE ONE Administration Medical Decision Making Medical Decision Making [facility] Narrative: Patient with polymyalgia rheumatic on 5 mg of prednisone chronically came with increased cough and shortness of breath saturating 96% on room air workup showed patient has COVID positive, chest x-ray negative for pneumonia will discharge patient home on cough syrup codeine, no Paxlovid as patient has GFR less than 30 Differential Diagnosis Differential Diagnoses: The differential diagnosis associated with the presentation includes Atypical pneumonia/viral syndrome/COVID/RSV Admission/Observation Consideration of admission/observation: Escalation of care including admission/observation considered Lab Data [facility] Lab Attestation statement: I reviewed the patient's lab results. 03/08/23 16:42 03/08/23 17:17 Labs: Lab Results 03/08/23 03/08/23 03/08/23 Range/Units 16:42 16:46 17:17 WBC 14.9 H (4.8-10.8) X10*3/uL RBC 4.01 L (4.20-5.50) X10*6/uL Hgb 11.9 L (12.0-16.0) g/dl Hct 36.8 L (37.0-47.0) % MCV 91.8 (80.0-98.0) fL MCH 29.7 (27.0-33.0) pg MCHC 32.3 (31.0-35.0) g/dl RDW 14.5 (11.0-16.0) % Plt Count 385 (160-400) X10*3/uL MPV 9.4 (9.4-12.3) fL Immature Gran % (Auto) 0.7 H (0.0-0.4) % Neut % (Auto) 87.0 H (45-73) % Lymph % (Auto) 4.8 L (20-40) % Newberry % (Auto) 6.7 (2-11) % Eos % (Auto) 0.5 (0-4) % Baso % (Auto) 0.3 (0-2) % Lymph # (Auto) 0.7 L (1.2-4.9) X10*3/uL Newberry # (Auto) 1.0 (0.1-1.2) X10*3/uL Eos # (Auto) 0.1 (0.0-0.4) X10*3/uL Baso # (Auto) 0.1 (0.0-0.2) X10*3/uL Abs Immat Gran (auto) 0.10 H (0.00-0.03) X10*3/uL Absolute Neuts (auto) 13.0 H (2.0-8.3) x10*3/uL Absolute Nucleated RBC 0.000 (0.0-0.012) X10*3/uL Nucleated RBC % (auto) 0.0 (0.0-0.2) /100WBC Sodium 138 (135-145) mmol/L Potassium 3.9 (3.3-5.1) mmol/L Chloride 105 (96-108) mmol/L Carbon Dioxide 22 (22-29) mmol/L Anion Gap 15 (12-20) BUN 24 H (9-16) mg/dL Creatinine 1.82 H (0.5-1.4) mg/dL Estim Creat Clear Calc 24.2 Estimated GFR 26 Random Glucose 127 H (60-115) mg/dL Calcium 9.1 (8.4-10.2) mg/dL Total Bilirubin 0.5 (0.0-1.0) mg/dL AST 12 (5-31) U/L ALT 10 (0-31) U/L Alkaline Phosphatase 98 (39-117) U/L B-Natriuretic Peptide 118 H (<100) pg/mL Total Protein 6.7 (6.5-8.0) g/dL Albumin 3.6 (3.5-5.0) g/dL Influenza Type A (PCR) NEGATIVE (Negative) Influenza Type B (PCR) NEGATIVE (Negative) RSV RNA Qual (PCR) NEGATIVE (Negative) SARS-CoV-2 RNA (RT-PCR) POSITIVE A (Negative) Independent Interpretation I performed an independent interpretation of an: Plain X-Ray Radiology Impression Discussion of test interpretation with radiology: I have reviewed the radiologist's reading. Radiologist Impression: XR/XR chest 1V IMPRESSION: Bronchial wall thickening may be infectious and/or inflammatory in etiology. Discharge Plan Discharge Clinical Impression: COVID-19 Patient Disposition: Home, Self-Care Instructions: COVID-19 (Coronavirus Disease 2019) (ED) Prescriptions: No Action irbesartan-hydrochlorothiazide 150-12.5 mg tablet 1 tab PO DAILY Qty: 90 1RF hydrochlorothiazide 12.5 mg tablet 12.5 mg PO DAILY Qty: 90 0RF Rx Instructions: may take with irbesartan-hctz combo alprazolam 0.5 mg tablet 0.5 mg PO DAILY PRN (Reason: Anxiety) Qty: 30 1RF prednisone 5 mg tablet 5 mg PO BEDTIME Hold Instructions: Resume on 11/29/22. polyethylene glycol 3350 [Miralax] 17 gram/dose powder 17 g PO BID PRN (Reason: Constipation) ezetimibe 10 mg tablet 10 mg PO BEDTIME timolol maleate 0.5 % drops 1 drp ophthalmic-Left BID brimonidine 0.2 % drops 1 drp ophthalmic-Left BID latanoprost 0.005 % drops 1 drp ophthalmic (eye) BEDTIME (DME) Knee brace Misc See Rx Instructions .Route Qty: 2 0RF Rx Instructions: Bilateral knee braces (hinged knee braces) benzonatate 200 mg capsule 200 mg PO BID-TID PRN (Reason: cough) Qty: 30 0RF azithromycin 250 mg tablet See Rx Instructions PO .COMPLEX Qty: 6 0RF Rx Instructions: take 500 mg today (day 1), then 250 mg for 4 days (days 2-5) PO aspirin [Talia Low Dose Aspirin] 81 mg tablet,delayed release (DR/EC) 81 mg PO DAILY PreserVision AREDS-2 250-90-40-1 mg tablet,chewable 1 tab PO BID nystatin 100,000 unit/gram powder 1 appl topical DAILY Qty: 60 1RF hydrocodone-acetaminophen 5-325 mg tablet 1 tab PO DAILY PRN (Reason: pain) 30 Days Qty: 30 0RF
[2023-03-08 16:35] VITALS: TEMP 39
[2023-03-08] MEDS: Acetaminophen 325 MG TABLET 650 MG PO (16:38)
[2023-03-08] MEDS: guaiFEN/Codeine SF 200/20/10ML 10 ML LIQUID PO (16:39)
[2023-03-08 16:48] LABS: MANUAL DIFF FLAG NO
[2023-03-08 16:50] LABS: Basophils Absolute Auto 0.1 X10*3/uL (0.0-0.2); Basophils Percent Auto 0.3 % (0-2); Eosinophils Absolute Auto 0.1 X10*3/uL (0.0-0.4); Eosinophils Percent Auto 0.5 % (0-4); Hematocrit 36.8 % (37.0-47.0); Hemoglobin 11.9 g/dl (12.0-16.0); Imm Gran Pct Auto 0.7 % (0.0-0.4); Lymphocytes Absolute Auto 0.7 X10*3/uL (1.2-4.9); Lymphocytes Percent Auto 4.8 % (20-40); Mean Corpuscular HGB Conc 32.3 g/dl (31.0-35.0); Mean Corpuscular Hemoglobin 29.7 pg (27.0-33.0); Mean Corpuscular Volume 91.8 fL (80.0-98.0); Mean Platelet Volume 9.4 fL (9.4-12.3); Monocytes Percent Auto 6.7 % (2-11); Platelet Count 385 X10*3/uL (160-400); Red Blood Count 4.01 X10*6/uL (4.20-5.50); Red Cell Distribution Width 14.5 % (11.0-16.0); White Blood Count 14.9 X10*3/uL (4.8-10.8)
[2023-03-08 17:29] LABS: Influenza A PCR NEGATIVE (Negative); Influenza B PCR NEGATIVE (Negative); Resp Syncy Virus RNA Qual PCR NEGATIVE (Negative); SARS COV2 PCR INHOUSE POSITIVE (Negative)
[2023-03-08 17:53] LABS: Alanine Aminotransferase 10 U/L (0-31); Albumin Level 3.6 g/dL (3.5-5.0); Alkaline Phosphatase 98 U/L (39-117); Anion Gap 15 (12-20); Aspartate Amino Transferase 12 U/L (5-31); Bilirubin Total 0.5 mg/dL (0.0-1.0); Blood Urea Nitrogen 24 mg/dL (9-16); Calcium 9.1 mg/dL (8.4-10.2); Carbon Dioxide 22 mmol/L (22-29); Chloride 105 mmol/L (96-108); Creatinine Clr Calc Pharmacy 24.2; Estimated Glomerular Filt Rate 26; Glucose Random 127 mg/dL (60-115); Potassium 3.9 mmol/L (3.3-5.1); Sodium 138 mmol/L (135-145); Total Protein 6.7 g/dL (6.5-8.0)
[2023-03-08 17:58] LABS: B Type Natriuretic Peptide 118 pg/mL (<100)
--- NOTE | 2023-03-08 18:44 | PC.NURSE ---
Awaits ambulatory pulse ox prior to d/c
== END 2023-03-08 19:32 | disposition home or self-care (01) ==
PROVIDERS: Emergency Provider Internal Medicine
DX: U07.1 COVID-19 (principal); R06.02 Shortness of breath; Z87.891 Personal history of nicotine dependence
CPT/HCPCS: 0241U; 36415; 71045; 80053; 83880; 85025; 99283; 99284

== ENCOUNTER 2023-04-14 14:54 | Outpatient (AMB) | payer MEDICARE, SELFPAY ==
--- NOTE | 2023-04-14 15:02 | A.OFFPC_ITS ---
Vital Signs 04/14/23 15:06 Height 5 ft 5 in Weight 220 lb BMI 36.6 BP 124/78 Blood Pressure Location Lt brachial Position Sitting Pulse 76 Pulse Source Pulse Oximeter Pulse Oximetry (%) 98 Oxygen Delivery Method Room Air Intake Visit Reasons: 3 month fu Intake Note: Patient here to follow up on Edema. Allergies Sulfa (Sulfonamide Antibiotics) Allergy (Unknown, Verified 04/14/23 15:07) rash tramadol Adverse Reaction (Intermediate, Verified 04/14/23 15:07) Nausea amoxicillin Adverse Reaction (Unknown, Verified 04/14/23 15:07) Yeast infection rosuvastatin [Crestor] Adverse Reaction (Unknown, Verified 04/14/23 15:07) Worsened PMR Clotrimazole-Betamethasone Adverse Reaction (Unknown, Uncoded 04/14/23 15:07) Red blotches on skin Medication List - Last Reconciled 04/14/23 by Seng Dalton, AGRICULTURAL TECHNICIAN-BC alprazolam 0.5 mg PO DAILY PRN aspirin (Talia Low Dose Aspirin) 81 mg PO DAILY benzonatate 200 mg PO BID-TID PRN brimonidine 0.2% 1 drp ophthalmic-Left BID ezetimibe 10 mg PO BEDTIME hydrochlorothiazide 12.5 mg PO DAILY hydrocodone-acetaminophen 5-325 mg 1 tab PO DAILY PRN 30 days irbesartan-hydrochlorothiazide 150-12.5 mg 1 tab PO DAILY Knee brace Bilateral knee braces (hinged knee braces) latanoprost 0.005% 1 drp ophthalmic (eye) BEDTIME nystatin 1 appl topical DAILY polyethylene glycol 3350 (Miralax) 17 grams PO BID PRN prednisone 5 mg PO BEDTIME timolol maleate 0.5% 1 drp ophthalmic-Left BID vit C,U-Ip-mjltg-lutein-zeaxan 250-90-40-1 mg (PreserVision AREDS-2) 1 tab PO BID Tobacco use date assessed: 04/14/23 Fall risk assessment: 1 Fall in past year Last assessed Fall Risk: 04/14/23 Dental Screening Dental Screen Date: 04/14/23 Did you have a dental visit in the last 12 months?: No Did you have a dental problem in the last 6 months where you did not have access to dental care?: No Was dental information given to patient?: Patient has dentist HPI 3 month fu HPI Details HTN: Blood pressure is managed with irbesartan-hydrochlorothiazide 150mg-12.5mg. Pt reports intermittent dizziness and noticing her systolic BP in the 80s. Will decrease irbesartan from 150mg to 75mg (stopping combo med). Denies chest pain, shortness of breath, headache, and blurred vision. Pt does have ongoing edema. Informed pt that she can take 2 tabs of hydrochlorothiazide when her edema is worse. Pt had COVID in March. She reports doing much better. [facility] Medical History CKD (chronic kidney disease) HTN (hypertension) Osteoarthritis Polymyalgia rheumatica Surgical History History of breast lump/mass excision S/P tonsillectomy and adenoidectomy Family History Father CVD (cardiovascular disease) Mother Cancer Social History Household Members: Family Housing: Condominium Do you presently have visiting nurse or other home services: Yes Alcohol intake: never Patient Tobacco Use Status: Former Tobacco user Quit Date: quit 4-5 years ago e-Cigarette/Vaping Use: Never Used Second Hand Smoke Exposure: No service: No Current occupational status: retired Cognitive needs: No Hearing needs: No Vision needs: No Questionnaire Thrive Questionnaire Date Thrive assessed: 11/21/22 AUDIT C Alcohol Use Questionnaire (AUDIT-C) 1. How often do you have a drink containing alcohol?: Never 3. How often do you have six or more drinks on one occasion?: Never Total Score: 0 Score Reviewed/Action Taken: No ABIMAEL-7 AMB Questionnaire ABIMAEL-7 Date ABIMAEL - 7 assessed: 08/27/21 Source: Developed by Drs. Saurabh Aquino, Tiffanie Walker, Sung Tomas and colleagues, with an educational maritza from [employer]. Review of Systems Const Reports as per HPI Physical exam (Primary Care) Vital Signs: Last Vital Signs Pulse 76 04/14/23 15:06 BP 124/78 04/14/23 15:06 Pulse Ox 98 04/14/23 15:06 Oxygen Delivery Method Room Air 04/14/23 15:06 BMI result Body Mass Index 36.6 Tobacco/Smoking Status: Tobacco use Status Tobacco use date assessed 04/14/23 04/14/23 15:15 Patient Tobacco Use Status Former Tobacco user 04/14/23 15:06 e-Cigarette/Vaping Use Never Used 04/14/23 15:06 Thrive Assessment: Date of Thrive Assessment Date Thrive assessed 11/21/22 04/14/23 15:06 Const General: cooperative Nutritional Appearance: obese Orientation/consciousness: patient oriented x3 Limitations: wheelchair Resp Effort & Inspection: normal respiratory effort Auscultation: clear to auscultation bilaterally Cardio Rate: regular rate Rhythm: regular rhythm Heart sounds: S1 normal heart sound present, S2 normal heart sound present and Murmur heart sound present systolic Neuro General: patient oriented x3 Extrem Right lower extremity: edema Details: pitting and 1+ Left lower extremity: edema Details: pitting and 1+ Psych Appearance: grossly normal Mental Status: mental status grossly normal Speech and movement: Normal speech and movement present Affect: normal affect Attitude: cooperative Thought process: Normal thought process present Thought content: Normal thought content present Insight: Good insight present (Psych) Judgement: Good judgement present (Psych) Assessment and Plan Assessment & Plan (1) Edema: Code(s): R60.9 - Edema, unspecified Plan: Labs ordered, continue hctz (2) COVID-19: Code(s): U07.1 - COVID-19 Plan: Doing much better (3) HTN (hypertension): Code(s): I10 - Essential (primary) hypertension Plan: Decreasing irbesartan due to low BPs, continue to monitor BP at home Plan The patient agreed to the use of a healthcare or medical for this encounter. Scribed for LILIA Aleman by [facility] or medical, on 04/14/2023 at 15:20 EST. Orders: Orders B Type Natriuretic Peptide Today R60.9 - Edema, unspecified Complete Blood Count Auto Diff Today R60.9 - Edema, unspecified Comprehensive Met. Panel Today R60.9 - Edema, unspecified TSH reflex Free T4 Today R60.9 - Edema, unspecified Medications: New irbesartan 75 mg PO DAILY 90 tabs 0RF Changed From hydrochlorothiazide may take with irbesartan-hctz combo 12.5 mg PO DAILY 90 tabs 0RF To hydrochlorothiazide 12.5 mg PO DAILY 90 tabs 0RF From alprazolam 0.5 mg PO DAILY PRN 30 tabs 1RF Anxiety To alprazolam 0.5 mg PO BID PRN 60 tabs 1RF Anxiety Refilled hydrocodone-acetaminophen 5-325 mg 1 tab PO DAILY 30 days PRN 30 tabs 0RF pain Discontinued irbesartan-hydrochlorothiazide 150-12.5 mg Discontinued Reason: Doctor's Order 1 tab PO DAILY 90 tabs 1RF Coding Level of Care Code Est Pt Level 3 (03714) Diagnoses Edema R60.9 COVID-19 U07.1 HTN (hypertension) I10
[2023-04-14 15:06] VITALS: BP 124/78; PULSE 76; O2SAT 98; BMI 36.6
== END 2023-04-14 15:50 | disposition home or self-care (01) ==
PROVIDERS: PCP Nurse Practitioner Family; Visit Provider Nurse Practitioner Family
DX: R60.9 Edema, unspecified (principal); U07.1 COVID-19; I10 Essential (primary) hypertension
CPT/HCPCS: 99213

== ENCOUNTER 2023-07-24 14:02 | Outpatient (AMB) | payer MEDICARE, SELFPAY ==
--- NOTE | 2023-07-24 14:04 | A.OFFPC_ITS ---
Vital Signs 07/24/23 14:06 BMI Reason not done Patient refused/unable BP 130/88 Blood Pressure Location Lt brachial Position Sitting Pulse 66 Pulse Source Pulse Oximeter Pulse Oximetry (%) 98 Oxygen Delivery Method Room Air Intake Visit Reasons: 3 Month follow up edema Intake Note: Patient here to follow up on bilat Edema Allergies Sulfa (Sulfonamide Antibiotics) Allergy (Unknown, Verified 07/24/23 14:07) rash tramadol Adverse Reaction (Intermediate, Verified 07/24/23 14:07) Nausea amoxicillin Adverse Reaction (Unknown, Verified 07/24/23 14:07) Yeast infection rosuvastatin [Crestor] Adverse Reaction (Unknown, Verified 07/24/23 14:07) Worsened PMR Clotrimazole-Betamethasone Adverse Reaction (Unknown, Uncoded 07/24/23 14:07) Red blotches on skin Medication List - Last Reconciled 07/24/23 by Seng Dalton, SUPERVISOR [employer]CHL[employer]IC [employer]A-BC alprazolam 0.5 mg PO BID PRN aspirin (Talia Low Dose Aspirin) 81 mg PO DAILY benzonatate 200 mg PO BID-TID PRN brimonidine 0.2% 1 drp ophthalmic-Left BID ezetimibe 10 mg PO BEDTIME hydrochlorothiazide 12.5 mg PO DAILY hydrocodone-acetaminophen 5-325 mg 1 tab PO DAILY PRN 30 days irbesartan 75 mg PO DAILY Knee brace Bilateral knee braces (hinged knee braces) latanoprost 0.005% 1 drp ophthalmic (eye) BEDTIME nystatin 1 appl topical DAILY polyethylene glycol 3350 (Miralax) 17 grams PO BID PRN prednisone 5 mg PO BEDTIME timolol maleate 0.5% 1 drp ophthalmic-Left BID vit C,D-Og-nfgen-lutein-zeaxan 250-90-40-1 mg (PreserVision AREDS-2) 1 tab PO BID Tobacco use date assessed: 04/14/23 Dental Screening Dental Screen Date: 04/14/23 HPI 3 Month follow up edema HPI Details Pt reports ongoing edema of her BLE. She is taking hydrochlorothiazide 12.5mg, pt knows she can increase this if needed. BNP was 118, echo was fairly benign, will continue to monitor. Pt would not like to see vascular. She is not interested in compression stockings. Denies chest pain, increased shortness of breath, and dizziness. Pt reports weakness of her BLE. I believe this has to do with arthritis and deconditioning. She would like a referral for home PT, will refer. encouraged pt to get labs [facility] Medical History CKD (chronic kidney disease) HTN (hypertension) Osteoarthritis Polymyalgia rheumatica Surgical History History of breast lump/mass excision S/P tonsillectomy and adenoidectomy Family History Father CVD (cardiovascular disease) Mother Cancer Social History [facility]hold Members: [facility] Do you presently have visiting nurse or other home services: Yes Alcohol intake: never Patient Tobacco Use Status: Former Tobacco user Quit Date: quit 4-5 years ago e-Cigarette/Vaping Use: Never Used Second Hand Smoke Exposure: No service: No Current occupational status: retired Cognitive needs: No Hearing needs: No Vision needs: No Questionnaire Thrive Questionnaire Date Thrive assessed: 11/21/22 ABIMAEL-7 AMB Questionnaire ABIMAEL-7 Date ABIMAEL - 7 assessed: 08/27/21 Source: Developed by Drs. Saurabh Aquino, Tiffanie Walker, Sung Tomas and colleagues, with an educational maritza from [employer]. Review of Systems Const Reports as per HPI Physical exam (Primary Care) Vital Signs: Last Vital Signs Pulse 66 07/24/23 14:06 BP 130/88 07/24/23 14:06 Pulse Ox 98 07/24/23 14:06 Oxygen Delivery Method Room Air 07/24/23 14:06 Tobacco/Smoking Status: Tobacco use Status Tobacco use date assessed 04/14/23 07/24/23 14:05 Patient Tobacco Use Status Former Tobacco user 07/24/23 14:05 e-Cigarette/Vaping Use Never Used 07/24/23 14:05 Thrive Assessment: Date of Thrive Assessment Date Thrive assessed 11/21/22 07/24/23 14:05 Const General: cooperative Orientation/consciousness: patient oriented x3 Resp Effort & Inspection: normal respiratory effort Auscultation: clear to auscultation bilaterally Cardio Rate: regular rate Rhythm: regular rhythm Heart sounds: S1 normal heart sound present, S2 normal heart sound present and Murmur heart sound present systolic Neuro General: patient oriented x3 Extrem Other: +1-2 pitting edema to BLE Psych Appearance: grossly normal Mental Status: mental status grossly normal Speech and movement: Normal speech and movement present Affect: normal affect Attitude: cooperative Thought process: Normal thought process present Thought content: Normal thought content present Insight: Good insight present (Psych) Judgement: Good judgement present (Psych) Assessment and Plan Assessment & Plan (1) Weakness of both lower extremities: Code(s): R29.898 - Other symptoms and signs involving the musculoskeletal system Plan: Referred for home PT (2) Edema: Code(s): R60.9 - Edema, unspecified Plan: home PT, leg elevation when lying or sitting down, continue diuretics Plan The patient agreed to the use of a senior medical transcriptionist for this encounter. Scribed for LILIA Aleman by [facility] senior medical transcriptionist, on 07/24/2023 at 14:35 EST. Orders: Referrals [facility] Referral R29.898 - Other symptoms and signs involving the musculoskeletal system Coding Level of Care Code Est Pt Level 3 (14710) Diagnoses Weakness of both lower extremities R29.898 Edema R60.9
[2023-07-24 14:06] VITALS: BP 130/88; PULSE 66; O2SAT 98
== END 2023-07-24 16:08 | disposition home or self-care (01) ==
PROVIDERS: PCP Nurse Practitioner Family; Visit Provider Nurse Practitioner Family
DX: R29.898 Other symptoms and signs involving the musculoskeletal system (principal); R60.9 Edema, unspecified
CPT/HCPCS: 99213

== ENCOUNTER 2023-11-24 14:47 | Outpatient (AMB) | payer MEDICARE, SELFPAY ==
[2023-11-24 14:57] VITALS: BP 132/86; PULSE 78; O2SAT 95
--- NOTE | 2023-11-24 14:57 | A.OFFPC_ITS ---
Vital Signs 11/24/23 14:57 Height 5 ft 5 in BMI Reason not done Patient refused/unable BP 132/86 Blood Pressure Location Rt brachial Position Sitting Pulse 78 Pulse Source Pulse Oximeter Pulse Oximetry (%) 95 Oxygen Delivery Method Room Air Intake Visit Reasons: 5 month follow up Intake Note: patient is here for 5 month follow up Naprapath Required: No Accompanied by: Self / Same As Patient Allergies Sulfa (Sulfonamide Antibiotics) Allergy (Unknown, Verified 11/24/23 14:58) rash tramadol Adverse Reaction (Intermediate, Verified 11/24/23 14:58) Nausea amoxicillin Adverse Reaction (Unknown, Verified 11/24/23 14:58) Yeast infection rosuvastatin [Crestor] Adverse Reaction (Unknown, Verified 11/24/23 14:58) Worsened PMR Clotrimazole-Betamethasone Adverse Reaction (Unknown, Uncoded 08/11/23 14:51) Red blotches on skin Tobacco use date assessed: 04/14/23 Fall risk assessment: No Falls in past year Last assessed Fall Risk: 11/24/23 Dental Screening Dental Screen Date: 04/14/23 HPI 5 month follow up HPI Details HTN: Blood pressure is stable, managed with hydrochlorothiazide 12.5mg and irbesartan 75mg. Will order labs. Denies chest pain, headache, dizziness, and blurred vision. She does report some shortness of breath and leg swelling. Will order BNP, previous echo was fairly benign. Pt did smoke for many years, ? deconditioning/COPD component. She does report not moving as much at home, knee pain (arthritis). Pt did report her son is purchasing a stationary pedal mechanism she can utilize at home. [facility] Medical History Polymyalgia rheumatica Esophageal ulcer Hypercholesteremia Anxiety Hypertension Osteoarthritis Polymyalgia rheumatica CKD (chronic kidney disease) HTN (hypertension) Surgical History Hx of breast lump removal History of tonsillectomy and adenoidectomy History of breast lump/mass excision S/P tonsillectomy and adenoidectomy Family History Father CVD (cardiovascular disease) Mother Cancer Father CVD (cardiovascular disease) Mother Cancer Social History Household Members: Family Housing: Condominium Do you presently have visiting nurse or other home services: Yes Alcohol intake: never Patient Tobacco Use Status: Former Tobacco user e-Cigarette/Vaping Use: Never Used Second Hand Smoke Exposure: No service: No Current occupational status: retired Cognitive needs: No Hearing needs: No Vision needs: No Questionnaire PHQ-9 Over the last 2 weeks, how often have you been bothered by any of the following problems? 73338 - PHQ-9 Billing: Patient declined-do not bill Source: Developed by Drs. Saurabh Aquino, Tiffanie Walker, Sung Tomas and colleagues, with an educational maritza from [employer]. Thrive Questionnaire Date Thrive assessed: 11/24/23 I am a: Patient What is your living situation today?: I choose not to answer this question Within the past 12 months, did the food you bought not last and you didn't have the money to get more?: I choose not to answer this question Do you have trouble paying for medicines?: I choose not to answer this question Do you have trouble getting transportation to medical appointments?: I choose not to answer this question Do you have trouble paying your heating and electricity bill?: I choose not to answer this question Do you have trouble taking care of your child, family member or friend?: I choose not to answer this question Do you have trouble with day-to-day activities such as bathing, preparing meals, shopping, managing finances, etc.?: I choose not to answer this question Are you currently unemployed and looking for a job?: I choose not to answer this question Are you interested in more education?: I choose not to answer this question Please select the resources that you would like help with: None Currently or been in a relationship where the following occur: I choose not to answer THRIVE Score: 0 AUDIT C Alcohol Use Questionnaire (AUDIT-C) 1. How often do you have a drink containing alcohol?: Never 3. How often do you have six or more drinks on one occasion?: Never Total Score: 0 Score Reviewed/Action Taken: Yes ABIMAEL-7 AMB Questionnaire ABIMAEL-7 Date ABIMAEL - 7 assessed: 11/24/23 Source: Developed by Drs. Saurabh Aquino, Tiffanie Walker, Sung Tomas and colleagues, with an educational maritza from [employer]. ABIMAEL-7 Assessment Billing ABIMAEL-7 Assessment Tool: pt declined-do not bill Review of Systems Const Reports as per HPI Physical exam (Primary Care) Vital Signs: Last Vital Signs Pulse 78 11/24/23 14:57 BP 132/86 11/24/23 14:57 Pulse Ox 95 11/24/23 14:57 Oxygen Delivery Method Room Air 11/24/23 14:57 Tobacco/Smoking Status: Tobacco use Status Tobacco use date assessed 04/14/23 11/24/23 14:59 Patient Tobacco Use Status Former Tobacco user 11/24/23 14:59 e-Cigarette/Vaping Use Never Used 11/24/23 14:59 Thrive Assessment: Date of Thrive Assessment Date Thrive assessed 11/24/23 11/24/23 14:59 Currently or been in a relationship where the following occur: I choose not to answer Const General: cooperative Orientation/consciousness: patient oriented x3 Resp Other: very faint crackles to baes Effort & Inspection: normal respiratory effort Auscultation: clear to auscultation bilaterally Cardio Rate: regular rate Rhythm: regular rhythm Heart sounds: S1 normal heart sound present, S2 normal heart sound present and Murmur heart sound present systolic Neuro General: patient oriented x3 Extrem Other: trace to BLE Psych Appearance: grossly normal Mental Status: mental status grossly normal Speech and movement: Normal speech and movement present Affect: normal affect Attitude: cooperative Thought process: Normal thought process present Thought content: Normal thought content present Insight: Good insight present (Psych) Judgement: Good judgement present (Psych) Assessment and Plan Assessment & Plan (1) HTN (hypertension): Code(s): I10 - Essential (primary) hypertension Plan: Stable, labs ordered (2) SOB (shortness of breath): Code(s): R06.02 - Shortness of breath Plan: BNP ordered, previous echo was fairly benign, ? COPD/deconditioning. Pt was not interested in PFT testing currently, highly unlikely pneumonia (3) Leg swelling: Code(s): M79.89 - Other specified soft tissue disorders Plan: BNP ordered Plan The patient agreed to the use of a medical biller/coder for this encounter. Scribed for Seng Dalton, ELECTRONICS TECHNICIAN APPRENTICE- by [place], medical biller/coder, on 11/24/2023 at 15:15 EST. Orders: Orders 2 Complete Blood Count Auto Diff Today I10 - Essential (primary) hypertension Comprehensive [place]. Panel Fast Today I10 - Essential (primary) hypertension TSH reflex Free T4 Today I10 - Essential (primary) hypertension UA CC w/rflx Micro + Cult Today I10 - Essential (primary) hypertension Lipid Panel Today I10 - Essential (primary) hypertension B Type Natriuretic Peptide Today M79.89 - Other specified soft tissue disorders, R06.02 - Shortness of breath Medications: Refilled irbesartan 75 mg PO DAILY 90 tabs 4RF Coding Level of Care Code Est Pt Level 3 (88515) Diagnoses HTN (hypertension) I10 SOB (shortness of breath) R06.02 Leg swelling M79.89
== END 2023-11-24 16:02 | disposition home or self-care (01) ==
PROVIDERS: PCP Nurse Practitioner Family; Visit Provider Nurse Practitioner Family
DX: I10 Essential (primary) hypertension (principal); R06.02 Shortness of breath; M79.89 Other specified soft tissue disorders
CPT/HCPCS: 99213

== ENCOUNTER 2024-08-11 07:27 | Outpatient (AMB) | payer MEDICARE, SELFPAY ==
--- NOTE | 2024-08-11 07:20 | A.OFFPC_ITS ---
Intake Visit Reasons: Blood Pressure Med Review Allergies Sulfa (Sulfonamide Antibiotics) Allergy (Unknown, Verified 11/24/23 14:58) rash tramadol Adverse Reaction (Intermediate, Verified 11/24/23 14:58) Nausea amoxicillin Adverse Reaction (Unknown, Verified 11/24/23 14:58) Yeast infection rosuvastatin [Crestor] Adverse Reaction (Unknown, Verified 11/24/23 14:58) Worsened PMR Clotrimazole-Betamethasone Adverse Reaction (Unknown, Uncoded 08/11/23 14:51) Red blotches on skin Medication List - Last Reconciled 08/11/24 by Seng Dalton, RISK CONTROL REPRESENTATIVE- alprazolam 0.5 mg PO BID PRN aspirin (Talia Low Dose Aspirin) 81 mg PO DAILY brimonidine 0.2% 1 drp ophthalmic-Left BID ezetimibe 10 mg PO BEDTIME hydrochlorothiazide 25 mg PO DAILY hydrocodone-acetaminophen 5-325 mg 1 tab PO DAILY PRN 30 days irbesartan 75 mg PO DAILY Knee brace Bilateral knee braces (hinged knee braces) latanoprost 0.005% 1 drp ophthalmic (eye) BEDTIME nystatin 1 appl topical DAILY polyethylene glycol 3350 (Miralax) 17 grams PO BID PRN prednisone 5 mg PO DAILY timolol maleate 0.5% 1 drp ophthalmic-Left BID vit C,Z-Ao-zkxal-lutein-zeaxan 250-90-40-1 mg (PreserVision AREDS-2) 1 tab PO BID Tobacco use date assessed: 04/14/23 Dental Screening Dental Screen Date: 04/14/23 HPI Blood Pressure Med Review HPI Details History of Present Illness The patient is an 89-year-old female presenting with swelling of the bilateral lower extremities and chronic pain management. She reports experiencing pitting edema, characterized by variability in swelling severity with episodes of good and bad days. The edema and her history of osteoarthritis exacerbate her chronic pain, particularly impacting her ability to move. Her medication regimen for hypertension includes hydrochlorothiazide, which is being adjusted to better manage her symptoms (edema). Her blood pressure readings remain generally stable. Ongoing pain is managed with hydrocodone taken as needed, and she understands the associated risks and proper usage protocols. Social support is provided by her son, with whom she lives, facilitating her care due to her limited mobility over recent months. Review of Systems - Cardiovascular: Denies any chest pain. - Respiratory: Denies increased shortnes s of breath. - Musculoskeletal: Reports ongoing pain due to osteoarthritis; reports bilateral lower extremity swelling consistent with pitting edema. - General: Reports variability in the se verity of symptoms; some good and bad days. Plan The management will include increasing hydrochlorothiazide to 25 mg to address bilateral lower extremity swelling due to pitting edema. Laboratory tests are recommended to monitor medication impact, considering her stable blood pressure readings. Chronic pain due to osteoarthritis will continue to be managed with hydrocodone as needed, with clear instructions regarding its use and potential impacts on daily activities such as driving. Continual emphasis on safety and medication compliance in her home environment, supported by her son, are vital. Discussion Notes I discussed with the patient the management of her edema and chronic pain due to osteoarthritis. The increase of hydrochlorothiazide aims to address the pitting edema, encouraging her to complete laboratory tests soon for further evaluation. The continued prescription of hydrocodone PRN is to manage chronic pain, with detailed guidance on usage and compliance, ensuring she understands not to share the medication or drive under its influence. We emphasized following up on her lab work and evaluating treatment effectiveness. Patient Instructions - Increase hydrochlorothiazide to 25 mg as instructed. - Get lab tests done as soon as possible . - Use hydrocodone only as needed; do not share or drive after taking it. - Observe and report any new symptoms or worsening of current symptoms. - Reach out if any questions or concerns arise regarding medications. [facility] Medical History Polymyalgia rheumatica Esophageal ulcer Hypercholesteremia Anxiety Hypertension Osteoarthritis Polymyalgia rheumatica CKD (chronic kidney disease) HTN (hypertension) Surgical History Hx of breast lump removal History of tonsillectomy and adenoidectomy History of breast lump/mass excision S/P tonsillectomy and adenoidectomy Family History Father CVD (cardiovascular disease) Mother Cancer Father CVD (cardiovascular disease) Mother Cancer Social History [facility]: [facility] Do you presently have visiting nurse or other home services: Yes Alcohol intake: never Patient Tobacco Use Status: Former Tobacco user e-Cigarette/Vaping Use: Never Used Second Hand Smoke Exposure: No service: No Current occupational status: retired Cognitive needs: No Hearing needs: No Vision needs: No Questionnaire Thrive Questionnaire Date Thrive assessed: 11/24/23 ABIMAEL-7 AMB Questionnaire ABIMAEL-7 Date ABIMAEL - 7 assessed: 11/24/23 Source: Developed by Drs. Saurabh Aquino, Tiffanie Walker, Sung Tomas and colleagues, with an educational maritza from [employer]. Physical exam (Primary Care) Tobacco/Smoking Status: Tobacco use Status Tobacco use date assessed 04/14/23 11/24/23 14:59 Patient Tobacco Use Status Former Tobacco user 11/24/23 14:59 e-Cigarette/Vaping Use Never Used 11/24/23 14:59 Thrive Assessment: Date of Thrive Assessment Date Thrive assessed 11/24/23 11/24/23 14:59 Telehealth Telehealth Telehealth Platform: Telephone Location of provider rendering services: practice address Location of patient: address on file Patient Identification confirmed using: Name, : Yes Telehealth method: voice only Patient verbally consented to treatment: Yes Patient verbally consented to billing insurance company: Yes Patient informed of any privacy concerns related to visit: Yes Minutes spent on Phone/Video with Pt.: 15 Coding Level of Care Code Tele Est Pt Level 3 (73100) Diagnoses Leg swelling M79.89 Edema R60.9 HTN (hypertension) I10 Assessment & Plan Assessment & Plan (1) Leg swelling: Code(s): M79.89 - Other specified soft tissue disorders Category: Medical (2) Edema: Code(s): R60.9 - Edema, unspecified Category: Medical (3) HTN (hypertension): Code(s): I10 - Essential (primary) hypertension Category: Medical Plan . Medications: Changed From aspirin (Talia Low Dose Aspirin) 81 mg PO DAILY To aspirin (Talia Low Dose Aspirin) 81 mg PO DAILY 90 days 90 tabs 0RF From hydrochlorothiazide 12.5 mg PO DAILY 90 tabs 0RF To hydrochlorothiazide 25 mg PO DAILY 90 tabs 0RF Refilled ezetimibe 10 mg PO BEDTIME 90 tabs 2RF irbesartan 75 mg PO DAILY 90 tabs 4RF hydrocodone-acetaminophen 5-325 mg 1 tab PO DAILY 30 days PRN 30 tabs 0RF pain
== END 2024-08-11 10:19 | disposition home or self-care (01) ==
LOC: HO.HMCC 07:27
PROVIDERS: PCP Nurse Practitioner Family; Visit Provider Nurse Practitioner Family
DX: I10 Essential (primary) hypertension (principal); M79.89 Other specified soft tissue disorders; R60.9 Edema, unspecified

== ENCOUNTER → 2024-08-11 07:27 | Outpatient (BNVA) | payer MEDICARE, SELFPAY | PROVIDERS: PCP Nurse Practitioner Family; Visit Provider Nurse Practitioner Family ==

== ENCOUNTER 2024-12-13 06:37 | Outpatient (AMB) | payer MEDICARE, SELFPAY ==
--- OUTSIDE RECORDS SUMMARY | 2024-12-13 06:41 | XMS_ITS | Patient Health Record ---
Author [facility] [place] Address [address] [place] [address] Care Team Providers Care Forklift Truck Mechanic Name Role Phone Devika Bhat Primary Care Provide Addy Alcala Unavailable [phone] Allergies Allergen (clinical drug ingredient) Drug/Non Drug Allergy documented on EMR Reaction Allergy Type Onset Date Status sulfa breaks out Drug Allergy Active codeine Codeine gall bladder Drug Allergy Acti ve Reason For Referral No Information Medications Medication SIG (Take, Route, Frequency, Duration) Notes Start Date End Date Status predniSONE 2.5 MG TK 2 TS PO QD WITH F OOD OR MILK Oral; Duration: 30 Active Omeprazole 20 MG TK ONE C PO ONCE A D AY 30 MINUTES PRIOR TO SUPPERTIME Oral; Duration: 30 Active Metoprolol Succinate Active Losartan Potassium-HCTZ 50-12.5 MG TK 1 T PO QD Oral; Duration: 30 Active Aspirin 81 MG 1 tablet Orally Once a day Active Crestor 10 MG TK 1 T PO QD Oral; Duration: 30 Active Ranitidine HCl 300 MG TK ONE C PO QHS Or al; Duration: 30 Active ALPRAZolam 0.5 MG TK 1 T PO BID Oral; Duration: 30 Active Metoprolol Tartrate 25 MG TK 1 T PO BID Oral; Duration: 30 Active HYDROcodone-Acetaminophen 5-325 MG TK 1 T PO Q 6 H PRN Oral; Duration: 15 Active Problems Problem Type SNOMED Code ICD Code Onset Dates Problem Status W/U Status Risk Notes Problem Disorder of joint of ankle and/or foot (158305252) Arthritis - Degenerative (719.97) Active confirmed 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, 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 Problem Ingrowing nail (533004773) Ingrowing Nail (703.0) Active confirmed Problem Tinea pedis (1935433) Tinea Pedis (110.4) Active confirmed Plan Of Treatment Pending Test Test Name Order Date [id number] Plate 02/03/2014 Insurance Providers Payer Name Payer Address Payer Phone Subscriber Number Group Number Insured Name Patient Relationship to Insured Coverage Start Date Coverage End Date Medicare National [employer]t S[employer] [address] [place] [address] [id number] Spencer Benitez Self - patient is the insured [employer] [address] [place] [address] [phone] [id number] Spencer Benitez Self - patient is the insured Medical (General) History Medical History History ICD Code Arthritis Back,Hip,and Knee pain Gall bladder problems Hiatal hernia High blood pressure Chicken pox Measles Mumps
--- NOTE | 2024-12-13 07:23 | MHC.PC.OV ---
Intake Visit Reasons: 4m f/u Blood Pressure Med Review Allergies Sulfa (Sulfonamide Antibiotics) Allergy (Unknown, Verified 11/24/23 14:58) rash ezetimibe Adverse Reaction (Intermediate, Verified 12/13/24 07:18) Muscle cramps tramadol Adverse Reaction (Intermediate, Verified 11/24/23 14:58) Nausea amoxicillin Adverse Reaction (Unknown, Verified 11/24/23 14:58) Yeast infection rosuvastatin (Crestor) Adverse Reaction (Unknown, Verified 11/24/23 14:58) Worsened PMR Clotrimazole-Betamethasone Adverse Reaction (Unknown, Uncoded 08/11/23 14:51) Red blotches on skin Medication List - Last Reconciled 12/13/24 by DAWNA EncisoP- alprazolam 0.5 mg PO BID PRN aspirin (Talia Low Dose Aspirin) 81 mg PO DAILY 90 days brimonidine 0.2% 1 drp ophthalmic-Left BID hydrochlorothiazide 25 mg PO DAILY hydrocodone-acetaminophen 5-325 mg 1 tab PO DAILY PRN 30 days irbesartan 75 mg PO DAILY Knee brace Bilateral knee braces (hinged knee braces) latanoprost 0.005% 1 drp ophthalmic (eye) BEDTIME nystatin 1 appl topical DAILY polyethylene glycol 3350 (Miralax) 17 grams PO BID PRN prednisone 5 mg PO DAILY timolol maleate 0.5% 1 drp ophthalmic-Left BID vit C,Y-Ow-uwclx-lutein-zeaxan 250-90-40-1 mg (PreserVision AREDS-2) 1 tab PO BID Tobacco use date assessed: 04/14/23 Dental Screening Dental Screen Date: 04/14/23 HPI 4m f/u Blood Pressure Med Review HPI Details History of Present Illness The patient is an 89-year-old female presenting with hypertension and dyslipidemia. The patient reports her blood pressure readings have been in the range of 110s to 120s systolic over 60s to 70s diastolic, which is considered excellent control. She denies any increased shortness of breath or chest discomfort, indicating stable cardiovascular status. The patient also reports experiencing some edema, for which she is currently on a diuretic. She has been encouraged to obtain laboratory tests in the near future to monitor her condition. Review of Systems - Cardiovascular: Denies chest discomfort, reports blood pressure control within normal limits. - Respiratory: Denies increased shortness of breath. - General: Reports edema. - Neurological: Denies dizziness, headaches. Plan 1. Essential Hypertension The patient is advised to continue monitoring her blood pressure at home, as current readings are well-controlled. She should maintain her current medication regimen and follow up with laboratory tests to ensure continued management of her condition. 2. Dyslipidemia The patient should continue her current treatment for dyslipidemia and monitor her lipid levels regularly. 3. Edema The patient is currently on a diuretic for edema and should continue this medication. She is encouraged to have laboratory tests to assess her condition further. Discussion Notes Patient Instructions - Continue monitoring blood pressure at home and maintain current medication regimen. - Schedule and complete laboratory tests as advised. - Continue treatment for dyslipidemia and monitor lipid levels. [facility] Medical History Polymyalgia rheumatica Esophageal ulcer Hypercholesteremia Anxiety Hypertension Osteoarthritis Polymyalgia rheumatica CKD (chronic kidney disease) HTN (hypertension) Surgical History Hx of breast lump removal History of tonsillectomy and adenoidectomy History of breast lump/mass excision S/P tonsillectomy and adenoidectomy Family History Father CVD (cardiovascular disease) Mother Cancer Father CVD (cardiovascular disease) Mother Cancer Social History [facility] Do you presently have visiting nurse or other home services: Yes Alcohol intake: never Patient Tobacco Use Status: Former Tobacco user e-Cigarette/Vaping Use: Never Used Second Hand Smoke Exposure: No service: No Current occupational status: retired Cognitive needs: No Hearing needs: No Vision needs: No Questionnaire Thrive Questionnaire Date Thrive assessed: 11/24/23 ABIMAEL-7 AMB Questionnaire ABIMAEL-7 Date ABIMAEL - 7 assessed: 11/24/23 Source: Developed by Drs. Saurabh Aquino, Tiffanie Walker, Sung Tomas and colleagues, with an educational maritza from [employer]. Physical exam (Primary Care) Tobacco/Smoking Status: Tobacco use Status Tobacco use date assessed 04/14/23 12/13/24 07:24 Patient Tobacco Use Status Former Tobacco user 12/13/24 07:24 e-Cigarette/Vaping Use Never Used 12/13/24 07:24 Thrive Assessment: Date of Thrive Assessment Date Thrive assessed 11/24/23 12/13/24 07:24 Telehealth Telehealth Telehealth Platform: [facility] Location of provider rendering services: practice address Location of patient: address on file Patient Identification confirmed using: Name, : Yes Telehealth method: voice only Patient verbally consented to treatment: Yes Patient verbally consented to billing insurance company: Yes Patient informed of any privacy concerns related to visit: Yes Minutes spent on Phone/Video with Pt.: 15 Coding Level of Care Code Tele Est Pt Level 3 (30762) Diagnoses HTN (hypertension) I10 Hypercholesteremia E78.00 Edema R60.9 Assessment & Plan Assessment & Plan (1) HTN (hypertension): Code(s): I10 - Essential (primary) hypertension Category: Medical (2) Hypercholesteremia: Code(s): E78.00 - Pure hypercholesterolemia, unspecified Category: Medical (3) Edema: Code(s): R60.9 - Edema, unspecified Category: Medical Plan . Orders: Orders Complete Blood Count Auto Diff Today I10 - Essential (primary) hypertension Lipid Panel Today I10 - Essential (primary) hypertension Vitamin D 25-OH Total Today E55.9 - Vitamin D deficiency, unspecified B Type Natriuretic Peptide Today R60.9 - Edema, unspecified Comprehensive [place]. Panel Fast Today I10 - Essential (primary) hypertension TSH reflex Free T4 Today I10 - Essential (primary) hypertension UA CC w/rflx Micro + Cult Today I10 - Essential (primary) hypertension Medications: Refilled hydrocodone-acetaminophen 5-325 mg 1 tab PO DAILY PRN 30 tabs 0RF pain 30 days Discontinued ezetimibe Discontinued Reason: Patient Refused 10 mg PO BEDTIME 90 tabs 2RF
== END 2024-12-13 09:21 | disposition home or self-care (01) ==
LOC: HO.HMCC 06:38
PROVIDERS: PCP Nurse Practitioner Family; Visit Provider Nurse Practitioner Family
DX: I10 Essential (primary) hypertension (principal); E78.00 Pure hypercholesterolemia, unspecified; R60.9 Edema, unspecified